=== PATIENT | female | born 1990 | race Hispanic/Latino ===

== ENCOUNTER 2018-11-13 17:14 | Emergency (ER) | payer SELFPAY ==
[2018-11-13 17:21] VITALS: BP 148/96; PULSE 98; RESP 15; TEMP 36.6; O2SAT 99; BMI 51.0
[2018-11-13 20:29] VITALS: BP 140/82; PULSE 95; RESP 18; TEMP 37.1; O2SAT 96
--- NOTE | 2018-11-13 20:32 | ED.URI ---
HPI - URI/Sore Throat <LUZMARIA Harrington - Last Filed: 11/13/18 22:02> General Chief Complaint: Upper Respiratory Symptoms Stated Complaint: red and white stuff back of throats Time Seen by Provider: 11/13/18 20:09 Source: patient Mode of arrival: ambulatory Limitations: no limitations History of Present Illness HPI Narrative: 28-year-old female with history of steatohepatitis here for complaint of sore throat that started since yesterday. She also states she noticed that she has some whitish spots to tonsillar area. She denies any fevers or chills. Positive p.o. intake. No nausea or vomiting. She states she had cold-like symptoms over the past several days as well. These are mostly resolved. She denies any stressors or relievers of her symptoms. No other concerns or complaints at this timeframe MD Complaint: sore throat Related Data Previous Rx's Medication Instructions Recorded amoxicillin-pot clavulanate 1 tab PO Q12H #20 tab 12/20/17 [Augmentin] naproxen 500 mg PO Q12H PRN #20 tab 12/20/17 Allergies Allergy/AdvReac Type Severity Reaction Status Date / Time No Known Drug Allergies Allergy Verified 11/13/18 17:21 Review of Systems <LUZMARIA Harrington - Last Filed: 11/13/18 22:02> Constitutional Denies chills, Denies fatigue, Denies fever(s), Denies lethargy and Denies weakness Eyes Denies change in vision, Denies eye discharge, Denies irritation and Denies loss of vision ENT Ears, Nose, Mouth, and Throat: Reports sore throat Cardiovascular Denies dyspnea and Denies dyspnea on exertion Respiratory Denies cough, Denies dyspnea, Denies dyspnea on exertion and Denies wheezing Gastrointestinal Gastrointestinal: Denies abdominal pain, Denies change in bowel habits, Denies diarrhea, Denies nausea and Denies vomiting Genitourinary Denies hematuria, Denies flank pain, Denies urinary incontinence and Denies urinary urgency Musculoskeletal Denies back pain, Denies muscle weakness, Denies numbness and Denies tingling Integumentary/Breasts Denies pruritus, Denies erythema, Denies rash and Denies wounds Neurologic Denies confusion, Denies loss of vision, Denies numbness, Denies tingling and Denies weakness Psychiatric Denies anxiety, Denies confusion, Denies depression, Denies homicidal ideation and Denies suicidal ideation Endocrine Denies fatigue and Denies flushing Hematologic/Lymphatic Denies easy bruising Allergic/Immunologic Denies wheezing PFSH <LUZMARIA Harrington - Last Filed: 11/13/18 22:02> Medical History Anxiety (Chronic) Non-alcoholic fatty liver disease (Chronic) Obesity (Chronic) Family History (Updated 04/23/17 @ 00:00 by Aixa Gonsalves PA-C) Father Anxiety Mother Depression with anxiety Social History Smoking Status: Never smoker Family History (Updated 04/23/17 @ 00:00 by Aixa Gonsalves PA-C) Father Anxiety Mother Depression with anxiety Social History Smoking Status: Never smoker Exam <LUZMARIA Harrington - Last Filed: 11/13/18 22:02> Initial Vital Signs Initial Vital Signs: Vital Signs Temperature 97.8 F 11/13/18 17:21 Pulse Rate 98 H 11/13/18 17:21 Respiratory Rate 15 11/13/18 17:21 Blood Pressure 148/96 H 11/13/18 17:21 Pulse Oximetry 99 11/13/18 17:21 Const General: cooperative and well developed Nutritional Appearance: well nourished Orientation: alert, awake, oriented x3 and not confused HENKY Mouth: oral mucosae normal and moist mucous membranes Throat: posterior oropharynx abnormal erythema Eyes Conjunctivae: conjunctivae normal Sclera: sclerae normal Pupils: PERRL EOM: EOM intact bilaterally Resp Effort & Inspection: normal respiratory effort, able to speak in complete sentences, no respiratory distress and no use of accessory muscles Auscultation: clear to auscultation bilaterally, no rales, no rhonchi and no wheezes Cardio Rate: regular rate Rhythm: regular rhythm Heart Sounds: no click, no gallops, no murmurs and no rubs Pulses: normal peripheral pulses Skin General: no rashes or lesions noted, No jaundice and No petechiae Neuro General: alert, oriented x3, gait normal and no focal motor deficits Speech: speech normal <Ryan Scott DO - Last Filed: 11/14/18 00:45> Initial Vital Signs Initial Vital Signs: Vital Signs Temperature 97.8 F 11/13/18 17:21 Pulse Rate 98 H 11/13/18 17:21 Respiratory Rate 15 11/13/18 17:21 Blood Pressure 148/96 H 11/13/18 17:21 Pulse Oximetry 99 11/13/18 17:21 Course <LUZMARIA Harrington - Last Filed: 11/13/18 22:02> Vital Signs - 8 hr 11/13/18 17:21 11/13/18 20:29 Temperature 97.8 F 98.7 F Pulse Rate 98 H 95 H Respiratory Rate 15 18 Blood Pressure 148/96 H Blood Pressure [Right Arm] 140/82 Pulse Oximetry 99 96 <Ryan Scott DO - Last Filed: 11/14/18 00:45> Vital Signs - 8 hr 11/13/18 17:21 11/13/18 20:29 Temperature 97.8 F 98.7 F Pulse Rate 98 H 95 H Respiratory Rate 15 18 Blood Pressure 148/96 H Blood Pressure [Right Arm] 140/82 Pulse Oximetry 99 96 MDM - URI/Sore Throat <LUZMARIA Harrington - Last Filed: 11/13/18 22:02> Lab Data Point of Care Testing Rapid Strep A Negative MDM Narrative Medical decision making narrative: Strep test was obtained was negative. Sinus symptoms presents as a viral pharyngitis. [id number] Tylenol or Motrin as needed for any discomfort. Salt water gargles to help with any inflammation. Use lozenges to also help with discomfort. Follow up with primary care provider next week. Plenty of fluids and rest. For any worsening symptoms return to the emergency room. <Ryan Scott DO - Last Filed: 11/14/18 00:45> Lab Data Point of Care Testing Rapid Strep A Negative Discharge Plan Departure Patient Disposition: Home Clinical Impression: Acute viral pharyngitis Discharge Date/Time: 11/13/18 20:56 Interventions: ED Discharge Assessment Last Done: 11/13/18 20:56 Instructions: DI for Viral Pharyngitis Activity Restrictions/Additional Instructions: Strep test was obtained was negative. Sinus symptoms presents as a viral pharyngitis. [id number] Tylenol or Motrin as needed for any discomfort. Salt water gargles to help with any inflammation. Use lozenges to also help with discomfort. Follow up with primary care provider next week. Plenty of fluids and rest. For any worsening symptoms return to the emergency room. Prescriptions: No Action naproxen 500 mg tablet 500 mg PO Q12H PRN (Reason: pain) Qty: 20 RF: 0 amoxicillin-pot clavulanate [Augmentin] 875-125 mg tablet 1 tab PO Q12H Qty: 20 RF: 0 Referrals: Aixa Gonsalves PA-C [Primary Care Provider] - Stand Alone Forms: Work Release Note, Work/School Release <Ryan Scott DO - Last Filed: 11/14/18 00:45> Cosign ED Attending Sarinaature Attestation: I was immediately available in the department for consultation. Documentation has been reviewed. I agree with assessment and plan.
== END 2018-11-13 20:56 | disposition home or self-care (01) ==
PROVIDERS: Emergency Provider Nurse Practitioner Family; Family Provider Physician Assistant; PCP Physician Assistant
DX: J02.9 Acute pharyngitis, unspecified (principal)
CPT/HCPCS: 87880; 99282

== ENCOUNTER → 2018-12-01 09:56 | Outpatient (CLI) | payer OTHER, MEDICAID, SELFPAY | PROVIDERS: Family Provider Physician Assistant; PCP Physician Assistant; Visit Provider Physician Assistant | DX: J02.9 Acute pharyngitis, unspecified (principal) | CPT/HCPCS: 87070 ==

== ENCOUNTER 2019-05-31 22:04 | Emergency (ER) | payer SELFPAY ==
[2019-05-31 22:15] VITALS: BP 150/80; PULSE 108; RESP 26; TEMP 36.8; O2SAT 99; BMI 59.1
--- NOTE | 2019-05-31 22:56 | DI.RAD.S_ITS ---
PROCEDURE: XR CHEST 1V INDICATIONS: shortness of breath TECHNIQUE: One view of the chest was acquired. COMPARISON: CT pulmonary angiogram 05/31/2019. [facility], , CHEST 2 VIEW, 05/21/2012, 13:05. FINDINGS: Surgical changes and devices: None. Lungs and pleura: Lungs are clear. No pleural effusions or pneumothorax. Mediastinum: Mediastinal contours appear normal. Heart size is normal. Bones and chest wall: No suspicious bony lesions. Overlying soft tissues appear unremarkable. IMPRESSION: No acute cardiopulmonary abnormality. Dictated by: Abdulkadir Hassan M.D. on 06/01/2019 at 7:29 Approved by: Abdulkadir Hassan M.D. on 06/01/2019 at 7:30
[2019-05-31 23:04] LABS: Add Manual Diff / Slide Review NO; Basophils Absolute Auto 100 /uL (0-100); Basophils Percent Auto 0.8 % (0-2); Eosinophils Absolute Auto 500 /uL (0-450); Eosinophils Percent Auto 4.2 % (2-4); Hematocrit 36.9 % (36-46); Hemoglobin 12.7 g/dL (12.0-16.0); Lymphocytes Absolute Auto 4600 /uL (1100-4500); Lymphocytes Percent Auto 38.2 % (25-40); Mean Corpuscular HGB Conc 34.4 % (30-36); Mean Corpuscular Hemoglobin 28.7 PG (26-34); Mean Corpuscular Volume 83.5 fL (80-100); Monocytes Absolute Auto 1000 /uL (0-900); Monocytes Percent Auto 7.9 % (3-14); Neutrophils Absolute Auto 5900 /uL (1500-7000); Neutrophils Percent Auto 48.9 % (50-75); Platelet Count 448 X10^3/uL (150-400); Red Blood Cell Count 4.42 X10^6/uL (4.0-5.2); Red Cell Distribution Width 13.4 % (11.6-14.8); White Blood Cell Count 12.1 X10^3/uL (4.5-11.0)
--- NOTE | 2019-05-31 23:05 | ED.SOB ---
HPI - SOB/Dyspnea General Chief Complaint: Shortness of Breath/Dyspnea Stated Complaint: states swelling in her ankles,hard time breathing Time Seen by Provider: 05/31/19 22:17 Source: patient Mode of arrival: Ambulatory History of Present Illness HPI Narrative: Patient is an obese 29-year-old female who presents with increasing shortness of breath. She says it has been ongoing for couple of his weeks progressively getting worse. She says that she typically sleeps with 5 pillows that has not changed. She was going up and downstairs and moving things a few days ago she had a stop frequently. She feels like she can't catch her breath. She denies any chest pain no fevers or productive cough. She has noticed increasing leg swelling as well. In fact her left leg has some erythema on it she is not sure what she did. She denies any travel. She does have a previous smoking history. MD Complaint: shortness of breath Onset (ago): day(s) Severity: moderate Relieving factors: rest Exacerbating factors: exertion and movement Related Data Previous Rx's Medication Instructions Recorded cephalexin [Keflex] 500 mg PO TID #21 cap 06/01/19 Allergies Allergy/AdvReac Type Severity Reaction Status Date / Time No Known Drug Allergies Allergy Verified 12/01/18 09:37 Review of Systems Review of Systems Narrative: GENERAL: Denies chills, fatigue, malaise, fever, sweats, travel HEENT: Denies sinus pain, ear pain, sore throat, difficulty swallowing, neck pain RESPIRATORY: See HPI CARDIOVASCULAR: Denies chest pain, palpitations, orthopnea, edema GASTROINTESTINAL: Denies nausea, vomiting, abdominal pain, diarrhea, constipation, melena. : Denies dysuria, frequency, incontinence, hematuria, urinary retention, flank pain. MUSCULOSKELETAL: Denies weakness, joint pain, or bony pain SKIN: No rash, no erythema, no pruritus NEUROLOGIC: Denies weakness, dizziness, headache, numbness, change in speech, confusion PSYCHIATRIC: No concerning psychosocial issues. 12 point review of systems is negative except for those stated above and HPI Patient History Medical/Surgical History Medical History Anxiety (Chronic) Non-alcoholic fatty liver disease (Chronic) Obesity (Chronic) Family History (Updated 04/23/17 @ 00:00 by Aixa Gonsalves PA-C) Father Anxiety Mother Depression with anxiety Social History Smoking Status: Former smoker Family/Social History Family History Father Anxiety Mother Depression with anxiety Social History Smoking Status: Former smoker alcohol intake frequency: holidays/special occasions only Substance Use Type: does not use Exam Initial Vital Signs Initial Vital Signs: Vital Signs Temperature 98.2 F 05/31/19 22:15 Pulse Rate 108 H 05/31/19 22:15 Respiratory Rate 26 H 05/31/19 22:15 Blood Pressure 150/80 H 05/31/19 22:15 Pulse Oximetry 99 05/31/19 22:15 GENERAL: Overweight well-appearing female HEENT: Head atraumatic,EOMI, pupils reactive, face symmetric CARDIOVASCULAR: Mowing tachycardic regular no murmurs RESPIRATORY: Breath sounds equal bilaterally, no wheezes rales or rhonchi. Speaks in full sentences no difficulty ABDOMEN: Soft, nontender. Normoactive bowel sounds all 4 quadrants. No guarding or rebound. EXTREMITIES: Normal range of motion, no clubbing or edema. Neurovascularly intact NEUROLOGICAL: Alert and oriented x4.Normal gait and speech. SKIN: Warm, dry, no laceration, no petechiae, no rashes or lesions. Course Orders Ordered: ED Orders 05/31/19 22:41 B Type Natriuretic Peptide Stat Complete Blood Count AUTO DIFF Stat Comprehensive Metabolic Panel Stat D Dimer Stat Magnesium Stat Partial Thromboplastin Time Stat Prothrombin Time INR Stat Troponin & CK Cardiac Panel Stat 05/31/19 22:55 Consult to Respiratory Therapy Evaluate & Treat 05/31/19 22:56 XR chest 1V Stat 05/31/19 23:31 CT angio chest PE protocol Stat Discontinued Medications Albuterol/Ipratropium (Duoneb) 3 ml INH NOW ONE Stop: 05/31/19 22:56 Last Admin: 05/31/19 23:21 Dose: 3 ml Documented by: HERNAN Sodium Chloride (Normal Saline 0.9%) 1,000 mls @ 1,000 mls/hr IV BOLUS ONE Stop: 06/01/19 01:47 Last Infusion: 06/01/19 01:55 Dose: 0 mls/hr Documented by: Admin: 06/01/19 00:52 Dose: 1,000 mls/hr Documented by: PATRICIO Ketorolac Tromethamine (Toradol) 30 mg IV NOW ONE Stop: 06/01/19 01:20 Last Admin: 06/01/19 01:25 Dose: 30 mg Documented by: PATRICIO Vital Signs Vital signs: Vital Signs - 8 hr 05/31/19 22:15 05/31/19 23:22 06/01/19 00:15 Temperature 98.2 F Pulse Rate 108 H 110 H Respiratory Rate 26 H 13 Blood Pressure 150/80 H Blood Pressure [Right Arm] 138/81 Pulse Oximetry 99 99 100 06/01/19 01:05 06/01/19 01:55 Temperature 98.1 F Pulse Rate 103 H 102 H Respiratory Rate 20 24 Blood Pressure 136/69 Blood Pressure [Right Arm] 141/83 H Pulse Oximetry 100 99 MDM - SOB/Dyspnea Lab Data Attestation: I reviewed the patient's lab results. Result diagrams: 05/31/19 22:41 05/31/19 22:41 Labs: Lab Results 05/31/19 05/31/19 05/31/19 Range/Units 22:41 22:41 22:41 WBC 12.1 H (4.5-11.0) X10^3/uL RBC 4.42 (4.0-5.2) X10^6/uL Hgb 12.7 (12.0-16.0) g/dL Hct 36.9 (36-46) % MCV 83.5 (80-100) fL MCH 28.7 (26-34) PG MCHC 34.4 (30-36) % RDW 13.4 (11.6-14.8) % Plt Count 448 H (150-400) X10^3/uL Neut % (Auto) 48.9 L (50-75) % Lymph % (Auto) 38.2 (25-40) % [place] % (Auto) 7.9 (3-14) % Eos % (Auto) 4.2 H (2-4) % Baso % (Auto) 0.8 (0-2) % Neut # (Auto) 5900 (5977-0018) /uL Lymph # (Auto) 4600 H (9728-2352) /uL [place] # (Auto) 1000 H (0-900) /uL Eos # (Auto) 500 H (0-450) /uL Baso # (Auto) 100 (0-100) /uL PT 10.4 (10.1-12.7) SECONDS INR 0.9 (0.9-1.3) APTT 35 (26.4-36.2) SECONDS D-Dimer 212 (<230) ng/mL Sodium (137-145) mmol/L Potassium (3.4-5.1) mmol/L Chloride (98-107) mmol/L Carbon Dioxide (22-32) mmol/L BUN (7-17) mg/dL Creatinine (0.52-1.04) mg/dL Estimated GFR (>60) mL/min BUN/Creatinine Ratio (6-22) Glucose (70-100) mg/dL Calcium (8.4-10.2) mg/dL Magnesium 1.9 (1.6-2.3) mg/dL Total Bilirubin (0.2-1.3) mg/dL AST (14-36) IU/L ALT (9-52) IU/L Alkaline Phosphatase (38-126) U/L Total Creatine Kinase 48 (30-135) U/L CK-MB (CK-2) TNP CK-MB (CK-2) Rel Index TNP Troponin I < 0.012 (0.01-0.034) ng/mL B-Natriuretic Peptide < 100 (<100) Total Protein (6.3-8.2) g/dL Albumin (3.5-5.0) g/dL Globulin (1.7-4.1) g/dL Albumin/Globulin Ratio (1.0-2.8) 05/31/19 Range/Units 22:41 WBC (4.5-11.0) X10^3/uL RBC (4.0-5.2) X10^6/uL Hgb (12.0-16.0) g/dL Hct (36-46) % MCV (80-100) fL MCH (26-34) PG MCHC (30-36) % RDW (11.6-14.8) % Plt Count (150-400) X10^3/uL Neut % (Auto) (50-75) % Lymph % (Auto) (25-40) % [place] % (Auto) (3-14) % Eos % (Auto) (2-4) % Baso % (Auto) (0-2) % Neut # (Auto) (3690-8077) /uL Lymph # (Auto) (2797-4302) /uL [place] # (Auto) (0-900) /uL Eos # (Auto) (0-450) /uL Baso # (Auto) (0-100) /uL PT (10.1-12.7) SECONDS INR (0.9-1.3) APTT (26.4-36.2) SECONDS D-Dimer (<230) ng/mL Sodium 138 (137-145) mmol/L Potassium 4.0 (3.4-5.1) mmol/L Chloride 103 (98-107) mmol/L Carbon Dioxide 26 (22-32) mmol/L BUN 15 (7-17) mg/dL Creatinine 0.50 L (0.52-1.04) mg/dL Estimated GFR > 60.0 (>60) mL/min BUN/Creatinine Ratio 30.0 H (6-22) Glucose 148 H (70-100) mg/dL Calcium 9.2 (8.4-10.2) mg/dL Magnesium (1.6-2.3) mg/dL Total Bilirubin 0.3 (0.2-1.3) mg/dL AST 33 (14-36) IU/L ALT 46 (9-52) IU/L Alkaline Phosphatase 159 H (38-126) U/L Total Creatine Kinase (30-135) U/L CK-MB (CK-2) CK-MB (CK-2) Rel Index Troponin I (0.01-0.034) ng/mL B-Natriuretic Peptide (<100) Total Protein 7.6 (6.3-8.2) g/dL Albumin 3.9 (3.5-5.0) g/dL Globulin 3.7 (1.7-4.1) g/dL Albumin/Globulin Ratio 1.1 (1.0-2.8) Point of Care Testing Test Results Negative Urine Dip Bedside Urine Glucose Negative Bedside Urine Bilirubin - Negative Bedside Urine Ketone - Negative Urine Specific [place] 1.020 Bedside Urine Occult Blood - Negative Bedside Urine pH 6.0 Bedside Urine Protein +/- 15 Bedside Urine Urobilinogen +/- 1mg Bedside Urine Nitrite - Negative Bedside Urine Leukocytes - Negative Esterase Imaging Data Chest x-ray: Attestation: I personally reviewed and interpreted this imaging study as follows: My impression: No acute cardiopulmonary process CT scan - chest: 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 interval [address] elevations or depressions no Q-waves MDM Narrative Medical decision making narrative: The patient had no relief after albuterol. She is still tachycardic. Chest x-ray does not show any obvious pneumonia or cardiopulmonary abnormality. BNP is negative lungs are clear unlikely to be CHF. D-dimer is also negative however persistently tachycardic obese female will check for PE. PE scan was suboptimal bolus, D dimer is negative, patient got significantly hypoxic. Not significantly high suspicion for PE. Heart rate does improve with some IV fluids. She has very minimal erythema on her left ankle but it is tender appears to be cellulitis. No significant streaking she is septic. Shortness of breath may be related to her body habitus versus a virus. Discharge Plan Departure Patient Disposition: Home Clinical Impression: Cellulitis of left anterior lower leg Discharge Date/Time: 06/01/19 01:55 Instructions: DI for Cellulitis -- Adult Activity Restrictions/Additional Instructions: *You have been diagnosed with left leg cellulitis *What to do: No clear explanation of her shortness of breath, possible viral syndrome. Monitor redness on the leg *Continue to take medications as directed Keflex 500 mg 3 times a day for 7 days--> SENT TO [facility] [place] *Follow up with your primary care provider in 2-3 days *Return to ER if you should have increasing redness, worsening shortness of breath, worsening chest pain or any new, worsening or concerning symptoms Prescriptions: New cephalexin [Keflex] 500 mg capsule 500 mg PO TID Qty: 21 RF: 0 Referrals: [facility] [Outside] Aixa Gonsalves PA-C [Primary Care Provider] -
[2019-05-31 23:08] LABS: PTT Partial Thromboplastin Tim 35 SECONDS (26.4-36.2)
[2019-05-31 23:15] LABS: Alanine Aminotransferase 46 IU/L (9-52); Albumin 3.9 g/dL (3.5-5.0); Albumin Globulin Ratio 1.1 (1.0-2.8); Alkaline Phosphatase 159 U/L (38-126); Aspartate Aminotransferase 33 IU/L (14-36); Bilirubin Total 0.3 mg/dL (0.2-1.3); Blood Urea Nitrogen 15 mg/dL (7-17); Calcium 9.2 mg/dL (8.4-10.2); Carbon Dioxide 26 mmol/L (22-32); Chloride 103 mmol/L (98-107); Creatine Kinase 48 U/L (30-135); Estimated Glomerular Filt Rate > 60.0 mL/min (>60); Globulin 3.7 g/dL (1.7-4.1); Glucose 148 mg/dL (70-100); HEMOLYSIS 16 (0-50); Magnesium 1.9 mg/dL (1.6-2.3); Sodium 138 mmol/L (137-145); Total Protein 7.6 g/dL (6.3-8.2)
[2019-05-31 23:19] LABS: D Dimer 212 ng/mL (<230); INR 0.9 (0.9-1.3); Prothrombin Time 10.4 SECONDS (10.1-12.7)
[2019-05-31] MEDS: ALBUTEROL/IPRATROPIUM 3 ML AMPUL INH (23:21)
[2019-05-31 23:22] VITALS: O2SAT 99
[2019-05-31 23:26] LABS: B Type Natriuretic Peptide < 100 (<100); Troponin I < 0.012 ng/mL (0.01-0.034)
--- NOTE | 2019-05-31 23:31 | DI.CT.S_ITS ---
PROCEDURE: CT ANGIO CHEST PE PROTOCOL INDICATIONS: shortness of breath TECHNIQUE: After the administration of intravenous contrast, 2 mm thick sections acquired from the pulmonary apices to the posterior costophrenic angles. 3-dimensional maximum intensity projection (MIP) coronal and sagittal reformats were then acquired through the thorax. For radiation dose reduction, the following was used: automated exposure control, adjustment of mA and/or kV according to patient size. COMPARISON: CXR 05/31/2019. FINDINGS: Image quality: Nondiagnostic opacification of the pulmonary arteries. Pulmonary arteries: Poor opacification of the pulmonary arteries. No obvious central pulmonary embolism. Lungs and pleura: Lungs are clear. No pleural effusions or pneumothorax. Central and peripheral airways are patent. Mediastinum: Heart size is normal, without pericardial effusion. No mediastinal or hilar adenopathy. Thoracic aorta is normal in caliber and enhancement. Esophagus is normal in caliber, without hiatal hernia demonstrated. Fluid in the distal esophagus. Bones and chest wall: No suspicious bony lesions. Ribs and thoracic spine appear intact throughout. Thyroid gland is normal. No axillary or supraclavicular adenopathy. Abdomen: Visualized upper abdominal solid organs appear normal in the early arterial phase of enhancement. Diffuse low-attenuation liver suggestive of hepatic steatosis. IMPRESSION: 1. Poor opacification of the pulmonary arteries limits evaluation for pulmonary embolism. No obvious central pulmonary embolism. 2. Lungs are clear. 3. Probable hepatic steatosis. This report is concordant with the overnight preliminary interpretation. Dictated by: Abdulkadir Hassan M.D. on 06/01/2019 at 8:02 Approved by: Abdulkadir Hassan M.D. on 06/01/2019 at 8:07
[2019-06-01 00:15] VITALS: BP 138/81; PULSE 110; RESP 13; O2SAT 100
[2019-06-01] MEDS: SODIUM CHLORIDE 0.9% 1,000 ML 1000 ML IV (00:52)
[2019-06-01 01:05] VITALS: BP 141/83; PULSE 103; RESP 20; O2SAT 100
[2019-06-01] MEDS: KETOROLAC 60 MG/2 ML VIAL 30 MG IV (01:25)
[2019-06-01 01:55] VITALS: BP 136/69; PULSE 102; RESP 24; TEMP 36.7; O2SAT 99
== END 2019-06-01 01:55 | disposition home or self-care (01) ==
PROVIDERS: Emergency Provider Emergency Medicine; Family Provider Physician Assistant; PCP Physician Assistant
DX: L03.116 Cellulitis of left lower limb (principal); R06.02 Shortness of breath; R07.9 Chest pain, unspecified
CPT/HCPCS: 36415; 71045; 71275; 80053; 81003; 81025; 82550; 82553; 83735; 83880; 84484; 85025; 85379; 85610; 85730; 93005; 93041; 94640; 96361; 96374; 99284; 99285; J1885; Q9967

== ENCOUNTER 2019-06-01 11:57 | Emergency (ER) | payer SELFPAY ==
[2019-06-01 12:11] VITALS: BP 143/94; PULSE 94; RESP 18; TEMP 36.3; O2SAT 97
--- NOTE | 2019-06-01 14:04 | ED_ITS ---
HPI - Recheck/Abnormal Lab/Rx <HARDY Dorantes - Last Filed: 06/01/19 16:03> General Chief Complaint: Recheck/Abnormal Lab/Rx Stated Complaint: LEFT LEG PAIN,SOB Time Seen by Provider: 06/01/19 13:04 Source: patient and family Mode of arrival: Wheelchair Limitations: no limitations History of Present Illness HPI narrative: The patient is a 29-year-old female former smoker who presents for chief complaint of worsening redness and pain of her left lower leg. She was evaluated at this facility last night, diagnosed with cellulitis of her anterior aspect of her lower leg. She has not started her antibiotics yet. She presents for chief complaint of worsening redness of her leg. She denies any fevers nausea vomiting or diarrhea. Upon inquiry, she states that she did not have time to fill her antibiotic prescription. She has not taken anything for pain. Related Data Previous Rx's Medication Instructions Recorded cephalexin [Keflex] 500 mg PO TID #21 cap 06/01/19 Allergies Allergy/AdvReac Type Severity Reaction Status Date / Time No Known Drug Allergies Allergy Verified 12/01/18 09:37 Review of Systems <HARDY Dorantes - Last Filed: 06/01/19 16:03> Review of Systems Narrative: GENERAL: Denies chills, fatigue, malaise, fever, sweats. HEENT: Denies sinus pain, ear pain, sore throat, difficulty swallowing, dizziness. RESPIRATORY: Denies dyspnea, cough, wheezing, hemoptysis, sputum. CARDIOVASCULAR: Denies chest pain, palpitations, orthopnea, edema, GASTROINTESTINAL: Denies nausea, vomiting, abdominal pain, diarrhea, constipation, melena. : Denies dysuria, frequency, incontinence, hematuria, urinary retention. MUSCULOSKELETAL: denies weakness, joint pain, or bony pain SKIN: See HPI NEUROLOGIC: Denies weakness, headache, numbness, change in speech, confusion, seizures, incoordination. PSYCHIATRIC: No concerning psychosocial issues. 12 point review of systems is negative except for those stated above Patient History <HARDY Dorantes - Last Filed: 06/01/19 16:03> Medical History Medical History Anxiety (Chronic) Non-alcoholic fatty liver disease (Chronic) Obesity (Chronic) Family History Family History Father Anxiety Mother Depression with anxiety Social History Social History Smoking Status: Former smoker alcohol intake frequency: holidays/special occasions only Substance Use Type: does not use Exam <HARDY Dorantes - Last Filed: 06/01/19 16:03> Narrative Exam Narrative: GENERAL: Morbidly obese female in no acute distress HEAD: Atraumatic. Normocephalic. No temporal or scalp tenderness. EYES: Pupils equal round and reactive. Extraocular motions intact. No scleral icterus. No injection or drainage. ENT: Nose without bleeding, purulent drainage or septal hematoma. Throat without erythema, tonsillar hypertrophy or exudate. Uvula midline. Airway patent. NECK: Trachea midline. No JVD or lymphadenopathy. Supple, nontender, no meningeal signs. CARDIOVASCULAR: Regular rate and rhythm RESPIRATORY: Clear to auscultation. Breath sounds equal bilaterally. No wheezes, rales, or rhonchi. No cough. No increased respiratory effort. No accessory muscle use. GASTROINTESTINAL: Abdomen soft, non-tender, nondistended. No hepato- splenomegaly, or palpable masses. No guarding. EXTREMITIES: No clubbing, cyanosis, or edema. No joint tenderness, effusion, or edema noted. BACK: Nontender without deformity or crepitance. No flank tenderness. NEURO: AOx3. SKIN: 8 x 6 cm erythema on anterior aspect of left lower pearl. 2 x 2 cm very diffuse erythema noted on medial aspect of left thigh. Initial Vital Signs Initial Vital Signs: Vital Signs Temperature 97.4 F L 06/01/19 12:11 Pulse Rate 94 H 06/01/19 12:11 Respiratory Rate 18 06/01/19 12:11 Blood Pressure 143/94 H 06/01/19 12:11 Pulse Oximetry 97 06/01/19 12:11 <Bola Scott DO - Last Filed: 06/01/19 17:29> Initial Vital Signs Initial Vital Signs: Vital Signs Temperature 97.4 F L 06/01/19 12:11 Pulse Rate 94 H 06/01/19 12:11 Respiratory Rate 18 06/01/19 12:11 Blood Pressure 143/94 H 06/01/19 12:11 Pulse Oximetry 97 06/01/19 12:11 Course <HARDY Dorantes - Last Filed: 06/01/19 16:03> Orders Ordered: ED Orders 06/01/19 14:41 periph venous low extrem lt Stat Discontinued Medications Cephalexin HCl (Keflex) 500 mg PO NOW ONE Stop: 06/01/19 13:45 Last Admin: 06/01/19 14:27 Dose: 500 mg Documented by: NORMA Ketorolac Tromethamine (Toradol) 10 mg PO NOW ONE Stop: 06/01/19 13:45 Last Admin: 06/01/19 14:27 Dose: 10 mg Documented by: NORMA Vital Signs Vital signs: Vital Signs - 8 hr 06/01/19 12:11 06/01/19 15:53 Temperature 97.4 F L Pulse Rate 94 H 86 Respiratory Rate 18 19 Blood Pressure 143/94 H Blood Pressure [Left Wrist] 145/97 H Pulse Oximetry 97 96 <Bola Scott DO - Last Filed: 06/01/19 17:29> Orders Ordered: ED Orders 06/01/19 14:41 US periph venous low extrem lt Stat Discontinued Medications Cephalexin HCl (Keflex) 500 mg PO NOW ONE Stop: 06/01/19 13:45 Last Admin: 06/01/19 14:27 Dose: 500 mg Documented by: CELIAAPO Ketorolac Tromethamine (Toradol) 10 mg PO NOW ONE Stop: 06/01/19 13:45 Last Admin: 06/01/19 14:27 Dose: 10 mg Documented by: NORMA Vital Signs Vital signs: Vital Signs - 8 hr 06/01/19 12:11 06/01/19 15:53 Temperature 97.4 F L Pulse Rate 94 H 86 Respiratory Rate 18 19 Blood Pressure 143/94 H Blood Pressure [Left Wrist] 145/97 H Pulse Oximetry 97 96 MDM - Recheck/Abnormal Lab/Rx <HARDY Dorantes - Last Filed: 06/01/19 16:03> Imaging Data Venous US: Radiologist's impression: Ofelia Lang 29 F [address] [address] Ultrasound Report Signed Patient: Ofelia Lang LMR#: [id number] : 1990Acct:[id number] Age/Sex: 29 / FDate of Service: 06/01/19 Loc: ED Accession Number: [id number] Procedure: US periph venous low extrem lt Ordering Provider: Luiza Espino PROCEDURE: US PERIPH VENOUS LOW EXTREM LT INDICATIONS: REDNESS, SWELLING LEFT LEG TECHNIQUE: Real-time imaging, as well as color and pulse Doppler interrogation, were performed of the lower extremity deep veins from the inguinal ligament to the popliteal fossa. COMPARISON: CT pulmonary angiogram 05/31/2019. FINDINGS: The common femoral, femoral and popliteal veins are normally compressible, and free of intraluminal thrombus. Color and pulse Doppler demonstrate normal phasic intraluminal flow. There is normal augmentation response to distal compression maneuver. IMPRESSION: Negative exam. No left lower extremity DVT. Dictated by: Abdulkadir Hassan M.D. on 06/01/2019 at 15:36 Approved by: Abdulkadir Hassan M.D. on 06/01/2019 at 15:37 [facility] Narrative Medical decision making narrative: The patient is a 29-year-old female who presents with a chief complaint of continued pain and erythema of her left lower leg. She was seen at this facility last night and diagnosed with cellulitis. She has not filled or taken any of her antibiotics that were prescribed last night. She received a thorough evaluation last night including lab work, chest x-ray and CTA all which came back negative. The patient presents with her mother today who was concerned about a DVT of her left lower leg. I discussed at length her negative D-dimer, normal CTA but agreed to get an ultrasound due to family concerns and worsening of redness. This came back negative. I suspect that there redness and pain is likely due to an untreated cellulitis as the patient has not taken any of her prescribed antibiotics. I encouraged at length follow up with her PCP in the next few days. Discussed monitoring for fevers or any acute changes or concerns. She was given her 1st dose of antibiotics as well as a dose of Toradol in the emergency department. Patient states understanding of return precautions as well as follow-up care. No questions or concerns upon discharge. Discharge Plan Departure Patient Disposition: Home Clinical Impression: Cellulitis Qualifiers: Site of cellulitis: extremity Site of cellulitis of extremity: lower extremity Laterality: left Qualified Code(s): L03.116 - Cellulitis of left lower limb Discharge Date/Time: 06/01/19 15:54 Instructions: DI for Cellulitis -- Adult Activity Restrictions/Additional Instructions: Please start the antibiotics that were prescribed last night. We gave you a dose here in the emergency department. Please monitor for fever, spreading redness despite antibiotic therapy. Please follow up with primary care provider in a few days. Please come back to the emergency department for any acute concerns such as chest pain, shortness of breath, inability keep down fluids etc Prescriptions: No Action cephalexin [Keflex] 500 mg capsule 500 mg PO TID Qty: 21 RF: 0 Referrals: Aixa Gonsalves PA-C [Primary Care Provider] - <Bola Scott DO - Last Filed: 06/01/19 17:29> Sign Out Provider Sign Out Attestation: I was available for consultation during this patient's emergency department visit. This chart is signed by myself for administrative purposes only. I did not have direct contact with this patient during this visit. They were seen independently by the APC.
[2019-06-01] MEDS: KETOROLAC 10 MG TABLET PO (14:27)
[2019-06-01] MEDS: cephALEXin 250 MG CAPSULE 500 MG PO (14:27)
--- NOTE | 2019-06-01 14:41 | DI.US.S_ITS ---
PROCEDURE: US PERIPH VENOUS LOW EXTREM LT INDICATIONS: REDNESS, SWELLING LEFT LEG TECHNIQUE: Real-time imaging, as well as color and pulse Doppler interrogation, were performed of the lower extremity deep veins from the inguinal ligament to the popliteal fossa. COMPARISON: CT pulmonary angiogram 05/31/2019. FINDINGS: The common femoral, femoral and popliteal veins are normally compressible, and free of intraluminal thrombus. Color and pulse Doppler demonstrate normal phasic intraluminal flow. There is normal augmentation response to distal compression maneuver. IMPRESSION: Negative exam. No left lower extremity DVT. Dictated by: Abdulkadir Hassan M.D. on 06/01/2019 at 15:36 Approved by: Abdulkadir Hassan M.D. on 06/01/2019 at 15:37
[2019-06-01 15:53] VITALS: BP 145/97; PULSE 86; RESP 19; O2SAT 96
== END 2019-06-01 15:54 | disposition home or self-care (01) ==
PROVIDERS: Emergency Provider Nurse Practitioner Family; PCP Physician Assistant
DX: L03.116 Cellulitis of left lower limb (principal)
CPT/HCPCS: 93971; 99282; 99284

== ENCOUNTER 2019-06-21 09:38 | Emergency (ER) | payer SELFPAY ==
[2019-06-21 09:44] VITALS: BP 152/96; PULSE 88; RESP 20; TEMP 36.5; O2SAT 100; BMI 58.3
--- NOTE | 2019-06-21 10:16 | ED_ITS ---
HPI - Nausea/Vomiting/Diarrhea General Chief complaint: Nausea/Vomiting/Diarrhea Stated complaint: Thowing up blood, headache Time Seen by Provider: 06/21/19 10:01 Source: patient Mode of arrival: Ambulatory Limitations: no limitations History of Present Illness HPI Narrative: Patient comes emergency department complaining of bilateral temporal headache and nausea that started early this morning. Patient states t hat the headache started 1st and is a pressure in pain kind of feeling. She states she then became nauseated and vomited several times. Patient has a history of migraines and states this feels similar, but this is worse than other episodes. Patient denies fevers or chills. No recent head injuries. No cough or rhinorrhea. She recently had a cellulitis, but this has resolved. No visual changes or other focal neurologic deficits. No other complaints at this time. Related Data Previous Rx's Medication Instructions Recorded cephalexin [Keflex] 500 mg PO TID #21 cap 06/01/19 ondansetron 4 mg PO Q6H PRN #10 tab 06/21/19 Allergies Allergy/AdvReac Type Severity Reaction Status Date / Time No Known Drug Allergies Allergy Verified 12/01/18 09:37 Review of Systems Constitutional Constitutional: Denies chills, Denies fatigue, Denies fever(s), Denies frequent falls, Reports headache(s), Denies lethargy and Denies weakness Eyes Eyes: Denies change in vision, Denies eye discharge, Denies irritation and Denies loss of vision ENT Ears, Nose, Mouth, and Throat: Denies change in voice, Denies dizziness, Reports headache(s), Denies neck pain, Denies sore throat and Denies throat swelling Cardiovascular Cardiovascular: Denies chest pain, Denies irregular heart rhythm, Denies lightheadedness, Denies palpitations, Denies dyspnea, Denies dyspnea on exertion and Denies orthopnea Respiratory Respiratory: Denies cough, Denies dyspnea, Denies dyspnea on exertion and Denies wheezing Gastrointestinal Gastrointestinal: Denies abdominal pain, Denies change in bowel habits, Denies diarrhea, Reports nausea and Reports vomiting Genitourinary Genitourinary: Denies hematuria, Denies flank pain, Denies urinary incontinence and Denies urinary urgency Musculoskeletal Musculoskeletal: Denies back pain, Denies muscle weakness, Denies neck pain, Denies numbness and Denies tingling Integumentary/Breasts Skin/Breast: Denies pruritus, Denies erythema, Denies rash and Denies wounds Neurologic Neurologic: Denies behavioral changes, Denies confusion, Denies dizziness, Denies frequent falls, Reports headache(s), Denies loss of vision, Denies numbness, Denies tingling and Denies weakness Psychiatric Psychiatric: Denies anxiety, Denies behavioral changes, Denies confusion, Denies depression, Denies homicidal ideation and Denies suicidal ideation Endocrine Endocrine: Denies fatigue, Denies flushing and Denies palpitations Hematologic/Lymphatic Hematologic/Lymphatic: Denies easy bruising Allergic/Immunologic Allergic/Immunologic: Denies urticaria, Denies throat swelling and Denies wheezing Patient History Medical History (Updated 06/21/19 @ 11:59 by Trudi Asher MD) Anxiety (Chronic) Atypical chest pain (Acute) Dyspepsia (Acute) Eczema of both hands (Acute) Migraine (Acute) BRAY (nonalcoholic steatohepatitis) (Acute) Non-alcoholic fatty liver disease (Chronic) Obesity (Chronic) Panic disorder (04/23/17) Family History Father Anxiety Mother Depression with anxiety Social History Smoking Status: Former smoker alcohol intake frequency: holidays/special occasions only Alcohol type: beer, wine and hard liquor Substance Use Type: does not use Exam Initial Vital Signs Initial Vital Signs: Vital Signs Temperature 97.7 F 06/21/19 09:44 Pulse Rate 88 06/21/19 09:44 Respiratory Rate 20 06/21/19 09:44 Blood Pressure 152/96 H 06/21/19 09:44 Pulse Oximetry 100 06/21/19 09:44 Const General: cooperative and well developed Nutritional Appearance: well nourished Orientation: alert, awake, oriented x3 and not confused Other: Patient appears mildly uncomfortable, laying in bed in a darkened room is speaking quietly. [facility] Head: normocephalic and atraumatic Ears: external ears normal Nose: external nose normal and No nasal discharge Face and sinus: face symmetric and No dry mucous membranes Mouth: oral mucosae normal and moist mucous membranes Teeth and gingiva: dentition normal Eyes General: appearance normal, both eyes and all related structures Eyelids: eyelids normal Conjunctivae: conjunctivae normal Sclera: sclerae normal Pupils: PERRL EOM: EOM intact bilaterally Neck Neck: normal visual inspection, trachea midline, No lymphadenopathy, No midline deformity and No JVD Lymphatic: No lymphedema Other: Full range of motion neck; no nuchal rigidity. Chest Chest: normal inspection of the chest Resp Effort & Inspection: normal respiratory effort, able to speak in complete sentences, no respiratory distress and no use of accessory muscles Auscultation: clear to auscultation bilaterally, no rales, no rhonchi and no wheezes Cardio Rate: regular rate Rhythm: regular rhythm Heart Sounds: no click, no gallops, no murmurs and no rubs Pulses: normal peripheral pulses GI Inspection: non-distended Palpation: soft, no hepatosplenomegaly, No guarding, No pulsatile mass and No tender Back/Spine/Pelvis Back: No CVA tenderness Cervical Spine: cervical ROM normal and No pain with cervical ROM Thoracic/Lumbar Spine: thoracic and lumbar spine normal to inspection Skin General: no rashes or lesions noted, No jaundice and No petechiae Neuro General: alert, oriented x3, gait normal and no focal motor deficits Speech: speech normal Extrem General: full ROM, no clubbing, cyanosis or edema, no pedal edema and no calf tenderness Psych Appearance: well kempt Mental Status: mental status grossly normal Attitude: cooperative Thought Content: normal and suicidality Judgment: judgment good Course Course Course Narrative: Patient was treated symptomatically with IV fluids, Compazine, Benadryl, and Toradol, was found to be much improved after this. There is no evidence of a serious or emergent cause of the patient's headache at this time. We have discussed home management of her symptoms, as well as the usual indications for return. Orders Ordered: Discontinued Medications Diphenhydramine HCl (Benadryl) 12.5 mg IV NOW ONE Stop: 06/21/19 10:15 Last Admin: 06/21/19 10:41 Dose: 12.5 mg Documented by: RICHARD Sodium Chloride (Normal Saline 0.9%) 1,000 mls @ 1,000 mls/hr IV BOLUS ONE Stop: 06/21/19 11:13 Last Infusion: 06/21/19 11:40 Dose: 0 mls/hr Documented by: Admin: 06/21/19 10:40 Dose: 1,000 mls/hr Documented by: RICHARD Ketorolac Tromethamine (Toradol) 30 mg IV NOW ONE Stop: 06/21/19 10:15 Last Admin: 06/21/19 10:41 Dose: 30 mg Documented by: RICHARD Prochlorperazine (Compazine) 10 mg IV NOW ONE Stop: 06/21/19 10:15 Last Admin: 06/21/19 10:39 Dose: 10 mg Documented by: RICHARD Vital Signs Vital signs: Vital Signs - 8 hr 06/21/19 09:44 Temperature 97.7 F Pulse Rate 88 Respiratory Rate 20 Blood Pressure 152/96 H Pulse Oximetry 100 MDM - Nausea/Vomiting/Diarrhea Medical Records Attestation: I reviewed the patient's medical records. Discharge Plan Departure Patient Disposition: Home Clinical Impression: Migraine Qualifiers: Migraine type: unspecified Status migrainosus presence: without status migrainosus Intractability: not intractable Qualified Code(s): G43.909 - Migraine, unspecified, not intractable, without status migrainosus Discharge Date/Time: 06/21/19 12:54 Instructions: DI for Migraine Activity Restrictions/Additional Instructions: Please be sure to get plenty of fluids, and take the nausea medication, as needed. Prescriptions: New ondansetron 4 mg tablet,disintegrating 4 mg PO Q6H PRN (Reason: nausea and vomiting) Qty: 10 RF: 0 No Action cephalexin [Keflex] 500 mg capsule 500 mg PO TID Qty: 21 RF: 0 Referrals: Aixa Gonsalves PA-C [Primary Care Provider] -
[2019-06-21 10:39] VITALS: BP 133/79; PULSE 89
[2019-06-21] MEDS: PROCHLORPERAZINE 10 MG/2 ML VIAL IV (10:39)
[2019-06-21] MEDS: SODIUM CHLORIDE 0.9% 1,000 ML 1000 ML IV (10:40)
[2019-06-21] MEDS: KETOROLAC 60 MG/2 ML VIAL 30 MG IV (10:41)
[2019-06-21] MEDS: diphenhydrAMINE 50 MG/ML VIAL 12.5 MG IV (10:41)
[2019-06-21 11:23] VITALS: BP 141/83; PULSE 94; O2SAT 98
[2019-06-21 12:38] VITALS: BP 155/93; PULSE 88; RESP 19; O2SAT 99
== END 2019-06-21 12:54 | disposition home or self-care (01) ==
PROVIDERS: Emergency Provider Emergency Medicine; PCP Physician Assistant
DX: G43.909 Migraine, unspecified, not intractable, without status migrainosus (principal)
CPT/HCPCS: 96361; 96374; 96375; 99283; J0780; J1200; J1885

== ENCOUNTER 2020-01-22 07:05 | Emergency (ER) | payer OTHER, SELFPAY ==
[2020-01-22 07:11] VITALS: BP 161/108; PULSE 101; RESP 18; TEMP 36.5; O2SAT 97; BMI 52.9
[2020-01-22 07:13] VITALS: BP 161/108; PULSE 98; RESP 20; TEMP 36.5; O2SAT 97
--- NOTE | 2020-01-22 07:23 | ED_ITS ---
HPI - General Adult General Chief complaint: Abdominal Pain Stated complaint: PASSING KIDNEY STONE RT SIDE PAIN Time Seen by Provider: 01/22/20 07:07 Source: patient Mode of arrival: Family Vehicle Limitations: no limitations History of Present Illness HPI narrative: 30-year-old female here for evaluation of right-sided flank/abdominal pain that is radiating to her right groin area. She states the symptoms started rather abruptly at approximately 0430 this morning. She was awake at time of the symptoms. She states that it has come and gone. Not worse with palpation or movement. Has had some nausea when the pain is at its maximum. States she has had some urinary hesitancy. No fevers. Did take an Excedrin this morning for the discomfort. She states that at the time of my evaluation her nausea and her pain has much improved however on the ride to the emergency department she states she was in quite a bit of discomfort. No vaginal bleeding. She has normal vaginal discharge. Did have some diarrhea yesterday. No prior abdominal surgeries. She states that back in 2016 she thought that she had passed a kidney stone secondary to having quite a bit of discomfort with urination. She states that the pain today is similar to that. She has never had a CT scan before to evaluate for stones. Related Data Previous Rx's Medication Instructions Recorded cephalexin [Keflex] 500 mg PO TID #21 cap 06/01/19 ondansetron 4 mg PO Q6H PRN #10 tab 06/21/19 Allergies Allergy/AdvReac Type Severity Reaction Status Date / Time No Known Drug Allergies Allergy Verified 12/01/18 09:37 Review of Systems Constitutional Constitutional: Denies fever(s) and Denies headache(s) ENT Ears, Nose, Mouth, and Throat: Denies headache(s) Cardiovascular Cardiovascular: Denies chest pain Respiratory Respiratory: Denies cough Gastrointestinal Gastrointestinal: Reports abdominal pain, Denies change in bowel habits, Reports diarrhea, Reports nausea and Denies vomiting Genitourinary Genitourinary: Denies dysuria, Reports flank pain (Right-sided), Reports urinary hesitancy and Denies urinary urgency Genitourinary: Denies dysuria, Reports flank pain (Right-sided), Reports urinary hesitancy and Denies urinary urgency Musculoskeletal Musculoskeletal: Denies arthralgias, Reports back pain (Right flank pain), Denies deformity and Denies myalgias Integumentary/Breasts Skin/Breast: Denies lesions and Denies rash Neurologic Neurologic: Denies behavioral changes and Denies headache(s) Psychiatric Psychiatric: Denies behavioral changes Hematologic/Lymphatic Hematologic/Lymphatic: Denies easy bleeding and Denies easy bruising Patient History Medical History Anxiety (Chronic) Atypical chest pain (Acute) Dyspepsia (Acute) Eczema of both hands (Acute) Migraine (Acute) BRAY (nonalcoholic steatohepatitis) (Acute) Non-alcoholic fatty liver disease (Chronic) Obesity (Chronic) Panic disorder (04/23/17) Family History Father Anxiety Mother Depression with anxiety Social History Smoking Status: Former smoker Smoking Status: Former smoker alcohol intake frequency: holidays/special occasions only Alcohol type: beer, wine and hard liquor Substance Use Type: does not use Exam Initial Vital Signs Initial Vital Signs: Vital Signs Temperature 97.7 F 01/22/20 07:11 Pulse Rate 101 H 01/22/20 07:11 Respiratory Rate 18 01/22/20 07:11 Blood Pressure 161/108 H 01/22/20 07:11 Pulse Oximetry 97 01/22/20 07:11 Const General: cooperative, comfortable and well developed Limitations: mental status not altered HENMT Head: normal to inspection and normocephalic Resp Effort & Inspection: normal respiratory effort Auscultation: clear to auscultation bilaterally Cardio Rate: tachycardic Rhythm: regular rhythm GI Inspection: non-distended Palpation: soft and tender (Right-sided abdomen) Back/Spine/Pelvis Back: No CVA tenderness Skin Lesions: no lesions Rashes: no rashes Neuro General: patient alert and patient awake Cognition: normal cognition Speech: speech normal Extrem General: normal to inspection and capillary refill normal Psych Appearance: grossly normal and well kempt Scores GCS Ministerio coma scale eye opening: Spontaneous [place] coma scale verbal response: Orientated [place] coma scale motor response: Obey commands [place] coma scale total score: 15 Course Orders Ordered: ED Orders 01/22/20 07:23 CT kidney ureter bladder (KUB) Stat 01/22/20 07:30 Basic Metabolic Panel Stat Complete Blood Count AUTO DIFF Stat Test Serum,Qual Stat Urine Microscopic Stat Discontinued Medications Ketorolac Tromethamine (Toradol) 30 mg IV NOW ONE Stop: 01/22/20 08:26 Last Admin: 01/22/20 08:29 Dose: 30 mg Documented by: ELIER Vital Signs Vital signs: Vital Signs - 8 hr 01/22/20 07:11 01/22/20 07:13 Temperature 97.7 F 97.7 F Pulse Rate 101 H 98 H Respiratory Rate 18 20 Blood Pressure 161/108 H Blood Pressure [Left Arm] 161/108 H Pulse Oximetry 97 97 Medical Decision Making Lab Data Lab results reviewed: Yes I reviewed the patient's lab results. Result diagrams: 01/22/20 07:30 01/22/20 07:30 Labs: Lab Results 01/22/20 01/22/20 01/22/20 Range/Units 07:30 07:30 07:30 WBC 8.4 (4.5-11.0) X10^3/uL RBC 4.76 (4.0-5.2) X10^6/uL Hgb 13.4 (12.0-16.0) g/dL Hct 39.2 (36-46) % MCV 82.4 (80-100) fL MCH 28.3 (26-34) PG MCHC 34.3 (30-36) % RDW 13.4 (11.6-14.8) % Plt Count 457 H (150-400) X10^3/uL Neut % (Auto) 48.7 L (50-75) % Lymph % (Auto) 35.3 (25-40) % [place] % (Auto) 7.7 (3-14) % Eos % (Auto) 7.4 H (2-4) % Baso % (Auto) 0.9 (0-2) % Neut # (Auto) 4100 (6141-1782) /uL Lymph # (Auto) 3000 (2361-5878) /uL [place] # (Auto) 600 (0-900) /uL Eos # (Auto) 600 H (0-450) /uL Baso # (Auto) 100 (0-100) /uL Sodium 137 (137-145) mmol/L Potassium 4.2 (3.4-5.1) mmol/L Chloride 103 (98-107) mmol/L Carbon Dioxide 24 (22-32) mmol/L BUN 12 (7-17) mg/dL Creatinine 0.53 (0.52-1.04) mg/dL Estimated GFR > 60.0 (>60) mL/min BUN/Creatinine Ratio 22.6 H (6-22) Glucose 142 H (70-100) mg/dL Calcium 9.4 (8.4-10.2) mg/dL Serum , Qual Negative (Negative) Urine RBC (0-5/HPF) Urine WBC (0-5/HPF) Ur Squamous Epith Cells (0-5/HPF) Urine Bacteria (None) Urine Mucus (Negative) Ur Culture Indicated? 01/22/20 Range/Units 07:30 WBC (4.5-11.0) X10^3/uL RBC (4.0-5.2) X10^6/uL Hgb (12.0-16.0) g/dL Hct (36-46) % MCV (80-100) fL MCH (26-34) PG MCHC (30-36) % RDW (11.6-14.8) % Plt Count (150-400) X10^3/uL Neut % (Auto) (50-75) % Lymph % (Auto) (25-40) % [place] % (Auto) (3-14) % Eos % (Auto) (2-4) % Baso % (Auto) (0-2) % Neut # (Auto) (5042-2678) /uL Lymph # (Auto) (1614-7074) /uL [place] # (Auto) (0-900) /uL Eos # (Auto) (0-450) /uL Baso # (Auto) (0-100) /uL Sodium (137-145) mmol/L Potassium (3.4-5.1) mmol/L Chloride (98-107) mmol/L Carbon Dioxide (22-32) mmol/L BUN (7-17) mg/dL Creatinine (0.52-1.04) mg/dL Estimated GFR (>60) mL/min BUN/Creatinine Ratio (6-22) Glucose (70-100) mg/dL Calcium (8.4-10.2) mg/dL Serum , Qual (Negative) Urine RBC 10-30/hpf H (0-5/HPF) Urine WBC 0-1/hpf (0-5/HPF) Ur Squamous Epith Cells 1-5 /hpf (0-5/HPF) Urine Bacteria None seen (None) Urine Mucus 1+ H (Negative) Ur Culture Indicated? Cult not indicated Urine Dip Bedside Urine Glucose Negative Bedside Urine Bilirubin - Negative Bedside Urine Ketone +/- 5 Urine Specific [place] 1.020 Bedside Urine Occult Blood +++ Bedside Urine pH 6 Bedside Urine Protein +/- 15 Bedside Urine Urobilinogen +/- 1mg Bedside Urine Nitrite - Negative Bedside Urine Leukocytes - Negative Esterase Point of care testing: Urine Dip Bedside Urine Glucose Negative Bedside Urine Bilirubin - Negative Bedside Urine Ketone +/- 5 Urine Specific [place] 1.020 Bedside Urine Occult Blood +++ Bedside Urine pH 6 Bedside Urine Protein +/- 15 Bedside Urine Urobilinogen +/- 1mg Bedside Urine Nitrite - Negative Bedside Urine Leukocytes - Negative Esterase Imaging Data CT scan - abdomen/pelvis: Radiologist's Impression: [address] [address] [address] Scan Report Signed Patient: Ofelia Church LMR#: [id number] : 1990Acct:[id number] Age/Sex: te of Service: 01/22/20 Loc: ED Accession Number: [id number] Procedure: CT kidney ureter bladder (KUB) Ordering Provider: Bola Scott D.O. PROCEDURE: CT KIDNEY URETER BLADDER (KUB) INDICATIONS: Right-sided colic pain concern for stone TECHNIQUE: Noncontrast 5 mm thick sections acquired from the diaphragms to the symphysis. 5 mm thick coronal and sagittal reformats were then performed. For radiation dose reduction, the following was used: automated exposure control, adjustment of mA and/or kV according to patient size. COMPARISON: [facility], CT, KIDNEY/ URETER/BLADDER, 04/30/2015, 7:14. [facility], CT, ABDOMEN/PELVIS WITH CONTRAST, 08/10/2014, 10:18. FINDINGS: Image quality: Diagnostic. Lung bases: Lung bases are clear. Heart size is normal. Urinary system: Both kidneys are normal in size. No kidney stones. No hydronephrosis or perinephric fat stranding. Mild retained lobulation of the kidneys is present. Both ureters appear non-dilated throughout their expected courses. Bladder wall thickness is normal; no calcified bladder stones. Other solid organs: The liver is mildly enlarged and measures approximately 21 cm in craniocaudal dimension. The liver is noted to be diffusely hypodense when compared to the spleen. Areas of more normal liver density are seen within the region of the gallbladder fossa. No intrahepatic or extrahepatic biliary dilatation is evident. The pancreas and spleen are within normal limits. The adrenals are unremarkable. Peritoneum and bowel: The stomach and duodenum are unremarkable. The small bowel loops are nondilated. The appendix is well-visualized and normal in size. No mesenteric inflammation is appreciated. The colon is within normal limits. There is no fr ee fluid, loculated fluid collection, or free air. Nodes and vessels: No retroperitoneal or mesenteric adenopathy by size criteria. Aorta and inferior vena cava are normal in caliber. Abdominal wall: No ventral hernias. Other pelvic soft tissues: No free pelvic fluid. No inguinal hernias or adenopathy. The uterus and ovaries are not adequately evaluated on CT, but appear to be within normal limits. Bones: No suspicious bony lesions. No vertebral body compression fractures. IMPRESSION: 1. No nephroureterolithiasis or hydronephrosis. 2. Normal appendix. 3. No bowel obstruction. 4. Mild hepatomegaly with corresponding hepatic steatosis. Dictated by: Ze Benjamin M.D. on 01/22/2020 at 8:07 Approved by: Ze Benjamin M.D. on 01/22/2020 at 8:11 MDM Narrative Medical decision making narrative: Creatinine is unremarkable, urinalysis shows blood but no signs of infection. Patient did urinate here in the emergency department states that she thinks that she passed a stone. I was able to evaluate this and does appear that she passed a small stone. Afterwards she states the pain improved although she was ?sore? CT scan shows no other acute pathology. Feel we can hold on further workup for now the patient be safely discharged home. We discussed the use of Tylenol/ibuprofen. She was given return precautions and follow-up instructions. She expressed understanding and agreement. Discharge Plan Departure Patient Disposition: Home Clinical Impression: Renal colic on right side Instructions: Kidney Stones -- Adult Activity Restrictions/Additional Instructions: I suspect that you past year kidney stone while you were here in the emergency department. The CT scan shows no other acute issues in your abdomen. Recommend you contact your primary provider for follow-up. Return to the emergency department for any new or worsening symptoms Prescriptions: No Action cephalexin [Keflex] 500 mg capsule 500 mg PO TID Qty: 21 RF: 0 ondansetron 4 mg tablet,disintegrating 4 mg PO Q6H PRN (Reason: nausea and vomiting) Qty: 10 RF: 0
[2020-01-22 07:35] LABS: Add Manual Diff / Slide Review NO; Basophils Absolute Auto 100 /uL (0-100); Basophils Percent Auto 0.9 % (0-2); Eosinophils Absolute Auto 600 /uL (0-450); Eosinophils Percent Auto 7.4 % (2-4); Hematocrit 39.2 % (36-46); Hemoglobin 13.4 g/dL (12.0-16.0); Lymphocytes Absolute Auto 3000 /uL (1100-4500); Lymphocytes Percent Auto 35.3 % (25-40); Mean Corpuscular HGB Conc 34.3 % (30-36); Mean Corpuscular Hemoglobin 28.3 PG (26-34); Mean Corpuscular Volume 82.4 fL (80-100); Monocytes Absolute Auto 600 /uL (0-900); Monocytes Percent Auto 7.7 % (3-14); Neutrophils Absolute Auto 4100 /uL (1500-7000); Neutrophils Percent Auto 48.7 % (50-75); Platelet Count 457 X10^3/uL (150-400); Red Blood Cell Count 4.76 X10^6/uL (4.0-5.2); Red Cell Distribution Width 13.4 % (11.6-14.8); White Blood Cell Count 8.4 X10^3/uL (4.5-11.0)
[2020-01-22 07:45] LABS: BUN Creatinine Ratio 22.6 (6-22); Blood Urea Nitrogen 12 mg/dL (7-17); Calcium 9.4 mg/dL (8.4-10.2); Carbon Dioxide 24 mmol/L (22-32); Chloride 103 mmol/L (98-107); Estimated Glomerular Filt Rate > 60.0 mL/min (>60); Glucose 142 mg/dL (70-100); HEMOLYSIS < 15 (0-50); Potassium 4.2 mmol/L (3.4-5.1); Sodium 137 mmol/L (137-145)
[2020-01-22 07:48] LABS: Bacteria Urine None Seen
[2020-01-22 07:53] LABS: Pregnancy Test Serum,Qual Negative (Negative)
[2020-01-22 07:55] LABS: RBC Urine 10-30/HPF (0-5/HPF)
[2020-01-22 07:56] LABS: Culture Indicated Urine Cult Not Indicated; Mucus Urine 1+ (Negative); Squamous Epithelial Cell Urine 1-5 /HPF (0-5/HPF); WBC Urine 0-1/HPF (0-5/HPF)
[2020-01-22] MEDS: KETOROLAC 60 MG/2 ML VIAL 30 MG IV (08:29)
--- NOTE | 2020-01-22 08:38 | PC.NURSE ---
patient up to bathroom, steady gate. Patient noticed a stone in the toilet. provider looked at it and stated that is likely a stone.
[2020-01-22 09:25] VITALS: BP 129/74; PULSE 77; RESP 14; O2SAT 98
== END 2020-01-22 09:31 | disposition home or self-care (01) ==
PROVIDERS: Emergency Provider Emergency Medicine
DX: N20.0 Calculus of kidney (principal)
CPT/HCPCS: 36415; 74176; 80048; 81003; 81015; 84703; 85025; 96374; 99284; J1885

== ENCOUNTER → 2020-02-08 08:50 | Outpatient (CLI) | payer OTHER, SELFPAY ==
[2020-02-08 09:54] LABS: Hematocrit 38.9 % (36-46); Hemoglobin 13.3 g/dL (12.0-16.0); Mean Corpuscular HGB Conc 34.1 % (30-36); Mean Corpuscular Hemoglobin 28.4 PG (26-34); Mean Corpuscular Volume 83.4 fL (80-100); Platelet Count 425 X10^3/uL (150-400); Red Blood Cell Count 4.67 X10^6/uL (4.0-5.2); Red Cell Distribution Width 13.3 % (11.6-14.8); White Blood Cell Count 8.3 X10^3/uL (4.5-11.0)
[2020-02-08 09:58] LABS: Hemoglobin A1C% w Est Avg Glu 6.1 % (4.0-6.0)
[2020-02-08 10:21] LABS: Alanine Aminotransferase 79 IU/L (<35); Albumin 4.3 g/dL (3.5-5.0); Albumin Globulin Ratio 1.2 (1.0-2.8); Alkaline Phosphatase 137 U/L (38-126); Aspartate Aminotransferase 50 IU/L (14-36); Bilirubin Total 0.4 mg/dL (0.2-1.3); Blood Urea Nitrogen 12 mg/dL (7-17); Calcium 9.8 mg/dL (8.4-10.2); Carbon Dioxide 27 mmol/L (22-32); Chloride 102 mmol/L (98-107); Cholesterol 154 mg/dL (140-199); Estimated Glomerular Filt Rate > 60.0 mL/min (>60); Globulin 3.6 g/dL (1.7-4.1); Glucose 106 mg/dL (70-100); HDL Cholesterol 42 mg/dL (40-60); HEMOLYSIS < 15 (0-50); LDL Cholesterol Calculated 84 mg/dL (<100); Potassium 4.9 mmol/L (3.4-5.1); Sodium 137 mmol/L (137-145); Total Protein 7.9 g/dL (6.3-8.2); Triglycerides 141 mg/dL (35-150)
[2020-02-08 10:49] LABS: TSH w/ Reflex to FT4 3.16 uIU/mL (0.47-4.68)
== END ==
LOC: LAB 08:51
PROVIDERS: PCP Registered Nurse Diabetes Educator; Referring Provider Registered Nurse Diabetes Educator; Visit Provider Registered Nurse Diabetes Educator
DX: E66.01 Morbid (severe) obesity due to excess calories (principal); K75.81 Nonalcoholic steatohepatitis (NASH); Z68.43 Body mass index [BMI] 50.0-59.9, adult; K76.0 Fatty (change of) liver, not elsewhere classified; R53.83 Other fatigue
CPT/HCPCS: 36415; 80053; 80061; 83036; 84443; 85027

== ENCOUNTER → 2020-03-11 12:09 | Outpatient (CLI) | payer OTHER, SELFPAY ==
[2020-03-11 13:10] LABS: Pregnancy Test Urine Negative (Negative)
[2020-03-11 13:11] LABS: Appearance Urine UA Clear; Color Urine UA Orange
[2020-03-11 13:14] LABS: Bacteria Urine Few (2-10); Culture Indicated Urine Cult Not Indicated; RBC Urine 1-5/HPF (0-5/HPF); Squamous Epithelial Cell Urine 5-10 /HPF (0-5/HPF); WBC Urine 5-10/HPF (0-5/HPF)
== END ==
PROVIDERS: Student in an Organized Health Care Education/Training Program; PCP Registered Nurse Diabetes Educator; Referring Provider Registered Nurse Diabetes Educator; Visit Provider Registered Nurse Diabetes Educator
DX: R31.9 Hematuria, unspecified (principal)
CPT/HCPCS: 81001; 81025

== ENCOUNTER 2020-05-16 16:57 | Emergency (ER) | payer OTHER, SELFPAY ==
[2020-05-16 17:12] VITALS: BP 175/102; PULSE 109; RESP 28; TEMP 37.2; O2SAT 99; BMI 54.8
[2020-05-16 17:22] LABS: Pregnancy Test Urine Negative (Negative)
[2020-05-16] MEDS: SODIUM CHLORIDE 0.9% 1,000 ML 1000 ML IV (17:26)
[2020-05-16 17:31] LABS: Add Manual Diff / Slide Review NO; Basophils Absolute Auto 100 /uL (0-100); Basophils Percent Auto 0.5 % (0-2); Eosinophils Absolute Auto 400 /uL (0-450); Eosinophils Percent Auto 2.6 % (2-4); Hematocrit 37.6 % (36-46); Hemoglobin 12.6 g/dL (12.0-16.0); Lymphocytes Absolute Auto 4100 /uL (1100-4500); Lymphocytes Percent Auto 25.9 % (25-40); Mean Corpuscular HGB Conc 33.6 % (30-36); Mean Corpuscular Hemoglobin 27.8 PG (26-34); Mean Corpuscular Volume 82.8 fL (80-100); Monocytes Absolute Auto 900 /uL (0-900); Monocytes Percent Auto 5.9 % (3-14); Neutrophils Absolute Auto 10300 /uL (1500-7000); Neutrophils Percent Auto 65.1 % (50-75); Platelet Count 453 X10^3/uL (150-400); Red Blood Cell Count 4.55 X10^6/uL (4.0-5.2); Red Cell Distribution Width 13.3 % (11.6-14.8); White Blood Cell Count 15.9 X10^3/uL (4.5-11.0)
[2020-05-16 17:39] LABS: INR 0.9 (0.9-1.3); Prothrombin Time 10.7 SECONDS (10.1-12.7)
[2020-05-16 17:41] LABS: Bilirubin Urine UA NEGATIVE (NEGATIVE); Glucose Urine UA NEGATIVE (Negative); Ketones Urine UA NEGATIVE (NEGATIVE); Leukocyte Esterase Urine UA TRACE (NEGATIVE); Nitrite Urine UA NEGATIVE (Negative); Occult Blood Urine UA 3+ (Negative); Protein Urine UA 2+ (Negative); Specific Gravity Urine UA 1.025 (1.000-1.035); Urobilinogen Urine UA 0.2 E.U./dL (0.2)
[2020-05-16 17:41] LABS: PTT Partial Thromboplastin Tim 37 SECONDS (26.4-36.2)
[2020-05-16 17:42] LABS: Appearance Urine UA CLOUDY; Color Urine UA Red; pH Urine UA 5.5 (4.5-8.0)
[2020-05-16 17:44] LABS: Lactate (Lactic Acid) 1.6 mmol/L (0.7-2.1)
[2020-05-16 17:45] LABS: Alanine Aminotransferase 73 IU/L (<35); Albumin 4.5 g/dL (3.5-5.0); Albumin Globulin Ratio 1.1 (1.0-2.8); Alkaline Phosphatase 151 U/L (38-126); Aspartate Aminotransferase 61 IU/L (14-36); BUN Creatinine Ratio 26.5 (6-22); Bilirubin Total 0.5 mg/dL (0.2-1.3); Blood Urea Nitrogen 13 mg/dL (7-17); Calcium 9.4 mg/dL (8.4-10.2); Carbon Dioxide 26 mmol/L (22-32); Chloride 104 mmol/L (98-107); Estimated Glomerular Filt Rate > 60.0 mL/min (>60); Globulin 4.2 g/dL (1.7-4.1); Glucose 111 mg/dL (70-100); HEMOLYSIS 84 (0-50); Lipase 90 U/L (23-300); Sodium 139 mmol/L (137-145); Total Protein 8.7 g/dL (6.3-8.2)
[2020-05-16 17:46] LABS: Potassium 4.9 mmol/L (3.4-5.1)
[2020-05-16 17:48] LABS: Bacteria Urine Few (2-10); Culture Indicated Urine Specimen Cultured; RBC Urine >100/HPF (0-5/HPF); Squamous Epithelial Cell Urine 1-5 /HPF (0-5/HPF); WBC Urine 10-30/HPF (0-5/HPF)
[2020-05-16 18:00] LABS: Procalcitonin < 0.05 ng/mL (<0.5)
--- NOTE | 2020-05-16 18:36 | ED_ITS ---
HPI - Female Genitourinary <LUZMARIA Simental - Last Filed: 05/17/20 02:08> General Chief complaint: Upper Respiratory Symptoms Stated complaint: BLOOD IN URINE BLADDER INFECTION FEVER Time Seen by Provider: 05/16/20 17:04 Source: patient Mode of arrival: Ambulatory Limitations: no limitations History of Present Illness HPI Narrative: This is a 30-year-old female, former smoker, who has history of pre diabetes, anxiety, fatty liver and GERD with significant other with chief complain of suprapubic abdominal discomfort with left flank pain with dysuria and hematuria that started at 1:00 p.m. today. Patient reports she had another UTI in the beginning of this year but does not frequently get UTIs. Patient reports chills and feeling hot and foggy in her head and mild lightheadedness as associated symptoms. Patient denies history of kidney infection in the past. She denies chest pain, dyspnea, nausea or vomiting. Patient reports her rate is usually in 90s to 100s. Patient contacted primary care for provider JG Little and was instructed to going to ED for an evaluation and treatment. LMP was 04/03/20 and she is recently . Related Data Previous Rx's Medication Instructions Recorded omeprazole 20 mg capsule,delayed 20 mg PO BID #60 cap 02/08/20 release metformin 500 mg tablet 500 mg PO BID #180 tab 04/18/20 cephalexin [Keflex] 500 mg PO Q6H 7 Days #28 cap 05/16/20 Allergies Allergy/AdvReac Type Severity Reaction Status Date / Time No Known Drug Allergies Allergy Verified 02/08/20 07:59 Review of Systems <LUZMARIA Simental - Last Filed: 05/17/20 02:08> Review of Systems Narrative: General: See HPI HEENT: Denies sinus pain, ear pain, sore throat, difficulty swallowing, (+) mild dizziness. Respiratory: Denies dyspnea, cough, wheezing, hemoptysis, sputum. Cardiovascular: Denies chest pain, palpitations, orthopnea, edema. Gastrointestinal: Denies nausea, vomiting, abdominal pain, diarrhea, constipation, melena. : See HPI Musculoskeletal: Denies weakness, joint pain or bony pain. Skin: Denies rash, skin lesions, or other. Neurologic: Denies weakness, headache, numbness, change in speech, confusion, seizures, incoordination. Psychiatric: No concerning psychosocial issues. 12-point review of systems is negative except for those stated above. Patient History <LUZMARIA Simental - Last Filed: 05/17/20 02:08> Medical History Anxiety (Chronic) Atypical chest pain (Acute) Dyspepsia (Acute) Eczema of both hands (Acute) Elevated platelet count (Acute) Fatigue (Acute) GERD (gastroesophageal reflux disease) (Acute) Impaired fasting glucose (Acute) Migraine (Acute) BRAY (nonalcoholic steatohepatitis) (Acute) Non-alcoholic fatty liver disease (Chronic) Obesity (Chronic) Panic disorder (04/23/17) Pre-diabetes (Acute) Family History Father Anxiety Mother Depression with anxiety alcohol intake frequency: 0-2 drinks per day Alcohol type: beer, wine and hard liquor Substance Use Type: does not use Exam <LUZMARIA Simental - Last Filed: 05/17/20 02:08> Narrative Exam Narrative: GEN: Alert, oriented x 3, obese and in no acute distress. Head: Normal cephalic, atraumatic. No scalp or temporal tenderness, palpable mass or rash. EYES: Pupils are equal, round, and reactive to light and accommodation. Extraoc ular muscles are intact bilaterally. There is no subconjunctival hemorrhage, exudate and sclera non-icteric. ENT: Hearing grossly intact. Nose without bleeding, purulent discharge or deviation. Mucous membrane moist, no mucosal lesion. Throat without erythema, tonsillar hypertrophy or exudate. Uvula in midline, airway patent. Neck: Trachea in midline. No JVD, non-tender without lymphadenopathy. No masses or thyroid megaly. Supple, non-tender and no meningeal signs. CARDIAC: Normal regular tachy rate and rhythm without murmurs, gallops, or rubs. No chest wall tenderness. No peripheral edema, cyanosis or pallor. Capillary refill is less than 2 seconds. RESPIRATORY: Lungs are clear to auscultate bilaterally. No cough, wheezes, rales, or rhonchi. No stridor, respiratory distress, increase work of breathing, or accessary muscle used. ABD: Abdomen soft and non-distended, tender to palpate in suprapubic region. No guarding or rebound tenderness to palpate. Bowel sounds are normal in all 4 quadrants. There is no palpable masses or organomegaly. EXT: Full painless ROM of all extremities with no loss of sensation, strength, effusion or edema. SKIN: Warm, dry, normal color for patient. No erythema, lesions or rash over visible areas. BACK: Nontender without deformity or crepitance. Left flank mildly tender to palpate. NEUROLOGICAL: Alert and oriented to place, time and person. Sensation and motor function intact bilaterally. No facial droops, dysphasia. PSYCHIATRIC: Good judgement and reason, without hallucinations, abnormal affect or abnormal behaviors during the examination. Patient is not suicidal. Initial Vital Signs Initial Vital Signs: Vital Signs Temperature 99 F 05/16/20 17:12 Pulse Rate 109 H 05/16/20 17:12 Respiratory Rate 28 H 05/16/20 17:12 Blood Pressure 175/102 H 05/16/20 17:12 Pulse Oximetry 99 05/16/20 17:12 <Ashley Farfan DO - Last Filed: 05/21/20 07:37> Initial Vital Signs Initial Vital Signs: Vital Signs Temperature 99 F 05/16/20 17:12 Pulse Rate 109 H 05/16/20 17:12 Respiratory Rate 28 H 05/16/20 17:12 Blood Pressure 175/102 H 05/16/20 17:12 Pulse Oximetry 99 05/16/20 17:12 Scores <Ruel SarahWARNER NoelP - Last Filed: 05/17/20 02:08> GCS Ministerio coma scale eye opening: Spontaneous Ministerio coma scale verbal response: Orientated Ministerio coma scale motor response: Obey commands Ministerio coma scale total score: 15 qSOFA Altered Mental Status (GCS <15): No Respiratory rate greater than/equal to 22: Yes Systolic blood pressure less than or equal to 100: No qSOFA Total: 1 0-1 Not High Risk 1-3 High risk Course <WARNER SimentalP - Last Filed: 05/17/20 02:08> Orders Ordered: Discontinued Medications Sodium Chloride (Normal Saline 0.9%) 1,000 mls @ 1,000 mls/hr IV BOLUS ONE Stop: 05/16/20 18:09 Last Infusion: 05/16/20 18:57 Dose: 0 mls/hr Documented by: Admin: 05/16/20 17:26 Dose: 1,000 mls/hr Documented by: ANASTASIYA Ceftriaxone Sodium/Dextrose (Rocephin) 1 gm in 50 mls @ 100 mls/hr IV NOW ONE Stop: 05/16/20 18:48 Last Infusion: 05/16/20 19:35 Dose: 0 mls/hr Documented by: Admin: 05/16/20 18:57 Dose: 100 mls/hr Documented by: ALBERTO Vital Signs Vital signs: Vital Signs - 8 hr 05/16/20 19:00 05/16/20 19:39 Pulse Rate 99 H 97 H Respiratory Rate 14 14 Blood Pressure 156/98 H 139/76 Pulse Oximetry 98 99 <Ashley Farfan DO - Last Filed: 05/21/20 07:37> Orders Ordered: Discontinued Medications Sodium Chloride (Normal Saline 0.9%) 1,000 mls @ 1,000 mls/hr IV BOLUS ONE Stop: 05/16/20 18:09 Last Infusion: 05/16/20 18:57 Dose: 0 mls/hr Documented by: Admin: 05/16/20 17:26 Dose: 1,000 mls/hr Documented by: ANASTASIYA Ceftriaxone Sodium/Dextrose (Rocephin) 1 gm in 50 mls @ 100 mls/hr IV NOW ONE Stop: 05/16/20 18:48 Last Infusion: 05/16/20 19:35 Dose: 0 mls/hr Documented by: Admin: 05/16/20 18:57 Dose: 100 mls/hr Documented by: ALBERTO Vital Signs Vital signs: Vital Signs - 8 hr 05/16/20 19:00 05/16/20 19:39 Pulse Rate 99 H 97 H Respiratory Rate 14 14 Blood Pressure 156/98 H 139/76 Pulse Oximetry 98 99 MDM - Female Genitourinary <LUZMARIA Simental - Last Filed: 05/17/20 02:08> Differential Diagnosis Differential diagnosis: Likely urinary tract infection, cystitis and other (Pyelonephritis, kidney stone) Medical Records Attestation: I reviewed the patient's medical records. Lab Data Attestation: I reviewed the patient's lab results. Result diagrams: 05/16/20 17:20 05/16/20 17:20 Labs: Lab Results 05/16/20 05/16/20 05/16/20 Range/Units 17:05 17:05 17:20 WBC 15.9 H (4.5-11.0) X10^3/uL RBC 4.55 (4.0-5.2) X10^6/uL Hgb 12.6 (12.0-16.0) g/dL Hct 37.6 (36-46) % MCV 82.8 (80-100) fL MCH 27.8 (26-34) PG MCHC 33.6 (30-36) % RDW 13.3 (11.6-14.8) % Plt Count 453 H (150-400) X10^3/uL Neut % (Auto) 65.1 (50-75) % Lymph % (Auto) 25.9 (25-40) % [place] % (Auto) 5.9 (3-14) % Eos % (Auto) 2.6 (2-4) % Baso % (Auto) 0.5 (0-2) % Neut # (Auto) 45458 H (0066-2374) /uL Lymph # (Auto) 4100 (9464-3410) /uL [place] # (Auto) 900 (0-900) /uL Eos # (Auto) 400 (0-450) /uL Baso # (Auto) 100 (0-100) /uL PT (10.1-12.7) SECONDS INR (0.9-1.3) APTT (26.4-36.2) SECONDS Sodium (137-145) mmol/L Potassium (3.4-5.1) mmol/L Chloride (98-107) mmol/L Carbon Dioxide (22-32) mmol/L BUN (7-17) mg/dL Creatinine (0.52-1.04) mg/dL Estimated GFR (>60) mL/min BUN/Creatinine Ratio (6-22) Glucose (70-100) mg/dL Lactate (0.7-2.1) mmol/L Calcium (8.4-10.2) mg/dL Total Bilirubin (0.2-1.3) mg/dL AST (14-36) IU/L ALT (<35) IU/L Alkaline Phosphatase (38-126) U/L Total Protein (6.3-8.2) g/dL Albumin (3.5-5.0) g/dL Globulin (1.7-4.1) g/dL Albumin/Globulin Ratio (1.0-2.8) Lipase (23-300) U/L Procalcitonin (<0.5) ng/mL Urine Color Red Urine Appearance Cloudy Urine pH 5.5 (4.5-8.0) Ur Specific [place] 1.025 (1.000-1.035) Urine Protein 2+ H (Negative) Urine Glucose (UA) Negative (Negative) g/dL Urine Ketones Negative (NEGATIVE) Urine Occult Blood 3+ H (Negative) Urine Nitrate Negative (Negative) Urine Bilirubin Negative (NEGATIVE) Urine Urobilinogen 0.2 (0.2) E.U./dL Ur Leukocyte Esterase Trace H (NEGATIVE) Urine RBC >100/hpf H (0-5/HPF) Urine WBC 10-30/hpf H (0-5/HPF) Ur Squamous Epith Cells 1-5 /hpf (0-5/HPF) Urine Bacteria Few (2-10) H (None) Ur Culture Indicated? Specimen cultured Urine Test Negative (Negative) 05/16/20 05/16/20 05/16/20 Range/Units 17:20 17:20 17:20 WBC (4.5-11.0) X10^3/uL RBC (4.0-5.2) X10^6/uL Hgb (12.0-16.0) g/dL Hct (36-46) % MCV (80-100) fL MCH (26-34) PG MCHC (30-36) % RDW (11.6-14.8) % Plt Count (150-400) X10^3/uL Neut % (Auto) (50-75) % Lymph % (Auto) (25-40) % [place] % (Auto) (3-14) % Eos % (Auto) (2-4) % Baso % (Auto) (0-2) % Neut # (Auto) (8991-8792) /uL Lymph # (Auto) (7038-4711) /uL [place] # (Auto) (0-900) /uL Eos # (Auto) (0-450) /uL Baso # (Auto) (0-100) /uL PT 10.7 (10.1-12.7) SECONDS INR 0.9 (0.9-1.3) APTT 37 H D (26.4-36.2) SECONDS Sodium 139 (137-145) mmol/L Potassium 4.9 (3.4-5.1) mmol/L Chloride 104 (98-107) mmol/L Carbon Dioxide 26 (22-32) mmol/L BUN 13 (7-17) mg/dL Creatinine 0.49 L (0.52-1.04) mg/dL Estimated GFR > 60.0 (>60) mL/min BUN/Creatinine Ratio 26.5 H (6-22) Glucose 111 H (70-100) mg/dL Lactate (0.7-2.1) mmol/L Calcium 9.4 (8.4-10.2) mg/dL Total Bilirubin 0.5 (0.2-1.3) mg/dL AST 61 H (14-36) IU/L ALT 73 H (<35) IU/L Alkaline Phosphatase 151 H (38-126) U/L Total Protein 8.7 H (6.3-8.2) g/dL Albumin 4.5 (3.5-5.0) g/dL Globulin 4.2 H (1.7-4.1) g/dL Albumin/Globulin Ratio 1.1 (1.0-2.8) Lipase 90 (23-300) U/L Procalcitonin < 0.05 (<0.5) ng/mL Urine Color Urine Appearance Urine pH (4.5-8.0) Ur Specific [place] (1.000-1.035) Urine Protein (Negative) Urine Glucose (UA) (Negative) g/dL Urine Ketones (NEGATIVE) Urine Occult Blood (Negative) Urine Nitrate (Negative) Urine Bilirubin (NEGATIVE) Urine Urobilinogen (0.2) E.U./dL Ur Leukocyte Esterase (NEGATIVE) Urine RBC (0-5/HPF) Urine WBC (0-5/HPF) Ur Squamous Epith Cells (0-5/HPF) Urine Bacteria (None) Ur Culture Indicated? Urine Test (Negative) 05/16/20 Range/Units 17:20 WBC (4.5-11.0) X10^3/uL RBC (4.0-5.2) X10^6/uL Hgb (12.0-16.0) g/dL Hct (36-46) % MCV (80-100) fL MCH (26-34) PG MCHC (30-36) % RDW (11.6-14.8) % Plt Count (150-400) X10^3/uL Neut % (Auto) (50-75) % Lymph % (Auto) (25-40) % [place] % (Auto) (3-14) % Eos % (Auto) (2-4) % Baso % (Auto) (0-2) % Neut # (Auto) (4236-9736) /uL Lymph # (Auto) (4241-9138) /uL [place] # (Auto) (0-900) /uL Eos # (Auto) (0-450) /uL Baso # (Auto) (0-100) /uL PT (10.1-12.7) SECONDS INR (0.9-1.3) APTT (26.4-36.2) SECONDS Sodium (137-145) mmol/L Potassium (3.4-5.1) mmol/L Chloride (98-107) mmol/L Carbon Dioxide (22-32) mmol/L BUN (7-17) mg/dL Creatinine (0.52-1.04) mg/dL Estimated GFR (>60) mL/min BUN/Creatinine Ratio (6-22) Glucose (70-100) mg/dL Lactate 1.6 (0.7-2.1) mmol/L Calcium (8.4-10.2) mg/dL Total Bilirubin (0.2-1.3) mg/dL AST (14-36) IU/L ALT (<35) IU/L Alkaline Phosphatase (38-126) U/L Total Protein (6.3-8.2) g/dL Albumin (3.5-5.0) g/dL Globulin (1.7-4.1) g/dL Albumin/Globulin Ratio (1.0-2.8) Lipase (23-300) U/L Procalcitonin (<0.5) ng/mL Urine Color Urine Appearance Urine pH (4.5-8.0) Ur Specific [place] (1.000-1.035) Urine Protein (Negative) Urine Glucose (UA) (Negative) g/dL Urine Ketones (NEGATIVE) Urine Occult Blood (Negative) Urine Nitrate (Negative) Urine Bilirubin (NEGATIVE) Urine Urobilinogen (0.2) E.U./dL Ur Leukocyte Esterase (NEGATIVE) Urine RBC (0-5/HPF) Urine WBC (0-5/HPF) Ur Squamous Epith Cells (0-5/HPF) Urine Bacteria (None) Ur Culture Indicated? Urine Test (Negative) [facility] Narrative Medical decision making narrative: This is a 30-year-old female who has history of pre diabetes and GERD presents to ED with hematuria and dysuria which started this afternoon with mild left flank pain and suprapubic pain. Patient reports subjective fever and chills without nausea or vomiting. Reports LMP was about 6 weeks ago and she is recently . Patient nontoxic appearing. Oral temperature was 99? F with slight tachycardia of 109 beats per minute and tachypnea of 28 per minute with slight hypertensive. Urine test was positive for protein, occult blood, trace leuks but negative for nitrate. Urine WBC is 10-30/hpf with few urine bacteria and urine cultures pending. Patient was treated with 1 L of normal saline with concerns for urosepsis. Elevated white count of 15.9 and slightly increased platelet count of 453. Patient's baseline platelet count is elevated from 425-457 in the past. Kidney function test is normal. Creatinine of 0.47 with normal estimated GFR. Today's LFT test is mildly elevated. Sixty-one, ALT 73, alk phosphatase 151 and patient reports is known to have fatty liver. Normal lactate and negative for procalcitonin. Given leukocytosis with left-sided mild flank pain, patient was treated with Rocephin 1 g IV before discharged to home. Patient advised to take Keflex 4 times a day for next 7 days to treated cystitis and mild kidney infection. Patient's heart rates improved to 90s after the treatment which patient states is her baseline. Patient reports improved symptoms. Strict return precautions were discussed with patient patient verbalized understanding and agreement with treatment plan. <Ashley Farfan, DO - Last Filed: 05/21/20 07:37> Lab Data Labs: Lab Results 05/16/20 05/16/20 05/16/20 Range/Units 17:05 17:05 17:20 WBC 15.9 H (4.5-11.0) X10^3/uL RBC 4.55 (4.0-5.2) X10^6/uL Hgb 12.6 (12.0-16.0) g/dL Hct 37.6 (36-46) % MCV 82.8 (80-100) fL MCH 27.8 (26-34) PG MCHC 33.6 (30-36) % RDW 13.3 (11.6-14.8) % Plt Count 453 H (150-400) X10^3/uL Neut % (Auto) 65.1 (50-75) % Lymph % (Auto) 25.9 (25-40) % [place] % (Auto) 5.9 (3-14) % Eos % (Auto) 2.6 (2-4) % Baso % (Auto) 0.5 (0-2) % Neut # (Auto) 89360 H (8009-3299) /uL Lymph # (Auto) 4100 (9959-9495) /uL [place] # (Auto) 900 (0-900) /uL Eos # (Auto) 400 (0-450) /uL Baso # (Auto) 100 (0-100) /uL PT (10.1-12.7) SECONDS INR (0.9-1.3) APTT (26.4-36.2) SECONDS Sodium (137-145) mmol/L Potassium (3.4-5.1) mmol/L Chloride (98-107) mmol/L Carbon Dioxide (22-32) mmol/L BUN (7-17) mg/dL Creatinine (0.52-1.04) mg/dL Estimated GFR (>60) mL/min BUN/Creatinine Ratio (6-22) Glucose (70-100) mg/dL Lactate (0.7-2.1) mmol/L Calcium (8.4-10.2) mg/dL Total Bilirubin (0.2-1.3) mg/dL AST (14-36) IU/L ALT (<35) IU/L Alkaline Phosphatase (38-126) U/L Total Protein (6.3-8.2) g/dL Albumin (3.5-5.0) g/dL Globulin (1.7-4.1) g/dL Albumin/Globulin Ratio (1.0-2.8) Lipase (23-300) U/L Procalcitonin (<0.5) ng/mL Urine Color Red Urine Appearance Cloudy Urine pH 5.5 (4.5-8.0) Ur Specific [place] 1.025 (1.000-1.035) Urine Protein 2+ H (Negative) Urine Glucose (UA) Negative (Negative) g/dL Urine Ketones Negative (NEGATIVE) Urine Occult Blood 3+ H (Negative) Urine Nitrate Negative (Negative) Urine Bilirubin Negative (NEGATIVE) Urine Urobilinogen 0.2 (0.2) E.U./dL Ur Leukocyte Esterase Trace H (NEGATIVE) Urine RBC >100/hpf H (0-5/HPF) Urine WBC 10-30/hpf H (0-5/HPF) Ur Squamous Epith Cells 1-5 /hpf (0-5/HPF) Urine Bacteria Few (2-10) H (None) Ur Culture Indicated? Specimen cultured Urine Test Negative (Negative) 05/16/20 05/16/20 05/16/20 Range/Units 17:20 17:20 17:20 WBC (4.5-11.0) X10^3/uL RBC (4.0-5.2) X10^6/uL Hgb (12.0-16.0) g/dL Hct (36-46) % MCV (80-100) fL MCH (26-34) PG MCHC (30-36) % RDW (11.6-14.8) % Plt Count (150-400) X10^3/uL Neut % (Auto) (50-75) % Lymph % (Auto) (25-40) % [place] % (Auto) (3-14) % Eos % (Auto) (2-4) % Baso % (Auto) (0-2) % Neut # (Auto) (1601-0522) /uL Lymph # (Auto) (0652-8043) /uL [place] # (Auto) (0-900) /uL Eos # (Auto) (0-450) /uL Baso # (Auto) (0-100) /uL PT 10.7 (10.1-12.7) SECONDS INR 0.9 (0.9-1.3) APTT 37 H D (26.4-36.2) SECONDS Sodium 139 (137-145) mmol/L Potassium 4.9 (3.4-5.1) mmol/L Chloride 104 (98-107) mmol/L Carbon Dioxide 26 (22-32) mmol/L BUN 13 (7-17) mg/dL Creatinine 0.49 L (0.52-1.04) mg/dL Estimated GFR > 60.0 (>60) mL/min BUN/Creatinine Ratio 26.5 H (6-22) Glucose 111 H (70-100) mg/dL Lactate (0.7-2.1) mmol/L Calcium 9.4 (8.4-10.2) mg/dL Total Bilirubin 0.5 (0.2-1.3) mg/dL AST 61 H (14-36) IU/L ALT 73 H (<35) IU/L Alkaline Phosphatase 151 H (38-126) U/L Total Protein 8.7 H (6.3-8.2) g/dL Albumin 4.5 (3.5-5.0) g/dL Globulin 4.2 H (1.7-4.1) g/dL Albumin/Globulin Ratio 1.1 (1.0-2.8) Lipase 90 (23-300) U/L Procalcitonin < 0.05 (<0.5) ng/mL Urine Color Urine Appearance Urine pH (4.5-8.0) Ur Specific [place] (1.000-1.035) Urine Protein (Negative) Urine Glucose (UA) (Negative) g/dL Urine Ketones (NEGATIVE) Urine Occult Blood (Negative) Urine Nitrate (Negative) Urine Bilirubin (NEGATIVE) Urine Urobilinogen (0.2) E.U./dL Ur Leukocyte Esterase (NEGATIVE) Urine RBC (0-5/HPF) Urine WBC (0-5/HPF) Ur Squamous Epith Cells (0-5/HPF) Urine Bacteria (None) Ur Culture Indicated? Urine Test (Negative) 05/16/20 Range/Units 17:20 WBC (4.5-11.0) X10^3/uL RBC (4.0-5.2) X10^6/uL Hgb (12.0-16.0) g/dL Hct (36-46) % MCV (80-100) fL MCH (26-34) PG MCHC (30-36) % RDW (11.6-14.8) % Plt Count (150-400) X10^3/uL Neut % (Auto) (50-75) % Lymph % (Auto) (25-40) % [place] % (Auto) (3-14) % Eos % (Auto) (2-4) % Baso % (Auto) (0-2) % Neut # (Auto) (3822-3578) /uL Lymph # (Auto) (7166-9194) /uL [place] # (Auto) (0-900) /uL Eos # (Auto) (0-450) /uL Baso # (Auto) (0-100) /uL PT (10.1-12.7) SECONDS INR (0.9-1.3) APTT (26.4-36.2) SECONDS Sodium (137-145) mmol/L Potassium (3.4-5.1) mmol/L Chloride (98-107) mmol/L Carbon Dioxide (22-32) mmol/L BUN (7-17) mg/dL Creatinine (0.52-1.04) mg/dL Estimated GFR (>60) mL/min BUN/Creatinine Ratio (6-22) Glucose (70-100) mg/dL Lactate 1.6 (0.7-2.1) mmol/L Calcium (8.4-10.2) mg/dL Total Bilirubin (0.2-1.3) mg/dL AST (14-36) IU/L ALT (<35) IU/L Alkaline Phosphatase (38-126) U/L Total Protein (6.3-8.2) g/dL Albumin (3.5-5.0) g/dL Globulin (1.7-4.1) g/dL Albumin/Globulin Ratio (1.0-2.8) Lipase (23-300) U/L Procalcitonin (<0.5) ng/mL Urine Color Urine Appearance Urine pH (4.5-8.0) Ur Specific [place] (1.000-1.035) Urine Protein (Negative) Urine Glucose (UA) (Negative) g/dL Urine Ketones (NEGATIVE) Urine Occult Blood (Negative) Urine Nitrate (Negative) Urine Bilirubin (NEGATIVE) Urine Urobilinogen (0.2) E.U./dL Ur Leukocyte Esterase (NEGATIVE) Urine RBC (0-5/HPF) Urine WBC (0-5/HPF) Ur Squamous Epith Cells (0-5/HPF) Urine Bacteria (None) Ur Culture Indicated? Urine Test (Negative) Discharge Plan Departure Patient Disposition: Home Clinical Impression: Cystitis Discharge Date/Time: 05/16/20 19:39 Instructions: DI for Acute Cystitis Activity Restrictions/Additional Instructions: You have been diagnosed with [cystitis possibly early kidney infection. Lab tests are assuring. Your urine cultures pending. You have received IV fluid and 1st dose of IV medication Rocephin before discharged to home. Please continue to take antibiotic medication for next 7 days.]. What to do: *Take your medications as directed. Keflex 500 mg 4 times a day for next 7 days. Hydrate well. You can take [id number] Tylenol and or Motrin as needed for discomfort. This medication has been transmitted to [facility] in [place]. *Follow up with your primary care provider in 2-3 days, call for an appointment. Let them know you were seen in the ED and that we asked you to be seen in follow up. *Return to ED if you have any new, worsening, or concerning symptoms, such as [worsening pain, unable to tolerate fluids, near fainting, chest pain, breathing difficulty, high fever or any acute concerns]. Prescriptions: New cephalexin [Keflex] 500 mg capsule 500 mg PO Q6H 7 Days Qty: 28 RF: 0 No Action metformin 500 mg tablet 500 mg PO BID Qty: 180 RF: 1 omeprazole 20 mg capsule,delayed release(DR/EC) 20 mg PO BID Qty: 60 RF: 0 Referrals: Faustino Little ARNP [Primary Care Provider] - <Ashley Farfan DO - Last Filed: 05/21/20 07:37> Cosign ED Attending Pa Attestation: I was immediately available in the department for consultation. Documentation has been reviewed. I agree with assessment and plan.
[2020-05-16] MEDS: CEFTRIAXONE 1 GM/50 ML FROZ.PIGGY IV (18:57)
[2020-05-16 19:00] VITALS: BP 156/98; PULSE 99; RESP 14; O2SAT 98
[2020-05-16 19:39] VITALS: BP 139/76; PULSE 97; RESP 14; O2SAT 99
== END 2020-05-16 19:39 | disposition home or self-care (01) ==
PROVIDERS: Emergency Provider Nurse Practitioner Family; PCP Registered Nurse Diabetes Educator
DX: N30.91 Cystitis, unspecified with hematuria (principal); R00.0 Tachycardia, unspecified
CPT/HCPCS: 36415; 80053; 81001; 81025; 83605; 83690; 84145; 85025; 85610; 85730; 87040; 87077; 87086; 87186; 93005; 96361; 96365; 99284

== ENCOUNTER 2020-07-08 18:53 | Emergency (ER) | payer OTHER, SELFPAY ==
[2020-07-08] VITALS (10 sets, daily range): BP systolic 122–134; BP diastolic 73–83; PULSE 83–107; RESP 16–26; TEMP 36.7; O2SAT 96–99; BMI 54.8
--- NOTE | 2020-07-08 20:03 | ED_ITS ---
HPI - Fever General Chief Complaint: Fever Stated Complaint: cough, fever, not feeling great Time Seen by Provider: 07/08/20 19:54 Source: patient Mode of arrival: Ambulatory Limitations: no limitations History of Present Illness HPI Narrative: 30-year-old female nonsmoker with history of diabetes, GERD and cystitis presents with her significant other and a chief complaint of a few days of fever, body ache, some cough and shortness of breath as well as some generalized abdominal pain. She denies exposure to persons known to be positive for COVID. She denies recent travel. She denies runny nose, sore throat. She denies any chest pain. MD complaint: fever Onset (ago): day(s) Temperature Source: subjective Associated symptoms: chills, myalgias, rhinorrhea, cough and abdominal pain Relieving factors: nothing Exacerbating factors: nothing Treatments prior to arrival fever: none Related Data Previous Rx's Medication Instructions Recorded omeprazole 20 mg capsule,delayed 20 mg PO BID #60 cap 02/08/20 release metformin 500 mg tablet 500 mg PO BID #180 tab 04/18/20 Allergies Allergy/AdvReac Type Severity Reaction Status Date / Time No Known Drug Allergies Allergy Verified 07/08/20 19:51 Review of Systems Constitutional Constitutional: Reports chills, Reports fatigue, Reports fever(s), Denies frequent falls, Denies lethargy and Denies weakness Eyes Eyes: Denies change in vision, Denies eye discharge, Denies irritation and Denies loss of vision ENT Ears, Nose, Mouth, and Throat: Denies change in voice, Denies dizziness, Denies neck pain, Reports sore throat and Denies throat swelling Cardiovascular Cardiovascular: Denies chest pain, Denies irregular heart rhythm, Denies lightheadedness, Denies palpitations, Reports dyspnea, Denies dyspnea on exertion and Denies orthopnea Respiratory Respiratory: Reports cough, Reports dyspnea, Denies dyspnea on exertion and Denies wheezing Gastrointestinal Gastrointestinal: Reports abdominal pain, Denies change in bowel habits, Denies diarrhea, Reports nausea and Denies vomiting Musculoskeletal Musculoskeletal: Denies neck pain and Denies numbness Integumentary/Breasts Skin/Breast: Denies pruritus, Denies erythema, Denies rash and Denies wounds Neurologic Neurologic: Denies behavioral changes, Denies confusion, Denies dizziness, Denies frequent falls, Denies loss of vision, Denies numbness and Denies weakness Psychiatric Psychiatric: Denies anxiety, Denies behavioral changes, Denies confusion, Denies depression, Denies homicidal ideation and Denies suicidal ideation Endocrine Endocrine: Reports fatigue, Denies flushing and Denies palpitations Hematologic/Lymphatic Hematologic/Lymphatic: Denies easy bruising Allergic/Immunologic Allergic/Immunologic: Denies urticaria, Denies throat swelling and Denies wheezing Patient History Medical History Anxiety Atypical chest pain Dyspepsia Eczema of both hands Elevated platelet count Fatigue GERD (gastroesophageal reflux disease) Impaired fasting glucose Migraine BRAY (nonalcoholic steatohepatitis) Non-alcoholic fatty liver disease Obesity Panic disorder (04/23/17) Pre-diabetes Family History Father Anxiety Mother Depression with anxiety Social History Smoking Status: Former smoker Smoking Status: Former smoker alcohol intake frequency: 0-2 drinks per day Alcohol type: beer, wine and hard liquor Substance Use Type: does not use Exam Narrative Exam Narrative: GENERAL 30 year old patient appears stated age. Well-nourished, well-developed patient, in mild distress. HEAD: Atraumatic. Normocephalic. EYES: Pupils equal round and reactive. Extraocular motions intact. No scleral icterus. No injection or drainage. ENT: Nose without bleeding, purulent drainage. Throat without erythema, tonsillar hypertrophy or exudate. Airway patent. NECK: Trachea midline. Non tender CARDIOVASCULAR: Regular rate and rhythm without murmurs, gallops, or rubs. RESPIRATORY: Clear to auscultation. Breath sounds equal bilaterally. No wheezes, rales, or rhonchi. GASTROINTESTINAL: Abdomen soft, non-tender, nondistended. EXTREMITIES: No edema or joint tenderness. BACK: Nontender without deformity or crepitance. No flank tenderness. NEURO: AOx3. SKIN: No rash or erythema of visible areas Initial Vital Signs Initial Vital Signs: Vital Signs Pulse Rate 107 H 07/08/20 19:47 Blood Pressure 134/75 07/08/20 19:47 Pulse Oximetry 99 07/08/20 19:47 Course Orders Ordered: ED Orders 07/08/20 21:39 XR acute abdomen series Stat 07/08/20 22:00 Basic Metabolic Panel Stat Complete Blood Count AUTO DIFF Stat Discontinued Medications Lactated Ringer's (Lactated Ringers) 1,000 mls @ 1,000 mls/hr IV BOLUS ONE Stop: 07/08/20 22:37 Last Infusion: 07/08/20 23:48 Dose: 0 mls/hr Documented by: Admin: 07/08/20 22:30 Dose: 1,000 mls/hr Documented by: FRANCES Vital Signs Vital signs: Vital Signs - 8 hr 07/08/20 22:31 07/08/20 23:00 07/08/20 23:30 Pulse Rate 87 90 83 Blood Pressure 122/76 Pulse Oximetry 97 96 96 MDM - Fever Lab Data Result diagrams: 07/08/20 22:00 07/08/20 22:00 Labs: Lab Results 07/08/20 07/08/20 07/08/20 Range/Units 19:45 22:00 22:00 WBC 12.2 H (4.5-11.0) X10^3/uL RBC 4.55 (4.0-5.2) X10^6/uL Hgb 12.5 (12.0-16.0) g/dL Hct 38.0 (36-46) % MCV 83.5 (80-100) fL MCH 27.4 (26-34) PG MCHC 32.8 (30-36) % RDW 13.8 (11.6-14.8) % Plt Count 451 H (150-400) X10^3/uL Neut % (Auto) 55.3 (50-75) % Lymph % (Auto) 34.0 (25-40) % Bulloch % (Auto) 6.6 (3-14) % Eos % (Auto) 3.2 (2-4) % Baso % (Auto) 0.9 (0-2) % Neut # (Auto) 6700 (9160-3323) /uL Lymph # (Auto) 4100 (1862-5274) /uL Bulloch # (Auto) 800 (0-900) /uL Eos # (Auto) 400 (0-450) /uL Baso # (Auto) 100 (0-100) /uL Sodium 137 (137-145) mmol/L Potassium 4.0 (3.4-5.1) mmol/L Chloride 107 (98-107) mmol/L Carbon Dioxide 26 (22-32) mmol/L BUN 17 (7-17) mg/dL Creatinine 0.44 L (0.52-1.04) mg/dL Estimated GFR > 60.0 (>60) mL/min BUN/Creatinine Ratio 38.6 H (6-22) Glucose 105 H (70-100) mg/dL Calcium 9.0 (8.4-10.2) mg/dL COVID-19 PCR Negative (Negative) Urine Dip Bedside Urine Glucose Negative Bedside Urine Bilirubin - Negative Bedside Urine Ketone - Negative Urine Specific Leslie 1.020 Bedside Urine Occult Blood - Negative Bedside Urine pH 6.5 Bedside Urine Protein - Negative Bedside Urine Urobilinogen - Negative Bedside Urine Nitrite - Negative Bedside Urine Leukocytes - Negative Esterase Imaging Data Chest x-ray: My Impression: No acute process MDM Narrative Medical decision making narrative: Multiple etiologies for patient's symptoms considered including: [COVID versus viral syndrome versus other] Patient's symptoms improved over duration of stay with above-stated therapies. Findings and discharge diagnosis discussed with patient/family followed by verbalization of understanding Return precautions discussed with patient/family whom verbalize understanding. Discharge Plan Departure Patient Disposition: Home Clinical Impression: Viral URI with cough Instructions: DI for Viral Upper Respiratory Infection -- Adult Activity Restrictions/Additional Instructions: *You have been diagnosed with [acute viral upper respiratory infection. Your physical exam, chest x-ray and lab work are very reassuring. COVID was negative] *What to do: *Take medications as directed *Follow up with your primary care provider in 2-3 days, call for an appoint ment. Let them know you were seen in the Emergency Department and that we ask that you be seen in follow up *Return to ER if you should have any new, worsening or concerning symptoms, such as [ ] Prescriptions: No Action metformin 500 mg tablet 500 mg PO BID Qty: 180 RF: 1 omeprazole 20 mg capsule,delayed release(DR/EC) 20 mg PO BID Qty: 60 RF: 0 Referrals: Faustino Little ARNP [Primary Care Provider] -
[2020-07-08 20:17] LABS: COVID19 -Nasal RAPID Negative (Negative)
--- NOTE | 2020-07-08 21:39 | DI.RAD.S_ITS ---
PROCEDURE: XR ACUTE ABDOMEN SERIES INDICATIONS: Abdominal pain, cough TECHNIQUE: One view chest and two views of the abdomen were acquired. COMPARISON: [facility], CT, CT KIDNEY URETER BLADDER (KUB), 01/22/2020, 8:36. FINDINGS: Surgical changes and devices: None. Chest: Lungs are clear. Heart size is normal. No pleural effusions. No pneumoperitoneum. Abdomen: Bowel gas pattern is normal. No suspicious calcifications. Visualized solid organ contours appear normal. Bones: No suspicious bony lesions. IMPRESSION: A nonobstructive bowel gas pattern is seen. If clinically appropriate, please consider a repeat plain film study or a dedicated CT of the abdomen and pelvis, if the patient's symptoms persist or worsen. No nga pulmonary abnormality is seen. Note: No significant discrepancy from the preliminary report. Dictated by: Alonzo Villarreal M.D. on 07/09/2020 at 7:33 Approved by: Alonzo Villarreal M.D. on 07/09/2020 at 7:34
[2020-07-08 22:04] LABS: Add Manual Diff / Slide Review NO; Basophils Absolute Auto 100 /uL (0-100); Basophils Percent Auto 0.9 % (0-2); Eosinophils Absolute Auto 400 /uL (0-450); Eosinophils Percent Auto 3.2 % (2-4); Hemoglobin 12.5 g/dL (12.0-16.0); Lymphocytes Absolute Auto 4100 /uL (1100-4500); Mean Corpuscular HGB Conc 32.8 % (30-36); Mean Corpuscular Hemoglobin 27.4 PG (26-34); Mean Corpuscular Volume 83.5 fL (80-100); Monocytes Absolute Auto 800 /uL (0-900); Monocytes Percent Auto 6.6 % (3-14); Neutrophils Absolute Auto 6700 /uL (1500-7000); Neutrophils Percent Auto 55.3 % (50-75); Platelet Count 451 X10^3/uL (150-400); Red Blood Cell Count 4.55 X10^6/uL (4.0-5.2); Red Cell Distribution Width 13.8 % (11.6-14.8); White Blood Cell Count 12.2 X10^3/uL (4.5-11.0)
[2020-07-08 22:16] LABS: BUN Creatinine Ratio 38.6 (6-22); Blood Urea Nitrogen 17 mg/dL (7-17); Carbon Dioxide 26 mmol/L (22-32); Chloride 107 mmol/L (98-107); Estimated Glomerular Filt Rate > 60.0 mL/min (>60); Glucose 105 mg/dL (70-100); HEMOLYSIS < 15 (0-50); Sodium 137 mmol/L (137-145)
[2020-07-08] MEDS: LACTATED RINGERS 1,000 ML 1000 ML IV (22:30)
== END 2020-07-08 23:49 | disposition home or self-care (01) ==
PROVIDERS: Emergency Provider Emergency Medicine; PCP Registered Nurse Diabetes Educator
DX: J06.9 Acute upper respiratory infection, unspecified (principal); R05 Cough; R06.02 Shortness of breath; R10.84 Generalized abdominal pain; R50.9 Fever, unspecified
CPT/HCPCS: 36415; 74022; 80048; 81003; 85025; 87635; 96360; 99283; 99284

== ENCOUNTER 2020-11-09 12:28 | Emergency (ER) | payer SELFPAY ==
[2020-11-09 12:36] VITALS: BP 161/80; PULSE 101; RESP 28; TEMP 36.6; O2SAT 97; BMI 56.7
--- NOTE | 2020-11-09 12:42 | DI.RAD.S_ITS ---
PROCEDURE: XR CHEST 2V INDICATIONS: left sided chest pain, SOB TECHNIQUE: 2 views of the chest were acquired. COMPARISON: [facility], , XR CHEST 1V, 05/31/2019, 23:12. [facility], CR, CHEST 2 VIEW, 05/21/2012, 13:05. FINDINGS: Surgical changes and devices: None. Lungs and pleura: Lungs are clear. No pleural effusions or pneumothorax. Mediastinum: Mediastinal contours are normal. Heart size is normal. Bones and chest wall: No suspicious bony abnormalities. Soft tissues appear unremarkable. IMPRESSION: Quality of visualization reduced by body habitus, no definite acute disease. Dictated by: Eliceo Harmon M.D. on 11/09/2020 at 13:09 Approved by: Eliceo Harmon M.D. on 11/09/2020 at 13:09
--- NOTE | 2020-11-09 13:28 | ED_ITS ---
HPI - SOB/Dyspnea <HARDY Dorantes - Last Filed: 11/09/20 17:19> General Chief Complaint: Shortness of Breath/Dyspnea Stated Complaint: sob/upper left chest discomfort/cough x2 days Time Seen by Provider: 11/09/20 12:45 Source: patient Mode of arrival: Ambulatory Limitations: no limitations History of Present Illness HPI Narrative: The patient is a 30-year-old female former smoker with history of prediabetes, as well as viral upper respiratory infection who presents with a chief complaint of left-sided chest pain, productive cough and low-grade fevers for the past several days. She presents with her she states she has history pediatric asthma, but no other respiratory or along issues. She states that the chest pain is in her left side and only happens with deep breathing. Temperature maximum was 101. Denies any nausea vomiting diarrhea or abdominal pain. Does complain of muscle aches and chills. No specific coronavirus exposures. 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 Denies any recent hospitalizations or episodes of immobility. Related Data Previous Rx's Medication Instructions Recorded omeprazole 20 mg capsule,delayed 20 mg PO BID #60 cap 02/08/20 release metformin 500 mg tablet 500 mg PO BID #180 tab 04/18/20 Allergies Allergy/AdvReac Type Severity Reaction Status Date / Time No Known Drug Allergies Allergy Verified 11/09/20 12:41 Review of Systems <HARDY Dorantes - Last Filed: 11/09/20 17:19> Review of Systems Narrative: GENERAL: See HPI HEENT: Denies sinus pain, ear pain, sore throat, difficulty swallowing, dizziness. RESPIRATORY: See HPI CARDIOVASCULAR: See HPI GASTROINTESTINAL: Denies nausea, vomiting, abdominal pain, diarrhea, constipation, melena. : Denies dysuria, frequency, incontinence, hematuria, urinary retention. MUSCULOSKELETAL: denies weakness, joint pain, or bony pain SKIN: Denies rash, skin lesions, or other NEUROLOGIC: Denies weakness, headache, numbness, change in speech, confusion, seizures, incoordination. PSYCHIATRIC: No concerning psychosocial issues. 12 point review of systems is negative except for those stated above Patient History <HARDY Dorantes - Last Filed: 11/09/20 17:19> Medical History (Updated 11/09/20 @ 15:35 by HARDY Dorantes) Anxiety Atypical chest pain Dyspepsia Eczema of both hands Elevated platelet count Fatigue GERD (gastroesophageal reflux disease) Impaired fasting glucose Migraine BRAY (nonalcoholic steatohepatitis) Non-alcoholic fatty liver disease Obesity Panic disorder (04/23/17) Pre-diabetes Family History Father Anxiety Mother Depression with anxiety Social History Smoking Status: Former smoker Smoking Status: Former smoker alcohol intake frequency: 0-2 drinks per day Alcohol type: beer, wine and hard liquor Substance Use Type: does not use Exam <HARDY Dorantes - Last Filed: 11/09/20 17:19> Narrative Exam Narrative: GENERAL: This is a well-nourished, well-developed patient, in no acute distress HEAD: Atraumatic. Normocephalic. No temporal or scalp tenderness. EYES: Pupils equal round and reactive. Extraocular motions intact. No scleral icterus. No injection or drainage. ENT: Nose without bleeding, purulent drainage or septal hematoma. Wearing a mask Airway patent. NECK: Trachea midline. No JVD or lymphadenopathy. Supple, nontender, no meningea l signs. CARDIOVASCULAR: Regular rate and rhythm. Pain to palpation of left anterior chest wall, costochondral joints RESPIRATORY: Decreased bilaterally to auscultation. Breath sounds equal bilaterally. No wheezes, rales, or rhonchi. Cough during exam. No increased respiratory effort. No accessory muscle use. GASTROINTESTINAL: Abdomen soft, non-tender, nondistended. No hepato- splenomegaly, or palpable masses. No guarding. EXTREMITIES: No clubbing, cyanosis, or edema. No joint tenderness, effusion, or edema noted. BACK: Nontender without deformity or crepitance. No flank tenderness. NEURO: AOx3. SKIN: No rash or erythema. Initial Vital Signs Initial Vital Signs: Vital Signs Temperature 97.8 F 11/09/20 12:36 Pulse Rate 101 H 11/09/20 12:36 Respiratory Rate 28 H 11/09/20 12:36 Blood Pressure 161/80 H 11/09/20 12:36 Pulse Oximetry 97 11/09/20 12:36 <Ale Trejo MD - Last Filed: 11/10/20 18:33> Initial Vital Signs Initial Vital Signs: Vital Signs Temperature 97.8 F 11/09/20 12:36 Pulse Rate 101 H 11/09/20 12:36 Respiratory Rate 28 H 11/09/20 12:36 Blood Pressure 161/80 H 11/09/20 12:36 Pulse Oximetry 97 11/09/20 12:36 Scores <HARDY Dorantes - Last Filed: 11/09/20 17:19> GCS Lenore coma scale eye opening: Spontaneous Lenore coma scale verbal response: Orientated Ministerio coma scale motor response: Obey commands Lenore coma scale total score: 15 PERC Score Age greater than or equal to 50 years: No Heart rate greater than or equal to 100 bpm: Yes Room Air O2 Sat less than 95%: No Unilateral leg swelling: No Recent trauma or surgery: No Hemoptysis: No Prior PE or DVT: No Hormone Use: No Total PERC Score: 1 Course <HARDY Dorantes - Last Filed: 11/09/20 17:19> Orders Ordered: Discontinued Medications Ketorolac Tromethamine (Ketorolac 60 Mg/2 Ml Vial) 60 mg IM NOW ONE Stop: 11/09/20 14:27 Last Admin: 11/09/20 14:46 Dose: 60 mg Documented by: FRANCES Vital Signs Vital signs: Vital Signs - 8 hr 11/09/20 12:36 11/09/20 14:20 11/09/20 14:25 Temperature 97.8 F Pulse Rate 101 H 80 84 Respiratory Rate 28 H 12 Blood Pressure 161/80 H 150/93 H Pulse Oximetry 97 97 98 11/09/20 14:30 11/09/20 15:00 Temperature Pulse Rate 83 74 Respiratory Rate Blood Pressure 123/82 Pulse Oximetry 96 97 <Ale Trejo MD - Last Filed: 11/10/20 18:33> Orders Ordered: Discontinued Medications Ketorolac Tromethamine (Ketorolac 60 Mg/2 Ml Vial) 60 mg IM NOW ONE Stop: 11/09/20 14:27 Last Admin: 11/09/20 14:46 Dose: 60 mg Documented by: FRANCES Vital Signs Vital signs: Vital Signs - 8 hr 11/09/20 12:36 11/09/20 14:20 11/09/20 14:25 Temperature 97.8 F Pulse Rate 101 H 80 84 Respiratory Rate 28 H 12 Blood Pressure 161/80 H 150/93 H Pulse Oximetry 97 97 98 11/09/20 14:30 11/09/20 15:00 Temperature Pulse Rate 83 74 Respiratory Rate Blood Pressure 123/82 Pulse Oximetry 96 97 MDM - SOB/Dyspnea <MIGUEL DorantesP-BC - Last Filed: 11/09/20 17:19> Lab Data Attestation: I reviewed the patient's lab results. Result diagrams: 11/09/20 13:20 11/09/20 13:20 Labs: Lab Results 11/09/20 11/09/20 11/09/20 Range/Units 13:16 13:20 13:20 WBC 9.0 (4.5-11.0) X10^3/uL RBC 4.53 (4.0-5.2) X10^6/uL Hgb 12.6 (12.0-16.0) g/dL Hct 37.4 (36-46) % MCV 82.5 (80-100) fL MCH 27.9 (26-34) PG MCHC 33.8 (30-36) % RDW 13.7 (11.6-14.8) % Plt Count 447 H (150-400) X10^3/uL Neut % (Auto) 51.7 (50-75) % Lymph % (Auto) 37.1 (25-40) % [place] % (Auto) 6.1 (3-14) % Eos % (Auto) 4.3 H (2-4) % Baso % (Auto) 0.8 (0-2) % Neut # (Auto) 4700 (5493-7244) /uL Lymph # (Auto) 3300 (6731-1979) /uL [place] # (Auto) 600 (0-900) /uL Eos # (Auto) 400 (0-450) /uL Baso # (Auto) 100 (0-100) /uL PT 11.1 (10.1-12.7) SECONDS INR 1.0 (0.9-1.3) APTT 36 (26.4-36.2) SECONDS D-Dimer < 200 (<230) ng/mL Sodium (137-145) mmol/L Potassium (3.4-5.1) mmol/L Chloride (98-107) mmol/L Carbon Dioxide (22-32) mmol/L BUN (7-17) mg/dL Creatinine (0.52-1.04) mg/dL Estimated GFR (>60) mL/min BUN/Creatinine Ratio (6-22) Glucose (70-100) mg/dL Calcium (8.4-10.2) mg/dL Magnesium (1.6-2.3) mg/dL Total Bilirubin (0.2-1.3) mg/dL AST (14-36) IU/L ALT (<35) IU/L Alkaline Phosphatase (38-126) U/L Total Creatine Kinase (30-135) U/L CK-MB (CK-2) CK-MB (CK-2) Rel Index Troponin I (0.01-0.034) ng/mL Total Protein (6.3-8.2) g/dL Albumin (3.5-5.0) g/dL Globulin (1.7-4.1) g/dL Albumin/Globulin Ratio (1.0-2.8) SARS-CoV-2 (PCR) Negative (Negative) 11/09/20 Range/Units 13:20 WBC (4.5-11.0) X10^3/uL RBC (4.0-5.2) X10^6/uL Hgb (12.0-16.0) g/dL Hct (36-46) % MCV (80-100) fL MCH (26-34) PG MCHC (30-36) % RDW (11.6-14.8) % Plt Count (150-400) X10^3/uL Neut % (Auto) (50-75) % Lymph % (Auto) (25-40) % [place] % (Auto) (3-14) % Eos % (Auto) (2-4) % Baso % (Auto) (0-2) % Neut # (Auto) (1829-8730) /uL Lymph # (Auto) (3882-5921) /uL [place] # (Auto) (0-900) /uL Eos # (Auto) (0-450) /uL Baso # (Auto) (0-100) /uL PT (10.1-12.7) SECONDS INR (0.9-1.3) APTT (26.4-36.2) SECONDS D-Dimer (<230) ng/mL Sodium 138 (137-145) mmol/L Potassium 3.9 (3.4-5.1) mmol/L Chloride 103 (98-107) mmol/L Carbon Dioxide 29 (22-32) mmol/L BUN 9 (7-17) mg/dL Creatinine 0.46 L (0.52-1.04) mg/dL Estimated GFR > 60.0 (>60) mL/min BUN/Creatinine Ratio 19.6 (6-22) Glucose 133 H (70-100) mg/dL Calcium 9.4 (8.4-10.2) mg/dL Magnesium 1.8 (1.6-2.3) mg/dL Total Bilirubin 0.2 (0.2-1.3) mg/dL AST 44 H (14-36) IU/L ALT 67 H (<35) IU/L Alkaline Phosphatase 115 (38-126) U/L Total Creatine Kinase 38 (30-135) U/L CK-MB (CK-2) TNP CK-MB (CK-2) Rel Index TNP Troponin I < 0.012 (0.01-0.034) ng/mL Total Protein 7.5 (6.3-8.2) g/dL Albumin 3.9 (3.5-5.0) g/dL Globulin 3.6 (1.7-4.1) g/dL Albumin/Globulin Ratio 1.1 (1.0-2.8) SARS-CoV-2 (PCR) (Negative) Imaging Data Chest x-ray: Radiologist's Impression: [address] [place] [id number] ReportSigned Patient: Ofelia Church LMR#: [id number]: [id number]:[id number]/Sex: 30 / FDate of Service: 11/09/20Loc: EDAccession Number: [id number] Procedure: XR chest 2V Ordering Provider: Ale Trejo MD PROCEDURE: XR CHEST 2V INDICATIONS: left sided chest pain, SOB TECHNIQUE: 2 views of the chest were acquired. COMPARISON: [facility], CR, XR CHEST 1V, 05/31/2019, 23:12. [facility], CR, CHEST 2 VIEW, 05/21/2012, 13:05. FINDINGS: Surgical changes and devices: None. Lungs and pleura: Lungs are clear. No pleural effusions or pneumothorax. Mediastinum: Mediastinal contours are normal. Heart size is normal. Bones and chest wall: No suspicious bony abnormalities. Soft tissues appear unremarkable. IMPRESSION: Quality of visualization reduced by body habitus, no definite acute disease. Dictated by: Eliceo Harmon M.D. on 11/09/2020 at 13:09 Approved by: Eliceo Harmon M.D. on 11/09/2020 at 13:09 [facility] Narrative Medical decision making narrative: The patient is a 30-year-old female who presents with a chief complaint of left-sided chest pain with cough as well as low-grade fevers. She tests negative for COVID, lab work is reassuring with no leukocytosis, no elevation of D-dimer. Troponin is negative, not repeated given several day duration of symptoms. EKG has no acute findings. The patient feels improved after ketorolac, but declines any prescriptions stating that she does not ?like to take medication. I discussed at length that pain to palpation of costochondral joints could indicate costochondritis and NSAIDs would be the preferred treatment. However she declines this prescription. I discussed at length the a negative COVID test does not necessarily rule out coronavirus at this point time given early-onset symptoms. Encouraged follow-up with primary care provider, self quarantine while she is symptomatic in any way and coming back to the ER for acute concerns. Patient has no questions or concerns upon discharge states understanding of return precautions as well as follow-up care. <Ale Trejo MD - Last Filed: 11/10/20 18:33> Lab Data Labs: Lab Results 11/09/20 11/09/20 11/09/20 Range/Units 13:16 13:20 13:20 WBC 9.0 (4.5-11.0) X10^3/uL RBC 4.53 (4.0-5.2) X10^6/uL Hgb 12.6 (12.0-16.0) g/dL Hct 37.4 (36-46) % MCV 82.5 (80-100) fL MCH 27.9 (26-34) PG MCHC 33.8 (30-36) % RDW 13.7 (11.6-14.8) % Plt Count 447 H (150-400) X10^3/uL Neut % (Auto) 51.7 (50-75) % Lymph % (Auto) 37.1 (25-40) % [place] % (Auto) 6.1 (3-14) % Eos % (Auto) 4.3 H (2-4) % Baso % (Auto) 0.8 (0-2) % Neut # (Auto) 4700 (9369-5744) /uL Lymph # (Auto) 3300 (3969-7205) /uL [place] # (Auto) 600 (0-900) /uL Eos # (Auto) 400 (0-450) /uL Baso # (Auto) 100 (0-100) /uL PT 11.1 (10.1-12.7) SECONDS INR 1.0 (0.9-1.3) APTT 36 (26.4-36.2) SECONDS D-Dimer < 200 (<230) ng/mL Sodium (137-145) mmol/L Potassium (3.4-5.1) mmol/L Chloride (98-107) mmol/L Carbon Dioxide (22-32) mmol/L BUN (7-17) mg/dL Creatinine (0.52-1.04) mg/dL Estimated GFR (>60) mL/min BUN/Creatinine Ratio (6-22) Glucose (70-100) mg/dL Calcium (8.4-10.2) mg/dL Magnesium (1.6-2.3) mg/dL Total Bilirubin (0.2-1.3) mg/dL AST (14-36) IU/L ALT (<35) IU/L Alkaline Phosphatase (38-126) U/L Total Creatine Kinase (30-135) U/L CK-MB (CK-2) CK-MB (CK-2) Rel Index Troponin I (0.01-0.034) ng/mL Total Protein (6.3-8.2) g/dL Albumin (3.5-5.0) g/dL Globulin (1.7-4.1) g/dL Albumin/Globulin Ratio (1.0-2.8) SARS-CoV-2 (PCR) Negative (Negative) 11/09/20 Range/Units 13:20 WBC (4.5-11.0) X10^3/uL RBC (4.0-5.2) X10^6/uL Hgb (12.0-16.0) g/dL Hct (36-46) % MCV (80-100) fL MCH (26-34) PG MCHC (30-36) % RDW (11.6-14.8) % Plt Count (150-400) X10^3/uL Neut % (Auto) (50-75) % Lymph % (Auto) (25-40) % [place] % (Auto) (3-14) % Eos % (Auto) (2-4) % Baso % (Auto) (0-2) % Neut # (Auto) (3944-4032) /uL Lymph # (Auto) (5321-9579) /uL [place] # (Auto) (0-900) /uL Eos # (Auto) (0-450) /uL Baso # (Auto) (0-100) /uL PT (10.1-12.7) SECONDS INR (0.9-1.3) APTT (26.4-36.2) SECONDS D-Dimer (<230) ng/mL Sodium 138 (137-145) mmol/L Potassium 3.9 (3.4-5.1) mmol/L Chloride 103 (98-107) mmol/L Carbon Dioxide 29 (22-32) mmol/L BUN 9 (7-17) mg/dL Creatinine 0.46 L (0.52-1.04) mg/dL Estimated GFR > 60.0 (>60) mL/min BUN/Creatinine Ratio 19.6 (6-22) Glucose 133 H (70-100) mg/dL Calcium 9.4 (8.4-10.2) mg/dL Magnesium 1.8 (1.6-2.3) mg/dL Total Bilirubin 0.2 (0.2-1.3) mg/dL AST 44 H (14-36) IU/L ALT 67 H (<35) IU/L Alkaline Phosphatase 115 (38-126) U/L Total Creatine Kinase 38 (30-135) U/L CK-MB (CK-2) TNP CK-MB (CK-2) Rel Index TNP Troponin I < 0.012 (0.01-0.034) ng/mL Total Protein 7.5 (6.3-8.2) g/dL Albumin 3.9 (3.5-5.0) g/dL Globulin 3.6 (1.7-4.1) g/dL Albumin/Globulin Ratio 1.1 (1.0-2.8) SARS-CoV-2 (PCR) (Negative) Discharge Plan Departure Patient Disposition: Home Clinical Impression: Chest pain, atypical, Acute costochondritis, Acute viral syndrome Instructions: DI for Atypical Chest Pain, DI for Costochondritis, DI for Viral Syndrome Activity Restrictions/Additional Instructions: Thank you for trusting us with your care today. Follow-up with primary care provider in the next few days. Please come back to the emergency department for any acute concerns. As discussed, your chest x-ray resulted negative, blood work resulted very well, and your COVID test resulted negative As discussed, testing negative for COVID does not necessarily mean that you do not have COVID. Please stay home if you have any symptoms such as cough shor tness of breath or low-grade fevers. Please wash your hands and cover your cough. Prescriptions: No Action metformin 500 mg tablet 500 mg PO BID Qty: 180 RF: 1 omeprazole 20 mg capsule,delayed release(DR/EC) 20 mg PO BID Qty: 60 RF: 0 Referrals: Faustino Little ARNP [Primary Care Provider] - <Ale Trejo MD - Last Filed: 11/10/20 18:33> Cosign ED Attending Cossidature Attestation: I was immediately available in the department for consultation throughout this patient's visit. I agree with documentation as above. Ale Trejo MD
[2020-11-09 13:41] LABS: Add Manual Diff / Slide Review NO; Basophils Absolute Auto 100 /uL (0-100); Basophils Percent Auto 0.8 % (0-2); Eosinophils Absolute Auto 400 /uL (0-450); Eosinophils Percent Auto 4.3 % (2-4); Hematocrit 37.4 % (36-46); Hemoglobin 12.6 g/dL (12.0-16.0); Lymphocytes Absolute Auto 3300 /uL (1100-4500); Lymphocytes Percent Auto 37.1 % (25-40); Mean Corpuscular HGB Conc 33.8 % (30-36); Mean Corpuscular Hemoglobin 27.9 PG (26-34); Mean Corpuscular Volume 82.5 fL (80-100); Monocytes Absolute Auto 600 /uL (0-900); Monocytes Percent Auto 6.1 % (3-14); Neutrophils Absolute Auto 4700 /uL (1500-7000); Neutrophils Percent Auto 51.7 % (50-75); Platelet Count 447 X10^3/uL (150-400); Red Blood Cell Count 4.53 X10^6/uL (4.0-5.2); Red Cell Distribution Width 13.7 % (11.6-14.8)
[2020-11-09 13:44] LABS: COVID19 -Nasal RAPID Negative (Negative)
[2020-11-09 13:47] LABS: Alanine Aminotransferase 67 IU/L (<35); Albumin 3.9 g/dL (3.5-5.0); Albumin Globulin Ratio 1.1 (1.0-2.8); Alkaline Phosphatase 115 U/L (38-126); Aspartate Aminotransferase 44 IU/L (14-36); BUN Creatinine Ratio 19.6 (6-22); Bilirubin Total 0.2 mg/dL (0.2-1.3); Blood Urea Nitrogen 9 mg/dL (7-17); Calcium 9.4 mg/dL (8.4-10.2); Carbon Dioxide 29 mmol/L (22-32); Chloride 103 mmol/L (98-107); Creatine Kinase 38 U/L (30-135); Estimated Glomerular Filt Rate > 60.0 mL/min (>60); Globulin 3.6 g/dL (1.7-4.1); Glucose 133 mg/dL (70-100); HEMOLYSIS < 15 (0-50); Magnesium 1.8 mg/dL (1.6-2.3); Potassium 3.9 mmol/L (3.4-5.1); Sodium 138 mmol/L (137-145); Total Protein 7.5 g/dL (6.3-8.2)
[2020-11-09 13:58] LABS: Troponin I < 0.012 ng/mL (0.01-0.034)
[2020-11-09 14:11] LABS: Prothrombin Time 11.1 SECONDS (10.1-12.7)
[2020-11-09 14:13] LABS: PTT Partial Thromboplastin Tim 36 SECONDS (26.4-36.2)
[2020-11-09 14:14] LABS: D Dimer < 200 ng/mL (<230)
[2020-11-09 14:20] VITALS: PULSE 80; RESP 12; O2SAT 97
[2020-11-09 14:25] VITALS: BP 150/93; PULSE 84; O2SAT 98
[2020-11-09 14:30] VITALS: PULSE 83; O2SAT 96
[2020-11-09] MEDS: KETOROLAC 60 MG/2 ML VIAL IM (14:46)
[2020-11-09 15:00] VITALS: BP 123/82; PULSE 74; O2SAT 97
== END 2020-11-09 15:41 | disposition home or self-care (01) ==
PROVIDERS: Emergency Provider Nurse Practitioner Family; PCP Registered Nurse Diabetes Educator
DX: B34.9 Viral infection, unspecified (principal); R07.89 Other chest pain; Z20.822 Contact with and (suspected) exposure to COVID-19; M94.0 Chondrocostal junction syndrome [Tietze]
CPT/HCPCS: 36415; 71046; 80053; 82550; 83735; 84484; 85025; 85379; 85610; 85730; 87635; 93005; 93010; 96372; 99283; 99284; C9803; J1885

== ENCOUNTER 2021-04-12 09:35 | Emergency (ER) | payer OTHER, SELFPAY ==
[2021-04-12 09:41] VITALS: BP 139/91; PULSE 89; RESP 14; TEMP 36.9; O2SAT 99; BMI 60.4
--- NOTE | 2021-04-12 09:51 | DI.RAD.S_ITS ---
PROCEDURE: XR CHEST 1V INDICATIONS: cough TECHNIQUE: One view of the chest was acquired. COMPARISON: [facility], CR, XR CHEST 2V, 11/09/2020, 12:46. FINDINGS: Suboptimal secondary to body habitus. Surgical changes and devices: None. Lungs and pleura: No pleural effusions or pneumothorax. Low lung volumes. Bibasilar and retrocardiac streaky opacities Mediastinum: Mediastinal contours appear normal. Heart size is normal. Bones and chest wall: No suspicious bony lesions. Overlying soft tissues appear unremarkable. IMPRESSION: Low lung volumes and presumed scattered atelectasis. No definite focal consolidation. If there is persistent clinical diagnostic uncertainty, continued surveillance with short interval radiographic followup after treatment is recommended. Dictated by: Uvaldo Gómez M.D. on 04/12/2021 at 10:40 Approved by: Uvaldo Gómez M.D. on 04/12/2021 at 10:41
--- NOTE | 2021-04-12 09:51 | ED.GENADULT ---
HPI - General Adult General Chief complaint: Upper Respiratory Symptoms Stated complaint: sob/coughing/nausea/headache/fatigue Time Seen by Provider: 04/12/21 09:46 Source: patient Mode of arrival: Ambulatory Limitations: no limitations Related Data Previous Rx's Medication Instructions Recorded omeprazole 20 mg capsule,delayed 20 mg PO BID #60 cap 02/08/20 release metformin 500 mg tablet 500 mg PO BID #180 tab 04/18/20 Allergies Allergy/AdvReac Type Severity Reaction Status Date / Time No Known Drug Allergies Allergy Verified 04/12/21 09:47 Patient History Medical History (Updated 11/24/20 @ 00:00 by ) Anxiety Atypical chest pain Dyspepsia Eczema of both hands Elevated platelet count Fatigue GERD (gastroesophageal reflux disease) Impaired fasting glucose Migraine BRAY (nonalcoholic steatohepatitis) Non-alcoholic fatty liver disease Obesity Panic disorder (04/23/17) Pre-diabetes Family History Father Anxiety Mother Depression with anxiety Social History Smoking Status: Former smoker Smoking Status: Former smoker alcohol intake frequency: 0-2 drinks per day Alcohol type: beer, wine and hard liquor Substance Use Type: does not use Exam Initial Vital Signs Initial Vital Signs: Vital Signs Temperature 98.4 F 04/12/21 09:41 Pulse Rate 89 04/12/21 09:41 Respiratory Rate 14 04/12/21 09:41 Blood Pressure 139/91 H 04/12/21 09:41 Pulse Oximetry 99 04/12/21 09:41 Course Orders Ordered: ED Orders 04/12/21 09:46 COVID19 -Nasal swab/Pre-Proc Stat Vital Signs Vital signs: Vital Signs - 8 hr 04/12/21 09:41 Temperature 98.4 F Pulse Rate 89 Respiratory Rate 14 Blood Pressure 139/91 H Pulse Oximetry 99 Discharge Plan Departure Prescriptions: No Action metformin 500 mg tablet 500 mg PO BID Qty: 180 RF: 1 omeprazole 20 mg capsule,delayed release(DR/EC) 20 mg PO BID Qty: 60 RF: 0 Referrals: Faustino Little ARNP [Primary Care Provider] -
[2021-04-12 10:08] LABS: COVID19 -Nasal RAPID Negative (Negative)
[2021-04-12 11:24] LABS: Adenovirus Not Detected (Not Detect); B. parapertussis Not Detected (Not Detecte); Bordetella pertussis Not Detected (Not Detecte); Chlamydophila pneumoniae Not Detected (Not Detect); Coronavirus 229E Not Detected (Not Detect); Coronavirus HKU1 Not Detected (Not Detect); Coronavirus NL 63 Not Detected (Not Detect); Coronavirus OC43 Not Detected (Not Detect); Human Metapneumovirus Not Detected (Not Detect); Human Rhinovirus/Enterovirus Not Detected (Not Detect); Influenza A Not Detected (Not Detect); Influenza B Not Detected (Not Detect); Mycoplasma pneumoniae Not Detected (Not Detect); Parainfluenza Virus 1 Not Detected (Not Detect); Parainfluenza Virus 2 Not Detected (Not Detect); Parainfluenza Virus 3 Not Detected (Not Detect); Parainfluenza Virus 4 Not Detected (Not Detect); Respiratory Syncytial Virus Not Detected (Not Detect)
[2021-04-12 13:22] VITALS: PULSE 88; O2SAT 99
[2021-04-12 13:27] VITALS: BP 131/92; PULSE 89; O2SAT 99
[2021-04-12 15:13] LABS: SARS- CoV-2 Not Detected (Not Detecte)
--- NOTE | 2021-04-12 15:31 | PC.NURSE ---
Pt left without being discharged.
== END 2021-04-12 15:32 | disposition left against medical advice (07) ==
PROVIDERS: Emergency Provider Emergency Medicine; PCP Registered Nurse Diabetes Educator
DX: R05 Cough (principal); Z20.822 Contact with and (suspected) exposure to COVID-19
CPT/HCPCS: 71045; 81025; 87633; 87635; 99282; C9803

== ENCOUNTER → 2021-04-18 16:22 | Outpatient (CLI) | payer OTHER, SELFPAY ==
[2021-04-18 17:35] LABS: Influenza A - CEPHEID Flu A NEGATIVE (NEGATIVE); Influenza B - CEPHEID Flu B NEGATIVE (NEGATIVE)
[2021-04-18 17:40] LABS: COVID-19 CEPHEID PCR (VTM/NP) Negative (Negative)
== END ==
PROVIDERS: PCP Registered Nurse Diabetes Educator; Visit Provider Nurse Practitioner Family
DX: R06.02 Shortness of breath (principal); R53.83 Other fatigue; Z20.822 Contact with and (suspected) exposure to COVID-19
CPT/HCPCS: 87502; U0003

== ENCOUNTER → 2021-04-18 16:50 | Outpatient (CLI) | payer OTHER, SELFPAY ==
--- NOTE | 2021-04-18 16:52 | DI.RAD.S_ITS ---
PROCEDURE: XR CHEST 2V INDICATIONS: sob with exertion TECHNIQUE: 2 views of the chest were acquired. COMPARISON: [facility], CR, XR CHEST 1V, 04/12/2021, 10:23. [facility], CR, XR CHEST 2V, 11/09/2020, 12:46. FINDINGS: Surgical changes and devices: None. Lungs and pleura: Lungs are difficult to accurately assess due to body habitus-the interstitial prominence present likely is sequela of overlying soft tissues.. No pleural effusions or pneumothorax. Mediastinum: Mediastinal contours are normal. Heart size is normal. Bones and chest wall: No suspicious bony abnormalities. Soft tissues appear unremarkable. IMPRESSION: No definite pneumonia found, large body habitus, which produces a mild interstitial prominence pattern over the lungs bilaterally. The inspiratory volume is mildly reduced. Dictated by: Eliceo Harmon M.D. on 04/19/2021 at 8:37 Approved by: Eliceo Harmon M.D. on 04/19/2021 at 8:37
[2021-04-18 18:22] LABS: Hematocrit 38.8 % (36-46); Hemoglobin 13.2 g/dL (12.0-16.0); Mean Corpuscular Volume 82.3 fL (80-100); Platelet Count 488 X10^3/uL (150-400); Red Blood Cell Count 4.72 X10^6/uL (4.0-5.2); Red Cell Distribution Width 13.4 % (11.6-14.8); White Blood Cell Count 11.6 X10^3/uL (4.5-11.0)
[2021-04-18 18:35] LABS: BUN Creatinine Ratio 22.2 (6-22); Blood Urea Nitrogen 12 mg/dL (7-17); Calcium 9.5 mg/dL (8.4-10.2); Carbon Dioxide 26 mmol/L (22-32); Chloride 102 mmol/L (98-107); Estimated Glomerular Filt Rate > 60.0 mL/min (>60); Glucose 112 mg/dL (70-100); HEMOLYSIS < 15 (0-50); Potassium 3.8 mmol/L (3.4-5.1); Sodium 137 mmol/L (137-145)
== END ==
PROVIDERS: PCP Registered Nurse Diabetes Educator; Referring Provider Nurse Practitioner Family; Visit Provider Nurse Practitioner Family
DX: R53.83 Other fatigue (principal); R06.02 Shortness of breath; Z20.822 Contact with and (suspected) exposure to COVID-19
CPT/HCPCS: 36415; 71046; 80048; 84443; 85027; 87502; U0003

== ENCOUNTER → 2021-06-08 10:21 | Outpatient (CLI) | payer OTHER, SELFPAY | PROVIDERS: PCP Registered Nurse Diabetes Educator; Visit Provider Nurse Practitioner | DX: R30.9 Painful micturition, unspecified (principal) | CPT/HCPCS: 87077; 87086; 87186 ==

== ENCOUNTER → 2021-07-06 15:13 | Outpatient (CLI) | payer OTHER, SELFPAY ==
[2021-07-06 16:01] LABS: Hemoglobin A1C% w Est Avg Glu 6.4 % (4.0-6.0)
[2021-07-06 17:21] LABS: HCG Quantitative /Beta subunit < 2.4 mIU/mL
[2021-07-06 17:40] LABS: TSH w/ Reflex to FT4 1.67 uIU/mL (0.47-4.68)
== END ==
PROVIDERS: PCP Registered Nurse Diabetes Educator; Referring Provider Nurse Practitioner Family; Visit Provider Nurse Practitioner Family
DX: N91.2 Amenorrhea, unspecified (principal); R73.01 Impaired fasting glucose
CPT/HCPCS: 36415; 83036; 84443; 84702

== ENCOUNTER → 2021-08-07 16:48 | Outpatient (CLI) | payer OTHER, SELFPAY ==
[2021-08-07 19:11] LABS: Prolactin 14.9 ng/mL (3.0-18.6)
[2021-08-07 20:04] LABS: Follicle Stimulating Hormone 1.66 mIU/mL
[2021-08-08 08:47] LABS: Luteinizing Hormone 1.65 mIU/mL
[2021-08-08 09:02] LABS: Testosterone 14.4 ng/dL (5.71-77.0)
[2021-08-10 21:38] LABS: Estrogen 432 pg/mL (.)
== END ==
PROVIDERS: Nurse Practitioner Family; PCP Registered Nurse Diabetes Educator; Referring Provider Registered Nurse Diabetes Educator; Visit Provider Registered Nurse Diabetes Educator
DX: N91.5 Oligomenorrhea, unspecified (principal)
CPT/HCPCS: 36415; 82672; 83001; 83002; 84146; 84403

== ENCOUNTER → 2021-09-14 11:47 | Outpatient (CLI) | payer OTHER, SELFPAY ==
[2021-09-14 12:39] LABS: Pregnancy Test Urine Negative (Negative)
== END ==
PROVIDERS: PCP Registered Nurse Diabetes Educator; Referring Provider Nurse Practitioner Family; Visit Provider Nurse Practitioner Family
DX: R30.0 Dysuria (principal)
CPT/HCPCS: 81025; 87086

== ENCOUNTER 2021-09-16 15:43 | Emergency (ER) | payer OTHER, SELFPAY ==
[2021-09-16 16:09] VITALS: BP 144/104; PULSE 98; RESP 18; TEMP 36.1; O2SAT 98; BMI 62.3
[2021-09-16] MEDS: ONDANSETRON 4 MG/2 ML INJ IV ×2 (16:29→19:49)
[2021-09-16 16:50] LABS: Alanine Aminotransferase 95 IU/L (<35); Albumin 4.3 g/dL (3.5-5.0); Alkaline Phosphatase 131 U/L (38-126); Aspartate Aminotransferase 64 IU/L (14-36); Bilirubin Total 0.7 mg/dL (0.2-1.3); Blood Urea Nitrogen 11 mg/dL (7-17); Calcium 9.4 mg/dL (8.4-10.2); Carbon Dioxide 29 mmol/L (22-32); Chloride 105 mmol/L (98-107); Estimated Glomerular Filt Rate > 60.0 mL/min (>60); Globulin 4.2 g/dL (1.7-4.1); Glucose 109 mg/dL (70-100); HEMOLYSIS < 15 (0-50); Lipase 46 U/L (23-300); Potassium 4.2 mmol/L (3.4-5.1); Sodium 139 mmol/L (137-145); Total Protein 8.5 g/dL (6.3-8.2)
[2021-09-16 16:53] LABS: Add Manual Diff / Slide Review NO; Basophils Absolute Auto 100 /uL (0-100); Basophils Percent Auto 0.7 % (0-2); Eosinophils Absolute Auto 400 /uL (0-450); Eosinophils Percent Auto 4.1 % (2-4); Hematocrit 38.7 % (36-46); Hemoglobin 12.8 g/dL (12.0-16.0); Lymphocytes Absolute Auto 3300 /uL (1100-4500); Lymphocytes Percent Auto 35.1 % (25-40); Mean Corpuscular Hemoglobin 26.8 PG (26-34); Mean Corpuscular Volume 81.3 fL (80-100); Monocytes Absolute Auto 600 /uL (0-900); Monocytes Percent Auto 6.8 % (3-14); Neutrophils Absolute Auto 5000 /uL (1500-7000); Neutrophils Percent Auto 53.3 % (50-75); Platelet Count 491 X10^3/uL (150-400); Red Blood Cell Count 4.76 X10^6/uL (4.0-5.2); Red Cell Distribution Width 13.6 % (11.6-14.8); White Blood Cell Count 9.3 X10^3/uL (4.5-11.0)
[2021-09-16 17:29] LABS: Bilirubin Urine UA NEGATIVE (NEGATIVE); Glucose Urine UA NEGATIVE (Negative); Ketones Urine UA 1+ (NEGATIVE); Leukocyte Esterase Urine UA TRACE (NEGATIVE); Nitrite Urine UA POSITIVE (Negative); Occult Blood Urine UA 3+ (Negative); Protein Urine UA 1+ (Negative)
[2021-09-16 17:35] LABS: Appearance Urine UA Slightly Cloudy; Color Urine UA Amber; pH Urine UA 5.5 (4.5-8.0)
[2021-09-16 17:51] LABS: RBC Urine >100/HPF (0-5/HPF); WBC Urine 1-5/HPF (0-5/HPF)
[2021-09-16 17:52] LABS: Bacteria Urine Occasional (0-1); Culture Indicated Urine Specimen Cultured; Squamous Epithelial Cell Urine 0-1 /HPF (0-5/HPF)
[2021-09-16 17:53] LABS: Pregnancy Test Urine Negative (Negative)
--- NOTE | 2021-09-16 19:40 | DI.CT.S_ITS ---
PROCEDURE: CT ABDOMEN PELVIS W CON INDICATIONS: right sided pain upper, lower TECHNIQUE: After the administration of intravenous contrast, axial sections acquired from the lung bases to the pubic symphysis. Coronal and sagittal reformats were performed. For radiation dose reduction, the following was used: automated exposure control, adjustment of mA and/or kV according to patient size. COMPARISON: [facility], CT, ABDOMEN/PELVIS WITH CONTRAST, 08/10/2014, 10:18. [facility], CT, ABDOMEN/PELVIS WITH CONTRAST, 08/12/2007, 13:25. FINDINGS: Image quality: Excellent. Lung bases: Unremarkable. Heart: No significant findings. ABDOMEN: Liver: Hepatic steatosis, moderate hepatomegaly measuring up to 23.8 cm craniocaudad, previously present with the prior craniocaudad length of 20.9 cm. . Gallbladder: No inflammation seen. Biliary ducts: Unremarkable. Pancreas: Unremarkable. Spleen: Unremarkable. Adrenal Glands: Unremarkable. Kidneys and Ureters: Unremarkable. Stomach and Bowel: Stomach, small bowel loops, and colon are unremarkable. Peritoneum: No abnormal intraperitoneal fluid. No free air. Ventral Wall: No hernias. Abdominal Nodes: No retroperitoneal or mesenteric adenopathy by size criteria. Vessels: Aorta and inferior vena cava are normal in size. PELVIS: Pelvic Organs: Unremarkable. Bladder: Unremarkable. Pelvic Nodes: No enlarged lymph nodes. Miscellaneous: No hernias are seen. Normal appendix found right lower quadrant, no sign of ascites. Bones: Unremarkable. IMPRESSION: Moderate hepatomegaly, mildly worsened from the comparison study in 2013. Current craniocaudad length is 23.8 cm versus 20.9 cm previously and there is diffuse fatty infiltration, mildly worsened. No ascites or varices has developed. Normal appearing appendix located. No additional source of right lower sided abdominal/pelvic pain is found. Dictated by: Eliceo Harmon M.D. on 09/16/2021 at 20:14 Approved by: Eliceo Harmon M.D. on 09/16/2021 at 20:19
--- NOTE | 2021-09-16 19:42 | ED_ITS ---
HPI - Abdominal Pain General Chief Complaint: Abdominal Pain Stated Complaint: possible kidney stone Time Seen by Provider: 09/16/21 19:23 Source: patient Mode of arrival: Ambulatory History of Present Illness HPI narrative: 31-year-old female with history of prediabetes, prior kidney stones presenting today with worsening back pain and abdominal pain. She was having dysuria and frequency, she went to the walk-in clinic 09/14/2021, she was found have leukocytes in her urine started on Keflex. However the following day they called her and said her urine did not grow anything and she does not have a UTI. Symptoms have been ongoing now for 1 week. She is having increasing pain she has body aches sweats and chills. She is nauseous as well. Pain is sometimes radiating from her flank to her back, feels like prior stone. He denies any chest pain palpitations or shortness of breath. Related Data Previous Rx's Medication Instructions Recorded albuterol sulfate 90 mcg/actuation 2 puff INHALATION Q6H PRN #8.5 g 04/18/21 aerosol inhaler metformin 500 mg tablet 500 mg PO BID #180 tab 05/10/21 cephalexin 500 mg capsule 500 mg PO QID 5 Days #20 cap 09/14/21 phenazopyridine 200 mg tablet 200 mg PO TID 0 Days #6 tab 09/14/21 (Pyridium) cephalexin 500 mg capsule 500 mg PO QID #8 cap 09/16/21 ondansetron 4 mg disintegrating 4 mg PO Q8H PRN #10 tab 09/16/21 tablet Allergies Allergy/AdvReac Type Severity Reaction Status Date / Time No Known Drug Allergies Allergy Verified 09/16/21 16:09 Review of Systems Review of Systems Narrative: GENERAL: Denies chills, fatigue, malaise, fever, sweats, travel HEENT: Denies sinus pain, ear pain, sore throat, difficulty swallowing, neck pain RESPIRATORY: Denies dyspnea, cough, wheezing, hemoptysis, sputum. CARDIOVASCULAR: Denies chest pain, palpitations, orthopnea, edema GASTROINTESTINAL: See HPI : See HPI MUSCULOSKELETAL: Denies weakness, joint pain, or bony pain SKIN: No rash, no erythema, no pruritus NEUROLOGIC: Denies weakness, dizziness, headache, numbness, change in speech, confusion PSYCHIATRIC: No concerning psychosocial issues. 12 point review of systems is negative except for those stated above and HPI Patient History Medical History Anxiety Atypical chest pain BMI 60.0-69.9, adult Dyspepsia Eczema of both hands Elevated platelet count Fatigue GERD (gastroesophageal reflux disease) Impaired fasting glucose Migraine BRAY (nonalcoholic steatohepatitis) Non-alcoholic fatty liver disease Obesity Panic disorder (04/23/17) Pre-diabetes Prediabetes (06/2021) SOB (shortness of breath) on exertion URI (upper respiratory infection) Family History Father Anxiety Mother Depression with anxiety Social History Smoking Status: Former smoker Smoking Status: Former smoker alcohol intake frequency: 0-2 drinks per day Alcohol type: beer, wine and hard liquor Substance Use Type: does not use Exam Initial Vital Signs Initial Vital Signs: Vital Signs Temperature 97.0 F L 09/16/21 16:09 Pulse Rate 98 H 09/16/21 16:09 Respiratory Rate 18 09/16/21 16:09 Blood Pressure 144/104 H 09/16/21 16:09 Pulse Oximetry 98 09/16/21 16:09 GENERAL: Alert 31-year-old female with BMI of 62 in no acute distress. HEENT: Head atraumatic,EOMI, pupils reactive, face symmetric, moist mucous membranes CARDIOVASCULAR: Regular rate and rhythm without murmurs, rubs or gallops. RESPIRATORY: Breath sounds equal bilaterally, no wheezes rales or rhonchi. ABDOMEN: Soft obese, tender right upper quadrant tender right lower quadrant no guarding no rebound minimal epigastric pain : Mild rightCVA tenderness EXTREMITIES: Normal range of motion, no clubbing or edema. Neurovascularly intact NEUROLOGICAL: Alert and oriented x4.Normal gait and speech. SKIN: Warm, dry, no laceration, no petechiae, no rashes or lesions. Course Orders Ordered: ED Orders 09/16/21 17:11 Test Urine Stat Urinalysis and Microscopic Stat Urine Culture Stat 09/16/21 19:40 CT abdomen pelvis w con Stat Discontinued Medications Ceftriaxone Sodium 1,000 mg/ (Sodium Chloride) 100 mls @ 200 mls/hr IV NOW ONE Stop: 09/16/21 19:41 Last Infusion: 09/16/21 21:05 Dose: 0 mls/hr Documented by: Admin: 09/16/21 19:48 Dose: 200 mls/hr Documented by: LISSET Ketorolac Tromethamine (Ketorolac 30 Mg/Ml Vial) 15 mg IV NOW ONE Stop: 09/16/21 19:41 Last Admin: 09/16/21 19:49 Dose: 15 mg Documented by: LISSET Ondansetron HCl (Ondansetron 4 Mg/2 Ml Inj) 4 mg IV NOW ONE Stop: 09/16/21 16:14 Last Admin: 09/16/21 16:29 Dose: 4 mg Documented by: FRANCES Ondansetron HCl (Ondansetron 4 Mg/2 Ml Inj) 4 mg IV NOW ONE Stop: 09/16/21 19:41 Last Admin: 09/16/21 19:49 Dose: 4 mg Documented by: LISSET Vital Signs Vital signs: Vital Signs - 8 hr 09/16/21 21:06 Pulse Rate 68 Respiratory Rate 18 Blood Pressure 150/88 H Pulse Oximetry 97 MDM - Abdominal Pain Lab Data Result diagrams: 09/16/21 16:23 09/16/21 16:23 Labs: Lab Results 09/16/21 09/16/21 09/16/21 Range/Units 16:23 16:23 17:11 WBC 9.3 (4.5-11.0) X10^3/uL RBC 4.76 (4.0-5.2) X10^6/uL Hgb 12.8 (12.0-16.0) g/dL Hct 38.7 (36-46) % MCV 81.3 (80-100) fL MCH 26.8 (26-34) PG MCHC 33.0 (30-36) % RDW 13.6 (11.6-14.8) % Plt Count 491 H (150-400) X10^3/uL Neut % (Auto) 53.3 (50-75) % Lymph % (Auto) 35.1 (25-40) % [place] % (Auto) 6.8 (3-14) % Eos % (Auto) 4.1 H (2-4) % Baso % (Auto) 0.7 (0-2) % Neut # (Auto) 5000 (8692-7973) /uL Lymph # (Auto) 3300 (1355-6656) /uL Dawes # (Auto) 600 (0-900) /uL Eos # (Auto) 400 (0-450) /uL Baso # (Auto) 100 (0-100) /uL Sodium 139 (137-145) mmol/L Potassium 4.2 (3.4-5.1) mmol/L Chloride 105 (98-107) mmol/L Carbon Dioxide 29 (22-32) mmol/L BUN 11 (7-17) mg/dL Creatinine 0.50 L (0.52-1.04) mg/dL Estimated GFR > 60.0 (>60) mL/min BUN/Creatinine Ratio 22.0 (6-22) Glucose 109 H (70-100) mg/dL Calcium 9.4 (8.4-10.2) mg/dL Total Bilirubin 0.7 (0.2-1.3) mg/dL AST 64 H (14-36) IU/L ALT 95 H (<35) IU/L Alkaline Phosphatase 131 H (38-126) U/L Total Protein 8.5 H (6.3-8.2) g/dL Albumin 4.3 (3.5-5.0) g/dL Globulin 4.2 H (1.7-4.1) g/dL Albumin/Globulin Ratio 1.0 (1.0-2.8) Lipase 46 (23-300) U/L Urine Color Sandi Urine Appearance Slightly cloudy Urine pH 5.5 (4.5-8.0) Ur Specific [place] 1.020 (1.000-1.035) Urine Protein 1+ H (Negative) Urine Glucose (UA) Negative (Negative) g/dL Urine Ketones 1+ H (NEGATIVE) Urine Occult Blood 3+ H (Negative) Urine Nitrate Positive H (Negative) Urine Bilirubin Negative (NEGATIVE) Urine Urobilinogen 1.0 (0.2) E.U./dL Ur Leukocyte Esterase Trace H (NEGATIVE) Urine RBC >100/hpf H (0-5/HPF) Urine WBC 1-5/hpf (0-5/HPF) Ur Squamous Epith Cells 0-1 /hpf (0-5/HPF) Urine Bacteria Occasional (0-1) (None) Ur Culture Indicated? Specimen cultured Urine Test (Negative) 09/16/21 Range/Units 17:11 WBC (4.5-11.0) X10^3/uL RBC (4.0-5.2) X10^6/uL Hgb (12.0-16.0) g/dL Hct (36-46) % MCV (80-100) fL MCH (26-34) PG MCHC (30-36) % RDW (11.6-14.8) % Plt Count (150-400) X10^3/uL Neut % (Auto) (50-75) % Lymph % (Auto) (25-40) % Dawes % (Auto) (3-14) % Eos % (Auto) (2-4) % Baso % (Auto) (0-2) % Neut # (Auto) (3436-3745) /uL Lymph # (Auto) (7456-8949) /uL Dawes # (Auto) (0-900) /uL Eos # (Auto) (0-450) /uL Baso # (Auto) (0-100) /uL Sodium (137-145) mmol/L Potassium (3.4-5.1) mmol/L Chloride (98-107) mmol/L Carbon Dioxide (22-32) mmol/L BUN (7-17) mg/dL Creatinine (0.52-1.04) mg/dL Estimated GFR (>60) mL/min BUN/Creatinine Ratio (6-22) Glucose (70-100) mg/dL Calcium (8.4-10.2) mg/dL Total Bilirubin (0.2-1.3) mg/dL AST (14-36) IU/L ALT (<35) IU/L Alkaline Phosphatase (38-126) U/L Total Protein (6.3-8.2) g/dL Albumin (3.5-5.0) g/dL Globulin (1.7-4.1) g/dL Albumin/Globulin Ratio (1.0-2.8) Lipase (23-300) U/L Urine Color Urine Appearance Urine pH (4.5-8.0) Ur Specific [place] (1.000-1.035) Urine Protein (Negative) Urine Glucose (UA) (Negative) g/dL Urine Ketones (NEGATIVE) Urine Occult Blood (Negative) Urine Nitrate (Negative) Urine Bilirubin (NEGATIVE) Urine Urobilinogen (0.2) E.U./dL Ur Leukocyte Esterase (NEGATIVE) Urine RBC (0-5/HPF) Urine WBC (0-5/HPF) Ur Squamous Epith Cells (0-5/HPF) Urine Bacteria (None) Ur Culture Indicated? Urine Test Negative (Negative) Imaging Data CT scan - abdomen/pelvis: Radiologist's Impression: PROCEDURE:? CT ABDOMEN PELVIS W CON ? INDICATIONS:? right sided pain upper, lower ? TECHNIQUE:? After the administration of intravenous contrast, axial sections acquired from the lung bases to the pubic symphysis.? Coronal and sagittal reformats were performed.? For radiation dose reduction, the following was used:? automated exposure control, adjustment of mA and/or kV according to patient size.? ? COMPARISON:? [facility], CT, ABDOMEN/PELVIS WITH CONTRAST, 08/10/2014, 10:18.? [facility], CT, ABDOMEN/PELVIS WITH CONTRAST, 08/12/2007, 13:25. ? FINDINGS:? Image quality:? Excellent.? ? Lung bases:? Unremarkable. Heart:? No significant findings. ? ABDOMEN: Liver:? Hepatic steatosis, moderate hepatomegaly measuring up to 23.8 cm craniocaudad, previously present with the prior craniocaudad length of 20.9 cm.? .? ? Gallbladder:? No inflammation seen.? ? Biliary ducts:? Unremarkable.? ? Pancreas:? Unremarkable.? ? Spleen:? Unremarkable.? ? Adrenal Glands:? Unremarkable.? ? Kidneys and Ureters:? Unremarkable.? ? ? Stomach and Bowel:? Stomach, small bowel loops, and colon are unremarkable.? Peritoneum:? No abnormal intraperitoneal fluid.? No free air.? ? Ventral Wall: ? No hernias.? Abdominal Nodes:? No retroperitoneal or mesenteric adenopathy by size criteria.? Vessels:? Aorta and inferior vena cava are normal in size.? ? PELVIS: Pelvic Organs:? Unremarkable.? ? Bladder:? Unremarkable.? ? Pelvic Nodes: No enlarged lymph nodes.? Miscellaneous: No hernias are seen.? Normal appendix found right lower quadrant, no sign of ascites. ? ? Bones:? Unremarkable.? IMPRESSION:? Moderate hepatomegaly, mildly worsened from the comparison study in 2013.? Current craniocaudad length is 23.8 cm versus 20.9 cm previously and there is diffuse fatty infiltration, mildly worsened. ? No ascites or varices has developed.? Normal appearing appendix located.? No additional source of right lower sided abdominal/pelvic pain is found. ? ? Dictated by: Eliceo Harmon M.D. on 09/16/2021 at 20:14 ? ? Approved by: Eliceo Harmon M.D. on 09/16/2021 at 20:19 ? MDM Narrative Medical decision making narrative: Patient has nitrates and leukocytes in her urine today. It is cloudy symptoms are consistent with UTI although urine from 2 days ago did not show show any growth. At this time I give her dose of Rocephin in the ED she can continue Keflex as previously prescribed she has only taken 1 or [address] is negative for appendicitis kidney stone or gallbladder issue. She is not septic. All she is feeling better and ready knee able to go home. I have extended her Keflex prescription for a total of 7 days Discharge Plan Departure Patient Disposition: Home Clinical Impression: UTI (urinary tract infection) Instructions: DI for Urinary Tract Infection (UTI) Activity Restrictions/Additional Instructions: *You have been diagnosed with a UTI *What to do: At this time it appears that you do have a bladder infection. Continue your antibiotics as previously prescribed. We will call you in 2-3 days if we need to change her antibiotics. If you do not hear from us please finish your course of antibiotics. *Continue to take medications as directed Keflex 500 mg 4 times daily for total of 7 days (your previously prescribed 5 days)--> SENT TO [facility] Zofran 4 mg every 8 hours if needed for nausea or vomiting *Follow up with your primary care provider in 2-3 days or call [phone] *Return to ER if you should have increasing pain fever persistent vomiting any new, worsening or concerning symptoms Prescriptions: New cephalexin 500 mg capsule 500 mg PO QID Qty: 8 0RF ondansetron 4 mg tablet,disintegrating 4 mg PO Q8H PRN (Reason: nausea and vomiting) Qty: 10 0RF No Action cephalexin 500 mg capsule 500 mg PO QID 5 Days Qty: 20 0RF phenazopyridine [Pyridium] 200 mg tablet 200 mg PO TID 0 Days Qty: 6 0RF metformin 500 mg tablet 500 mg PO BID Qty: 180 1RF albuterol sulfate 90 mcg/actuation HFA aerosol inhaler 2 puff inhalation Q6H PRN (Reason: shortness of breath or wheezing) Qty: 8.5 0RF Referrals: Faustino Little ARNP [Primary Care Provider] -
[2021-09-16] MEDS: cefTRIAXone 1,000 MG in SODIUM CHLORIDE 0.9% 100 ML 200 ML IV (19:48)
[2021-09-16] MEDS: KETOROLAC 30 MG/ML VIAL 15 MG IV (19:49)
[2021-09-16 21:06] VITALS: BP 150/88; PULSE 68; RESP 18; O2SAT 97
== END 2021-09-16 21:05 | disposition home or self-care (01) ==
PROVIDERS: Emergency Medicine; Emergency Provider Emergency Medicine; PCP Registered Nurse Diabetes Educator
DX: N39.0 Urinary tract infection, site not specified (principal)
CPT/HCPCS: 36415; 74177; 80053; 81001; 81025; 83690; 85025; 87086; 96365; 96375; 96376; 99284; J0696; J1885; J2405

== ENCOUNTER 2023-08-19 15:11 | Emergency (ER) | payer OTHER, SELFPAY ==
[2023-08-19 15:21] VITALS: BP 119/113; PULSE 104; RESP 18; TEMP 36.3; O2SAT 99; BMI 62.4
[2023-08-19 16:16] LABS: Influenza A - CEPHEID Flu A NEGATIVE (NEGATIVE); Influenza B - CEPHEID Flu B NEGATIVE (NEGATIVE); Respiratory Syncytial Virus Negative (Negative)
[2023-08-19 16:23] LABS: COVID-19 CEPHEID 4-PLEX PCR Negative (Negative)
[2023-08-19 16:42] VITALS: BP 138/85; PULSE 97; RESP 22; TEMP 36.8; O2SAT 100
[2023-08-19 17:58] VITALS: BP 189/107; PULSE 96; RESP 24; O2SAT 98
[2023-08-19 18:05] VITALS: BP 133/98; RESP 18
--- NOTE | 2023-08-20 11:40 | ED.URI ---
HPI - URI/Sore Throat <Trent Burns PA-C - Last Filed: 08/20/23 12:52> General Chief Complaint: Upper Respiratory Symptoms Stated Complaint: trouble breathing/headache/cat scratch Time Seen by Provider: 08/19/23 16:32 Source: patient Mode of arrival: Ambulatory History of Present Illness HPI Narrative: 33-year-old female presents to the ED with a cough for 2 weeks. Patient also was scratched by her cat earlier today and has some scratches on her palm. Denies fever, chills, chest pain, shortness of breath, nausea, vomiting, diarrhea. Patient states that the cough is the most troublesome symptom that she is experiencing, and that it causes the back of her head to hurt when she coughs. Patient is also concerned about her elevated initial blood pressure in the ED. patient does not currently have a PCP. Patient endorses full range of motion of her hands. Related Data Previous Rx's Medication Instructions Recorded albuterol sulfate 90 mcg/actuation 2 puff inhalation Q6H PRN 04/18/21 aerosol inhaler shortness of breath or wheezing #8.5 grams metformin 500 mg tablet 500 mg PO BID #180 tabs 05/10/21 phenazopyridine 200 mg tablet 200 mg PO TID 6 doses #6 tabs 09/14/21 (Pyridium) cephalexin 500 mg capsule 500 mg PO QID #8 caps 09/16/21 ondansetron 4 mg disintegrating 4 mg PO Q8H PRN nausea and 09/16/21 tablet vomiting #10 tabs Allergies Allergy/AdvReac Type Severity Reaction Status Date / Time No Known Drug Allergies Allergy Verified 08/19/23 15:21 Review of Systems <Trent Burns PA-C - Last Filed: 08/20/23 12:52> Constitutional Constitutional: Denies chills, Denies fatigue, Denies fever(s), Denies frequent falls, Reports headache(s), Denies lethargy and Denies weakness Eyes Eyes: Denies change in vision, Denies eye discharge, Denies irritation and Denies loss of vision ENT Ears, Nose, Mouth, and Throat: Denies change in voice, Denies dizziness, Reports headache(s), Denies neck pain, Denies sore throat and Denies throat swelling Cardiovascular Cardiovascular: Denies chest pain, Denies irregular heart rhythm, Denies lightheadedness, Denies palpitations, Denies dyspnea, Denies dyspnea on exertion and Denies orthopnea Respiratory Respiratory: Reports cough, Denies dyspnea, Denies dyspnea on exertion and Denies wheezing Gastrointestinal Gastrointestinal: Denies abdominal pain, Denies change in bowel habits, Denies diarrhea, Denies nausea and Denies vomiting Musculoskeletal Musculoskeletal: Denies neck pain and Denies numbness Integumentary/Breasts Skin/Breast: Denies pruritus, Denies erythema, Denies rash and Reports wounds Neurologic Neurologic: Denies behavioral changes, Denies confusion, Denies dizziness, Denies frequent falls, Reports headache(s), Denies loss of vision, Denies numbness and Denies weakness Psychiatric Psychiatric: Denies anxiety, Denies behavioral changes, Denies confusion, Denies depression, Denies homicidal ideation and Denies suicidal ideation Endocrine Endocrine: Denies fatigue, Denies flushing and Denies palpitations Hematologic/Lymphatic Hematologic/Lymphatic: Denies easy bruising Allergic/Immunologic Allergic/Immunologic: Denies urticaria, Denies throat swelling and Denies wheezing Patient History <Trent Burns PA-C - Last Filed: 08/20/23 12:52> Medical History Prediabetes (06/2021) BMI 60.0-69.9, adult URI (upper respiratory infection) SOB (shortness of breath) on exertion Pre-diabetes Impaired fasting glucose Elevated platelet count GERD (gastroesophageal reflux disease) Fatigue Migraine Obesity Non-alcoholic fatty liver disease Anxiety Panic disorder (04/23/17) Atypical chest pain Eczema of both hands BRAY (nonalcoholic steatohepatitis) Dyspepsia Family History Father Anxiety Mother Depression with anxiety Social History Smoking Status: Former smoker Smoking Status: Former smoker alcohol intake frequency: 0-2 drinks per day Alcohol type: beer, wine and hard liquor Substance Use Type: does not use Exam <Trent Burns PA-C - Last Filed: 08/20/23 12:52> Narrative Exam Narrative: Const General:?cooperative, healthy appearing and comfortable [facility] Head:?normal to inspection Ears:?hearing grossly normal bilaterally Nose:?external nose normal Face and sinus:?normal facial exam and sinuses nontender Mouth:?oral mucosae normal Throat:?posterior oropharynx normal Eyes General:?appearance normal, both eyes and all related structures Neck Neck:?normal visual inspection and no lymphadenopathy noted Resp Effort & Inspection:?normal respiratory effort Auscultation:?clear to auscultation bilaterally Cardio Rate:?regular rate Rhythm:?regular rhythm Integumentary There are multiple scratches on the palm of her hands. No signs of infection. Full range of motion of the hands. Strength and sensation intact. Patient is neurovascularly intact. Neuro General:?patient alert, patient awake and patient oriented x3 Initial Vital Signs Initial Vital Signs: Vital Signs Temperature 97.4 F L 08/19/23 15:21 Pulse Rate 104 H 08/19/23 15:21 Respiratory Rate 18 08/19/23 15:21 Blood Pressure 119/113 H 08/19/23 15:21 Pulse Oximetry 99 08/19/23 15:21 Oxygen Delivery Method Room Air 08/19/23 15:21 <Ashley Farfan DO - Last Filed: 08/20/23 13:30> Initial Vital Signs Initial Vital Signs: Vital Signs Temperature 97.4 F L 08/19/23 15:21 Pulse Rate 104 H 08/19/23 15:21 Respiratory Rate 18 08/19/23 15:21 Blood Pressure 119/113 H 08/19/23 15:21 Pulse Oximetry 99 08/19/23 15:21 Oxygen Delivery Method Room Air 08/19/23 15:21 MDM - URI/Sore Throat <Trent Burns PA-C - Last Filed: 08/20/23 12:52> Lab Data Labs: Lab Results 08/19/23 Range/Units 15:26 SARS-CoV-2 (PCR) Negative (Negative) Influenza A (RT-PCR) Flu a negative (NEGATIVE) Influenza B (RT-PCR) Flu b negative (NEGATIVE) RSV (PCR) Negative (Negative) MDM Narrative Medical decision making narrative: 33-year-old female presents to the ED with a cough for 2 weeks. Respiratory panel was negative for influenza, COVID, RSV. Counseled patient on viral illnesses, symptom management with cough medications. Patient declined Tessalon Perles or a codeine cough syrup. Counseled patient that Mucinex might be helpful for her symptoms. Recommend good hydration. Recommend use of a home blood pressure cuff to monitor her blood pressure at home, establish care with a PCP go over the blood pressure log. Patient's initial blood pressure was 119/113. Patient's blood pressure was repeated in the ED and came down to 135/85. It was noted that patient's blood pressure went up when she got increasingly anxious. Counseled patient that blood pressures can fluctuate daily and get elevated with pain or illness. Patient's scratches were evaluated, antibiotics recommended. Patient declined antibiotics at this time. Patient agrees to monitor the scratches and return to the ED if she notes any signs of infection. ED return precautions were discussed with patient. Patient verbalized understanding. Medical records reviewed: Yes <Ashley Farfan DO - Last Filed: 08/20/23 13:30> Lab Data Labs: Lab Results 08/19/23 Range/Units 15:26 SARS-CoV-2 (PCR) Negative (Negative) Influenza A (RT-PCR) Flu a negative (NEGATIVE) Influenza B (RT-PCR) Flu b negative (NEGATIVE) RSV (PCR) Negative (Negative) Discharge Plan Departure Patient Disposition: Home Clinical Impression: Cough Qualifiers: Cough type: acute Qualified Code(s): R05.1 - Acute cough Instructions: Cough Activity Restrictions/Additional Instructions: Were evaluated in the ED today for a cough and a cat scratch injury. It appears that your cough is due to a viral upper respiratory infection. You may take [id number] cough medications, Mucinex for the cough. Please continue to stay well hydrated. Please monitor the scratch injuries for signs of infection which include worsening redness, pain, swelling, discharge, warmth. Return to the ED if you note any signs of infection. Your 1st blood pressure reading in the ED was elevated, however subsequent readings were normal. Please establish care with a primary care doctor to monitor your blood pressure and overall health. You may also buy a blood pressure cuff and test your blood pressure readings at the same time twice daily and keep a log to take to your primary care doctor. Prescriptions: No Action phenazopyridine [Pyridium] 200 mg tablet 200 mg PO TID 0 Days Qty: 6 0RF metformin 500 mg tablet 500 mg PO BID Qty: 180 1RF albuterol sulfate 90 mcg/actuation HFA aerosol inhaler 2 puff inhalation Q6H PRN (Reason: shortness of breath or wheezing) Qty: 8.5 0RF cephalexin 500 mg capsule 500 mg PO QID Qty: 8 0RF ondansetron 4 mg tablet,disintegrating 4 mg PO Q8H PRN (Reason: nausea and vomiting) Qty: 10 0RF Referrals: Faustino Little ARNP [Primary Care Provider] - Stand Alone Forms: Patient Portal/API ED Sign-out <Ashley Farfan DO - Last Filed: 08/20/23 13:30> Cosign ED Attending Cosignature Attestation: I was available for consultation.
== END 2023-08-19 18:12 | disposition home or self-care (01) ==
PROVIDERS: Emergency Medicine; Emergency Provider Student in an Organized Health Care Education/Training Program; PCP Registered Nurse Diabetes Educator
DX: R05.1 Acute cough (principal)
CPT/HCPCS: 0241U; 99281; 99282

== ENCOUNTER → 2024-01-16 09:19 | Outpatient (CLI) | payer BC, SELFPAY ==
[2024-01-16 10:01] LABS: Add Manual Diff / Slide Review NO; Basophils Absolute Auto 100 /uL (0-100); Basophils Percent Auto 0.8 % (0-2); Eosinophils Absolute Auto 500 /uL (0-450); Eosinophils Percent Auto 5.1 % (2-4); Hematocrit 37.5 % (36-46); Hemoglobin 12.7 g/dL (12.0-16.0); Lymphocytes Absolute Auto 3600 /uL (1100-4500); Lymphocytes Percent Auto 39.4 % (25-40); Mean Corpuscular HGB Conc 33.8 % (30-36); Mean Corpuscular Hemoglobin 27.3 PG (26-34); Mean Corpuscular Volume 80.8 fL (80-100); Monocytes Absolute Auto 700 /uL (0-900); Monocytes Percent Auto 7.7 % (3-14); Neutrophils Absolute Auto 4300 /uL (1500-7000); Platelet Count 501 X10^3/uL (150-400); Red Blood Cell Count 4.64 X10^6/uL (4.0-5.2); Red Cell Distribution Width 13.7 % (11.6-14.8); White Blood Cell Count 9.2 X10^3/uL (4.5-11.0)
[2024-01-16 10:18] LABS: Alanine Aminotransferase 56 IU/L (<35); Albumin 4.3 g/dL (3.5-5.0); Albumin Globulin Ratio 1.1 (1.0-2.8); Alkaline Phosphatase 131 U/L (38-126); Aspartate Aminotransferase 41 IU/L (14-36); Bilirubin Total 0.7 mg/dL (0.2-1.3); Blood Urea Nitrogen 15 mg/dL (7-17); Calcium 9.1 mg/dL (8.4-10.2); Carbon Dioxide 28 mmol/L (22-32); Chloride 105 mmol/L (98-107); Cholesterol 169 mg/dL (140-199); Estimated Glomerular Filt Rate > 60 mL/min (>60); Globulin 3.9 g/dL (1.7-4.1); Glucose 158 mg/dL (70-100); HDL Cholesterol 43 mg/dL (40-60); HEMOLYSIS < 15 (0-50); LDL Cholesterol Calculated 102 mg/dL (<100); Potassium 4.3 mmol/L (3.4-5.1); Sodium 138 mmol/L (137-145); Total Protein 8.2 g/dL (6.3-8.2); Triglycerides 118 mg/dL (35-150)
[2024-01-16 10:33] LABS: Creatinine Urine Random 131.12 mg/dL
[2024-01-16 10:37] LABS: Microalbumin Urine Random 1.1 mg/dL (0-1.6)
[2024-01-16 10:49] LABS: TSH w/ Reflex to FT4 2.38 uIU/mL (0.47-4.68)
== END ==
PROVIDERS: PCP Student in an Organized Health Care Education/Training Program; Referring Provider Student in an Organized Health Care Education/Training Program; Visit Provider Student in an Organized Health Care Education/Training Program
DX: E11.9 Type 2 diabetes mellitus without complications (principal); R06.02 Shortness of breath; E07.9 Disorder of thyroid, unspecified
CPT/HCPCS: 36415; 80053; 80061; 82043; 82570; 84443; 85025

== ENCOUNTER → 2024-03-06 09:03 | Outpatient (CLI) | payer BC, SELFPAY ==
--- NOTE | 2024-03-06 09:08 | DIAB.MNT ---
Initial Diabetes Medical Nutrition Therapy Assessment Name: Ofelia Lang Date: 03/06/24 Time: [id number] Dx: Type II Diabetes Provider: Khadra Diaz Learning Style: Doing/Listening/Watching Ofelia presents for intial DM visit, accompanied by her spouse Ryan. Seems like a new diagnosis per hgA1c. Was off Metformin for a bit due to insurance gap. Focusing on low CHO and high protein. [place] to cook from grandmother, who also had DM. Did a calculator online to determine protein recs, which ended up showing a rec 120g PRO per day, which she felt was impossible. States the highest protein intake she gets is 70g. Eye exam in 12 months: no (insurance barrier with work insurance-- plans to improve in the next few months) Dental exam in 12 months: yes (free cleaning last July at a free clinic) Checks feet at home, some numbness in small toes on each foot. Improved over the last few months with wt loss. Not on any GLP1 due to cost. Taking Metformin for Dm and phentermine for wt loss. Plans to start GLP1 after insurance coverage is worked out. Feeling off in the evening and morning. Feels like sugar crash. Considering increasing Metformin. Endorses some lethargy in the morning. Interested in BG monitoring for symptoms. Has old meter/strips, no rx. Reports h/o mother focusing on Ofelia's wt, which led her to yo-yo diet. Diet Recall: 830-9a: protein shake OR eggs with sausage or serrato 130-2p: 1c Serbian yogurt with 1TBS chance and 1TBS pb with sprinkle chocolate chips and handful berries 6-7p: protein, veggie, low CHO tortilla or regular bun sn: nothing or SF pudding OR 2-3c watermelon OR 1 sheryl *some nights may not eat until 1030p-12a due to gnosticist events Anthropometrics: Ht: 61 Wt: 340# Physical Activity: Goal to run again once wt is under 250#. Got a standing desk at work. 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 Trying to move more at work. Feels like she does not know where to start. Self-Monitoring Blood Glucose: None, provider said not necessary at this time per pt. Has a meter at home. Had been checking on and off at home. Has One Touch meter at home. May not need to check, as discussed with provider, but she is interested in knowing what her symptom numbers may be. Diabetes Medications: 500mg Metformin AM Pertinent Labs: HgA1c: 7% 12/2023 Past Medical History: (Last Reviewed 08/20/23 @ 12:51 by Trent Burns PA-C) Anxiety Atypical chest pain BMI 60.0-69.9, adult Dyspepsia Eczema of both hands Elevated platelet count Fatigue GERD (gastroesophageal reflux disease) Impaired fasting glucose Migraine BRAY (nonalcoholic steatohepatitis) Non-alcoholic fatty liver disease Obesity Panic disorder (04/23/17) Pre-diabetes Prediabetes (06/2021) SOB (shortness of breath) on exertion URI (upper respiratory infection) Nutrition Rx: Carbohydrates: Meal:30g Snack:15-30g Nutrition Diagnosis: - Food and nutrition related knowledge deficit r/t no previous mnt aeb pt report - Physical inactivity r/t limitations with comfort / body size aeb pt report Intervention: This participant was very receptive. Provided appropriate educational handouts. Discussed the following topics: Completed intake assessment. Discussed barriers to care. Pathophysiology of T2DM HgA1c, its correlation to blood glucose numbers, and rationale for goal Option of self-monitoring, how often, and when to check. Suggested checking at different times to evaluate meals/symtoms Plate Method, impact of macronutrients on blood sugar, meal timing, carbohydrate counting, pairing macronutrients and spreading out carbohydrates for better blood glucose management Recommended servings for carbohydrates at meals and snacks Protein recs Brainstormed appropriate meal plan based on food preferences Role of physical activity and following provider guidelines for safety Created SMART goals for patient self-care and success. Goals: Keep fruit to 1-2 c per serving Pair PRO with CHO Try to eat q 3-5 hours Aim for veggies 2x per day Try BG monitoring prn Try nadine at home Follow-up: JAYLEN CABALLERO follow-up in 2-3 weeks Leah Serna RDN, ADA Certified Diabetes Care and Administrator Pesticide P: [phone] Thank you for this referral
== END ==
PROVIDERS: PCP Student in an Organized Health Care Education/Training Program; Referring Provider Student in an Organized Health Care Education/Training Program
DX: E11.9 Type 2 diabetes mellitus without complications (principal); Z79.84 Long term (current) use of oral hypoglycemic drugs; Z71.3 Dietary counseling and surveillance
CPT/HCPCS: 97802

== ENCOUNTER → 2024-03-27 09:07 | Outpatient (CLI) | payer BC, SELFPAY ==
--- NOTE | 2024-04-16 11:42 | DIAB.MNTFU ---
Follow-up Diabetes Medical Nutrition Therapy Assessment Name: Ofelia Lang Date: 03/27/24 Time: 915-10a Dx: Type II Diabetes Ofelia presents for DM visit, accompanied by her spouse Ryan. Reduced fruit intake. Has added some sweet potatoes. Eating protein foods with carbs now more consistently. Increased veggie intake. Still working on meal timing. Had a busy week and difficulty. Trying to eat at 1130a-12p at work. Then adding snack at 2p. Trying to eat before youth group to avoid long periods of fasting. Eye exam in 12 months: no (insurance barrier with work insurance-- plans to improve in the next few months) Dental exam in 12 months: yes (free cleaning last July at a free clinic) Checks feet at home, some numbness in small toes on each foot. Improved over the last few months with wt loss. Not on any GLP1 due to cost. Taking Metformin for Dm and phentermine for wt loss with recently added topiramate. States this has reduced her feeling off in the evening and morning. Plans to start GLP1 after insurance coverage is worked out. Diet Recall: 830-9a: protein shake OR eggs with sausage or serrato 1130-2p: leftovers; sweet potato with beef+ veggies sn: nothing or fruit or veggies and hummus 6-7p: protein, veggie, sweet potatoes or bread sn: nothing or fruit or sami yogurt frozen bar Anthropometrics: Ht: 61 Wt: 340# Physical Activity: Goal to run again once wt is under 250# per report. Got a standing desk at work. 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 Trying to move more at work. wants to go to the gym. No nadine yet. Time is the main barrier. Is interested in shooting hoops at [employer] or park. Self-Monitoring Blood Glucose: Wore a sample CGM from provider. Reviewed in bing results, indicating mostly in goal BG. Diabetes Medications: 500mg Metformin AM Pertinent Labs: HgA1c: 7% 12/2023 Past Medical History: (Last Reviewed 08/20/23 @ 12:51 by Trent Burns PA-C) Anxiety Atypical chest pain BMI 60.0-69.9, adult Dyspepsia Eczema of both hands Elevated platelet count Fatigue GERD (gastroesophageal reflux disease) Impaired fasting glucose Migraine BRAY (nonalcoholic steatohepatitis) Non-alcoholic fatty liver disease Obesity Panic disorder (04/23/17) Pre-diabetes Prediabetes (06/2021) SOB (shortness of breath) on exertion URI (upper respiratory infection) Nutrition Rx: Carbohydrates: Meal:30g Snack:15-30g Nutrition Diagnosis: - Food and nutrition related knowledge deficit r/t no previous mnt aeb pt report- in progress - Physical inactivity r/t limitations with comfort / body size aeb pt report- in progress Intervention: This participant was very receptive. Provided appropriate educational handouts. Discussed the following topics: Reviewed diet changes Assessed CGM results Discussed her interest in phys activity and what feels comfortable/fun Nutrition recommendations based on foods she enjoys Created SMART goals for patient self-care and success. Goals: Keep fruit to 1-2 c per serving- met Pair PRO with CHO- met Try to eat q 3-5 hours- in progress Aim for veggies 2x per day- in progress Try BG monitoring prn- met Try nadine at home- d/c Try adding movement you enjoy, ie shooting hoops - new Follow-up: JAYLEN CABALLERO follow-up in 2-3 weeks Leah Serna RDN, ADA Certified Diabetes Care and Art Education Professor P: [phone] Thank you for this referral
== END ==
PROVIDERS: PCP Student in an Organized Health Care Education/Training Program; Referring Provider Student in an Organized Health Care Education/Training Program; Visit Provider Student in an Organized Health Care Education/Training Program
DX: E11.9 Type 2 diabetes mellitus without complications (principal); Z79.84 Long term (current) use of oral hypoglycemic drugs; Z71.3 Dietary counseling and surveillance
CPT/HCPCS: 97803

== ENCOUNTER → 2024-04-24 11:03 | Outpatient (CLI) | payer BC, SELFPAY ==
--- NOTE | 2024-04-24 11:07 | DIAB.MNTFU ---
Follow-up Diabetes Medical Nutrition Therapy Assessment Name: Ofelia Church Date: 04/24/24 Time: 11:10a-12p Dx: Type II Diabetes Ofelia presents for DM visit, accompanied by her spouse Ryan. Noticed walking up stairs without struggle, which is improvement. Increased heartburn over the last week, attributed to longer periods of fasting per report. Emotions/Mental Health: Today she reported h/o complicated relationship with food. Mother worried she would get T2DM at a young age. Would discourage sugar and other CHO foods. Would consume sf foods/candies as a child. As an adult turns to food for comfort, especially when feeling insecure. Will feel stress about how much food in the house if finances are tight. No food insecurity as a child. Reports feeling like she was the only child of three in the house that was monitored for wt and food intake. As an adult feels she has over eaten as a punishment for herself at times. Endorses feeling as though depression is coming on. States she is unsure if this is seasonal or if comes on randomly. Things that help: movement, music, prayer, checking what is true v emotions, keeping a to-do list, work/life balance. When depressed notices that she may lack in self care, ie showers and brushing hair. Reports taking vitamin D, unsure of type or dose. Diet Recall: 830-9a: protein shake 1-2p: nothing or leftovers; sweet potato with beef+ veggies sn: nothing or pickles or small chocolate 6-7p: small sandwich (pepperoni, cheese, ham, salami) + 2/3-1c fruit (grapes, sheryl, watermelon) 930p: nothing OR Austrian yogurt frozen bar Beverages: sf soda, water, instant coffee in protein shake struggling to eat enough during the day. Gets busy and forgets to eat. Medications reducing appetite. Ongoing: Eye exam in 12 months: no (insurance barrier with work insurance-- plans to improve in the next few months) Dental exam in 12 months: yes (free cleaning last July at a free clinic) Checks feet at home, some numbness in small toes on each foot. Improved over the last few months with wt loss. Not on any GLP1 due to cost. Taking Metformin for Dm and phentermine for wt loss with recently added topiramate. States this has reduced her feeling off in the evening and morning. Plans to start GLP1 after insurance coverage is worked out. Anthropometrics: Ht: 61 Wt: 310# reported Hx Wt: 340# Physical Activity: Goal to run again once wt is under 250# per report. Got a standing desk at work. 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 Trying to move more at work. wants to go to the gym. More walking recently, ie music festival. Shooting hoops. Noticed more energy with movement. Self-Monitoring Blood Glucose: None, wore CGM last visit and numbers in goal. Diabetes Medications: 500mg Metformin AM Pertinent Labs: HgA1c: 7% 12/2023 Past Medical History: (Last Reviewed 08/20/23 @ 12:51 by Trent Burns PA-C) Anxiety Atypical chest pain BMI 60.0-69.9, adult Dyspepsia Eczema of both hands Elevated platelet count Fatigue GERD (gastroesophageal reflux disease) Impaired fasting glucose Migraine BRAY (nonalcoholic steatohepatitis) Non-alcoholic fatty liver disease Obesity Panic disorder (04/23/17) Pre-diabetes Prediabetes (06/2021) SOB (shortness of breath) on exertion URI (upper respiratory infection) Nutrition Rx: Carbohydrates: Meal:30g Snack:15-30g Nutrition Diagnosis: - Food and nutrition related knowledge deficit r/t no previous mnt aeb pt report- in progress - Physical inactivity r/t limitations with comfort / body size aeb pt report- improved - Inconsistent energy intake r/t forgetting meals/snack aeb diet recall- new Intervention: This participant was very receptive. Provided appropriate educational handouts. Discussed the following topics: Discussed meal timing Encouraged small freq meals/snacks for health and reduced binging risk Discussed food relationship hx and strategies Encouraged movement that feels good to help with emotions and health Reflux MNT recs Created SMART goals for patient self-care and success. Goals: Try adding movement you enjoy, ie shooting hoops - met Set timer for meal/snack time- new If not hungry mid day, try shake or smoothie- new check vitamin D supplement for dose and D3- new Keep up movement for mental health- new Follow-up: JAYLEN CABALLERO follow-up in 2-3 weeks Leah Serna RDN, ADA Certified Diabetes Care and Ice Scraper P: [phone] Thank you for this referral
== END ==
PROVIDERS: PCP Student in an Organized Health Care Education/Training Program; Referring Provider Student in an Organized Health Care Education/Training Program
DX: E11.9 Type 2 diabetes mellitus without complications (principal); Z79.84 Long term (current) use of oral hypoglycemic drugs; Z71.3 Dietary counseling and surveillance
CPT/HCPCS: 97803

== ENCOUNTER → 2024-04-30 09:29 | Outpatient (CLI) | payer BC, SELFPAY | PROVIDERS: PCP Student in an Organized Health Care Education/Training Program; Visit Provider Physician Assistant | DX: R31.9 Hematuria, unspecified (principal) | CPT/HCPCS: 87077; 87086; 87186 ==

== ENCOUNTER 2024-05-03 20:32 | Emergency (ER) | payer BC, SELFPAY ==
[2024-05-03 20:36] VITALS: BP 165/105; PULSE 107; RESP 22; TEMP 36.6; O2SAT 100; BMI 57.8
--- NOTE | 2024-05-03 21:00 | ED.GENADULT ---
HPI - General Adult General Chief complaint: Abdominal Pain Stated complaint: R Side Kidney Pain Time Seen by Provider: 05/03/24 20:44 Source: patient Mode of arrival: Ambulatory History of Present Illness HPI narrative: Patient is a 74-year-old female. On Saturday of last week was seen in the walk-in clinic and diagnosed with pyelonephritis. She was placed on Cipro. Subsequent urine culture did show a pansensitive E coli. She has been taking the antibiotic as directed. She was treated for multiple days for pyelonephritis. She also states she has not had a bowel movement since . She did take MiraLax earlier today. She states that the blood that she was having in her urine is now gone. She was not having any dysuria. Some nausea but no vomiting. No fevers. Does have nausea medication at home. She states that they thought that maybe she had had a kidney stone at the time of the pyelonephritis but no imaging studies were done. She comes in the emergency department today for continued right-sided pain. Related Data Home Medications Medication Instructions Recorded Confirmed Saccharomyces boulardii 250 mg 250 mg PO BID 04/30/24 04/30/24 capsule (Daily Probiotic (S. boulardii)) docosahexaenoic acid 200 mg mg PO 04/30/24 04/30/24 capsule ( DHA) Previous Rx's Medication Instructions Recorded metformin 500 mg tablet 500 mg PO DAILY #30 tabs 01/16/24 ondansetron 4 mg disintegrating 4 mg PO Q8H #30 tabs 01/16/24 tablet phentermine 37.5 mg tablet 37.5 mg PO DAILY #30 tabs 01/31/24 fluticasone propionate 44 2 puff inhalation BID #10.6 grams 02/10/24 mcg/actuation HFA aerosol inhaler fluticasone propionate 50 2 spray intranasal DAILY #16 grams 03/20/24 mcg/actuation nasal spray,suspension (Flonase Allergy Relief) topiramate 25 mg tablet 25 mg PO DAILY #30 tabs 03/20/24 ciprofloxacin HCl 500 mg tablet 500 mg PO BID #14 tabs 04/30/24 tamsulosin 0.4 mg capsule (Flomax) 0.4 mg PO DAILY #14 caps 04/30/24 Allergies Allergy/AdvReac Type Severity Reaction Status Date / Time No Known Drug Allergies Allergy Verified 04/30/24 09:20 Review of Systems Review of Systems ROS Unobtainable: All systems reviewed & are unremarkable except as noted in HPI and below Patient History Medical History Prediabetes (06/2021) BMI 60.0-69.9, adult URI (upper respiratory infection) SOB (shortness of breath) on exertion Pre-diabetes Impaired fasting glucose Elevated platelet count GERD (gastroesophageal reflux disease) Fatigue Migraine Obesity Non-alcoholic fatty liver disease Anxiety Panic disorder (04/23/17) Atypical chest pain Eczema of both hands BRAY (nonalcoholic steatohepatitis) Dyspepsia Family History Father Anxiety Mother Depression with anxiety Social History Smoking Status: Former smoker Smoking Status: Former smoker alcohol intake frequency: holidays/special occasions only Alcohol type: wine Substance Use Type: does not use Exam Initial Vital Signs Initial Vital Signs: Vital Signs Temperature 97.9 F 05/03/24 20:36 Pulse Rate 107 H 05/03/24 20:36 Respiratory Rate 22 05/03/24 20:36 Blood Pressure 165/105 H 05/03/24 20:36 Pulse Oximetry 100 05/03/24 20:36 Oxygen Delivery Method Room Air 05/03/24 20:36 Const General: cooperative, comfortable and No ill appearing HENMT Head: normal to inspection and normocephalic Resp Effort & Inspection: normal respiratory effort Auscultation: clear to auscultation bilaterally Cardio Rate: regular rate Rhythm: regular rhythm GI Inspection: normal to inspection and non-distended Palpation: tender Skin General: no rashes or lesions noted Neuro General: patient alert, patient awake and moves all extremities Extrem General: normal to inspection Course Orders Ordered: ED Orders 05/03/24 20:53 Complete Blood Count AUTO DIFF Stat Comprehensive Metabolic Panel Stat Lipase Stat 05/03/24 20:59 Urine Microscopic Stat 05/03/24 21:03 CT abdomen pelvis w con Stat Discontinued Medications Ketorolac Tromethamine (Ketorolac 30 Mg/Ml Vial) 15 mg IV NOW ONE Stop: 05/03/24 21:05 Last Admin: 05/03/24 21:58 Dose: Not Given Documented By: BS Ondansetron HCl (Ondansetron 4 Mg/2 Ml Inj) 4 mg IV NOW ONE Stop: 05/03/24 21:05 Last Admin: 05/03/24 21:09 Dose: 4 mg Documented By: AMADO Vital Signs Vital signs: Vital Signs - 8 hr 05/03/24 20:36 05/03/24 21:55 05/03/24 21:56 Temperature 97.9 F Pulse Rate 107 H 102 H 87 Respiratory Rate 22 Blood Pressure 165/105 H Pulse Oximetry 100 100 Oxygen Delivery Method Room Air 05/03/24 21:56 05/03/24 22:00 05/03/24 22:00 Temperature Pulse Rate 90 Respiratory Rate Blood Pressure 142/95 H 142/91 H Pulse Oximetry 100 Oxygen Delivery Method Room Air 05/03/24 22:30 Temperature Pulse Rate 98 H Respiratory Rate 18 Blood Pressure Pulse Oximetry 100 Oxygen Delivery Method Medical Decision Making Medical Records Medical records reviewed: Yes I reviewed the patient's medical records. Lab Data Lab results reviewed: Yes I reviewed the patient's lab results. 05/03/24 20:53 05/03/24 20:53 Labs: Lab Results 05/03/24 05/03/24 Range/Units 20:53 20:59 WBC 12.6 H (4.5-11.0) X10^3/uL RBC 4.99 (4.0-5.2) X10^6/uL Hgb 13.6 (12.0-16.0) g/dL Hct 40.9 (36-46) % MCV 81.9 (80-100) fL MCH 27.3 (26-34) PG MCHC 33.3 (30-36) % RDW 14.3 (11.6-14.8) % Plt Count 509 H (150-400) X10^3/uL Neut % (Auto) 54.1 (50-75) % Lymph % (Auto) 35.4 (25-40) % [place] % (Auto) 6.5 (3-14) % Eos % (Auto) 3.4 (2-4) % Baso % (Auto) 0.6 (0-2) % Neut # (Auto) 6800 (2210-4996) /uL Lymph # (Auto) 4400 (0826-1217) /uL [place] # (Auto) 800 (0-900) /uL Eos # (Auto) 400 (0-450) /uL Baso # (Auto) 100 (0-100) /uL Sodium 137 (137-145) mmol/L Potassium 3.9 (3.4-5.1) mmol/L Chloride 104 (98-107) mmol/L Carbon Dioxide 23 (22-32) mmol/L BUN 11 (7-17) mg/dL Creatinine 0.62 (0.52-1.04) mg/dL Estimated GFR > 60 (>60) mL/min BUN/Creatinine Ratio 17.7 (6-22) Glucose 115 H (70-100) mg/dL Calcium 9.3 (8.4-10.2) mg/dL Total Bilirubin 0.5 (0.2-1.3) mg/dL AST 44 H (14-36) IU/L ALT 65 H (<35) IU/L Alkaline Phosphatase 168 H (38-126) U/L Total Protein 8.9 H (6.3-8.2) g/dL Albumin 4.4 (3.5-5.0) g/dL Globulin 4.5 H (1.7-4.1) g/dL Albumin/Globulin Ratio 1.0 (1.0-2.8) Lipase 56 (23-300) U/L Urine RBC 1-5/hpf D (0-5/HPF) Urine WBC 1-5/hpf (0-5/HPF) Ur Squamous Epith Cells 1-5 /hpf (0-5/HPF) Urine Bacteria None seen (None) Urine Mucus 1+ H (Negative) Ur Culture Indicated? Cult not indicated Vol Urine Centrifuged 10ml (spun) Point of Care Testing Test Results Negative Urine Dip Bedside Urine Glucose Negative Bedside Urine Bilirubin - Negative Bedside Urine Ketone - Negative Urine Specific [place] 1.025 Bedside Urine Occult Blood + Bedside Urine pH 5.5 Bedside Urine Protein - Negative Bedside Urine Urobilinogen - Negative Bedside Urine Nitrite - Negative Bedside Urine Leukocytes - Negative Esterase Point of care testing: Point of Care Testing Test Results Negative Urine Dip Bedside Urine Glucose Negative Bedside Urine Bilirubin - Negative Bedside Urine Ketone - Negative Urine Specific [place] 1.025 Bedside Urine Occult Blood + Bedside Urine pH 5.5 Bedside Urine Protein - Negative Bedside Urine Urobilinogen - Negative Bedside Urine Nitrite - Negative Bedside Urine Leukocytes - Negative Esterase Imaging Data CT scan - abdomen/pelvis: Radiologist's Impression: PROCEDURE: CT ABDOMEN PELVIS W CON INDICATIONS: R sided flank pain hx of pyelo on ABX TECHNIQUE: After the administration of intravenous contrast, axial sections acquired from the lung bases to the pubic symphysis. Coronal and sagittal reformats were performed. For radiation dose reduction, the following was used: automated exposure control, adjustment of mA and/or kV according to patient size. COMPARISON: [facility], CT, CT ABDOMEN PELVIS W CON, 09/16/2021, 19:50. FINDINGS: Image quality: Diagnostic Lower chest: Left base atelectasis. Mildly patulous distal esophagus. Normal heart size where visualized. A prominent left cardiophrenic lymph node is again seen. Liver: Hepatomegaly and possible steatosis. Gallbladder and biliary system: Unremarkable, nondilated Pancreas: No ductal dilation Spleen: Nonenlarged Adrenals: No discrete nodules Kidneys: No solid mass or hydronephrosis Vessels and lymph nodes: The main portal vein is patent. No abdominal aortic aneurysm or pathologic lymph nodes by size criteria. Bowel and peritoneum: No evidence of small bowel obstruction. No pathologic ascites. There is increased fecal loading in the proximal colon. The appendix appears nondilated. Body wall: Unremarkable Pelvis: Bladder is unremarkable and under distended. Reproductive organs are not well evaluated on this study, overall unremarkable. Bones: Mild lower lumbar degenerative changes. No acute or suspicious abnormality. IMPRESSION: No obstructing calcified stone. Hepatomegaly and possible steatosis. Other findings above. MDM Narrative Medical decision making narrative: Patient is nontoxic appearing. Does have a leukocytosis however his afebrile. Is tolerating oral intake. Review of her medical record shows that she does have a pansensitive E coli so the ciprofloxacin that she was taking should be appropriate. CT scan today does not show any signs of kidney stone/ureteral stone. There is no signs of pyelonephritis on the CT scan. No other acute intra-abdominal issues noted as well. She does have quite a bit of stool in the right hemicolon which does correspond to where she was having discomfort today. I discuss this with her. Informed her that she was most likely going to need to increase the amount of laxatives that she was taken. Encouraged her to continue to take the antibiotics. Given her presentation today I do not feel that admission to the hospital was warranted she was still tolerating oral intake and can continue to take her current antibiotics. No indication to change her antibiotics. She was given return precautions. Expressed understanding and agreement with plan. Discharge Plan Departure Patient Disposition: Home Clinical Impression: Pyelonephritis, Abdominal pain, Constipation Instructions: DI for Abdominal Pain-Adult, DI for Constipation Activity Restrictions/Additional Instructions: You do need to continue to take the antibiotics as directed until they are gone. I also recommend that you increase your use of the MiraLax at home. You can do this multiple times a day if needed. Contact your primary care doctor for a follow-up. Return to the emergency department for new symptoms. Prescriptions: No Action metformin 500 mg tablet 500 mg PO DAILY Qty: 30 3RF ondansetron 4 mg tablet,disintegrating 4 mg PO Q8H Qty: 30 0RF phentermine 37.5 mg tablet 37.5 mg PO DAILY Qty: 30 3RF Rx Instructions: must administer 30 minutes before or 1-2 hours after breakfast fluticasone propionate [Flonase Allergy Relief] 50 mcg/actuation spray,suspension 2 spray intranasal DAILY Qty: 16 0RF Rx Instructions: administer into each nostril topiramate 25 mg tablet 25 mg PO DAILY Qty: 30 3RF DHA 200 mg capsule PO Saccharomyces boulardii [Daily Probiotic (S. boulardii)] 250 mg capsule 250 mg PO BID ciprofloxacin HCl 500 mg tablet 500 mg PO BID Qty: 14 0RF tamsulosin [Flomax] 0.4 mg capsule 0.4 mg PO DAILY Qty: 14 0RF fluticasone propionate 44 mcg/actuation HFA aerosol inhaler 2 puff inhalation BID Qty: 10.6 0RF Referrals: Neeta Langley MD [Primary Care Provider] - Stand Alone Forms: Patient Portal/API
--- NOTE | 2024-05-03 21:03 | DI.CT.S_ITS ---
PROCEDURE: CT ABDOMEN PELVIS W CON INDICATIONS: R sided flank pain hx of pyelo on ABX TECHNIQUE: After the administration of intravenous contrast, axial sections acquired from the lung bases to the pubic symphysis. Coronal and sagittal reformats were performed. For radiation dose reduction, the following was used: automated exposure control, adjustment of mA and/or kV according to patient size. COMPARISON: [facility], CT, CT ABDOMEN PELVIS W CON, 09/16/2021, 19:50. FINDINGS: Image quality: Diagnostic Lower chest: Left base atelectasis. Mildly patulous distal esophagus. Normal heart size where visualized. A prominent left cardiophrenic lymph node is again seen. Liver: Hepatomegaly and possible steatosis. Gallbladder and biliary system: Unremarkable, nondilated Pancreas: No ductal dilation Spleen: Nonenlarged Adrenals: No discrete nodules Kidneys: No solid mass or hydronephrosis Vessels and lymph nodes: The main portal vein is patent. No abdominal aortic aneurysm or pathologic lymph nodes by size criteria. Bowel and peritoneum: No evidence of small bowel obstruction. No pathologic ascites. There is increased fecal loading in the proximal colon. The appendix appears nondilated. Body wall: Unremarkable Pelvis: Bladder is unremarkable and under distended. Reproductive organs are not well evaluated on this study, overall unremarkable. Bones: Mild lower lumbar degenerative changes. No acute or suspicious abnormality. IMPRESSION: No obstructing calcified stone. Hepatomegaly and possible steatosis. Other findings above. Dictated by: Marin Echols M.D. on 05/03/2024 at 21:58 Approved by: Marin Echols M.D. on 05/03/2024 at 22:01
[2024-05-03] MEDS: ONDANSETRON 4 MG/2 ML INJ IV (21:09)
[2024-05-03 21:16] LABS: Add Manual Diff / Slide Review NO; Basophils Absolute Auto 100 /uL (0-100); Basophils Percent Auto 0.6 % (0-2); Eosinophils Absolute Auto 400 /uL (0-450); Eosinophils Percent Auto 3.4 % (2-4); Hematocrit 40.9 % (36-46); Hemoglobin 13.6 g/dL (12.0-16.0); Lymphocytes Absolute Auto 4400 /uL (1100-4500); Lymphocytes Percent Auto 35.4 % (25-40); Mean Corpuscular HGB Conc 33.3 % (30-36); Mean Corpuscular Hemoglobin 27.3 PG (26-34); Mean Corpuscular Volume 81.9 fL (80-100); Monocytes Absolute Auto 800 /uL (0-900); Monocytes Percent Auto 6.5 % (3-14); Neutrophils Absolute Auto 6800 /uL (1500-7000); Neutrophils Percent Auto 54.1 % (50-75); Platelet Count 509 X10^3/uL (150-400); Red Blood Cell Count 4.99 X10^6/uL (4.0-5.2); Red Cell Distribution Width 14.3 % (11.6-14.8); White Blood Cell Count 12.6 X10^3/uL (4.5-11.0)
[2024-05-03 21:19] LABS: Alanine Aminotransferase 65 IU/L (<35); Albumin 4.4 g/dL (3.5-5.0); Alkaline Phosphatase 168 U/L (38-126); Aspartate Aminotransferase 44 IU/L (14-36); BUN Creatinine Ratio 17.7 (6-22); Bilirubin Total 0.5 mg/dL (0.2-1.3); Blood Urea Nitrogen 11 mg/dL (7-17); Calcium 9.3 mg/dL (8.4-10.2); Carbon Dioxide 23 mmol/L (22-32); Chloride 104 mmol/L (98-107); Estimated Glomerular Filt Rate > 60 mL/min (>60); Globulin 4.5 g/dL (1.7-4.1); Glucose 115 mg/dL (70-100); HEMOLYSIS < 15 (0-50); Lipase 56 U/L (23-300); Potassium 3.9 mmol/L (3.4-5.1); Sodium 137 mmol/L (137-145); Total Protein 8.9 g/dL (6.3-8.2)
[2024-05-03 21:20] LABS: Bacteria Urine None Seen; Culture Indicated Urine Cult Not Indicated; Mucus Urine 1+ (Negative); RBC Urine 1-5/HPF (0-5/HPF); Squamous Epithelial Cell Urine 1-5 /HPF (0-5/HPF); Urine Volume 10mL (spun); WBC Urine 1-5/HPF (0-5/HPF)
[2024-05-03 21:55] VITALS: PULSE 102
[2024-05-03 21:56] VITALS: BP 142/95; PULSE 87; O2SAT 100
[2024-05-03 22:00] VITALS: BP 142/91; PULSE 90; O2SAT 100
[2024-05-03 22:30] VITALS: PULSE 98; RESP 18; O2SAT 100
== END 2024-05-03 22:30 | disposition home or self-care (01) ==
PROVIDERS: Emergency Provider Emergency Medicine; PCP Student in an Organized Health Care Education/Training Program
DX: N12 Tubulo-interstitial nephritis, not specified as acute or chronic (principal); K59.00 Constipation, unspecified; R10.9 Unspecified abdominal pain; R11.0 Nausea
CPT/HCPCS: 36415; 74177; 80053; 81003; 81015; 81025; 83690; 85025; 96374; 99284; J2405; Q9967

== ENCOUNTER → 2024-05-15 11:01 | Outpatient (CLI) | payer BC, SELFPAY ==
--- NOTE | 2024-05-15 11:11 | DIAB.MNTFU ---
Follow-up Diabetes Medical Nutrition Therapy Assessment Name: Ofelia Church Date: 05/15/24 Time: 1105-12 Dx: Type II Diabetes Ofelia presents for DM visit, accompanied by her spouse Ryan. Had ED visit with right side pain. Reports potential UTI, bladder infection, kidney stone? Took antibiotics, now improved-- no pain. Having lunch more often, sometimes skipping breakfast though. Eating lunch and dinner consistently. Sick of protein drinks. Wants to try clear low sugar protein supplement. Diet Recall: 830-9a: nothing or protein shake 1-2p: leftovers; sweet potato with beef+ veggies OR sandwich 6 +/- half c fruit OR sf chocolate OR handful chips sn: nothing 6-7p: small sandwich (pepperoni, cheese, ham, salami) + 2/3-1c fruit (grapes, sheryl, watermelon) OR tomato/pesto/mozz sandwich 930p: Swedish yogurt frozen bar Beverages: sf soda, water, instant coffee in protein shake, sugar free mocha, tea Last visit we discussed emotional/mental health with food relationship. She had reported feeling somewhat targeted in her home about weight loss by her mom. Today she was tearful about an interaction with her mom, where the family was making pizza's for a birthday, and her mom told her she should not eat any pizza. This certainly hurt her feelings. Also today, she reports avoiding bad foods. Endorses struggles with avoiding foods that are considered treats, even in small portions. Foods then seem to call to her, and she is trying to avoid stress eating them. Reports she thinks she is likely low in vitamin D, but not sure what to take. Ongoing: Eye exam in 12 months: no (insurance barrier with work insurance-- plans to improve in the next few months) Dental exam in 12 months: yes (free cleaning last July at a free clinic) Not on any GLP1 due to cost. Taking Metformin for Dm and phentermine for wt loss with recently added topiramate. States this has reduced her feeling off in the evening and morning. Plans to start GLP1 after insurance coverage is worked out. Anthropometrics: Ht: 61 Wt: 310# reported previously Hx Wt: 340# Physical Activity: Goal to run again once wt is under 250# per report. Got a standing desk at work. 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 Trying to move more at work. wants to go to the gym. Likes the gym. Wants to make more time for it. Started water aerobics once per week with sister in law. Self-Monitoring Blood Glucose: None, wore CGM last visit and numbers in goal. Diabetes Medications: 500mg Metformin AM Pertinent Labs: HgA1c: 7% 12/2023 Past Medical History: (Last Reviewed 08/20/23 @ 12:51 by Trent Burns PA-C) Anxiety Atypical chest pain BMI 60.0-69.9, adult Dyspepsia Eczema of both hands Elevated platelet count Fatigue GERD (gastroesophageal reflux disease) Impaired fasting glucose Migraine BRAY (nonalcoholic steatohepatitis) Non-alcoholic fatty liver disease Obesity Panic disorder (04/23/17) Pre-diabetes Prediabetes (06/2021) SOB (shortness of breath) on exertion URI (upper respiratory infection) Nutrition Rx: Carbohydrates: Meal:30g Snack:15-30g Nutrition Diagnosis: - Food and nutrition related knowledge deficit r/t no previous mnt aeb pt report- in progress - Physical inactivity r/t limitations with comfort / body size aeb pt report- improved / in progress - Inconsistent energy intake r/t forgetting meals/snack aeb diet recall- in progress Intervention: This participant was very receptive. Provided appropriate educational handouts. Discussed the following topics: Discussed meal timing Encouraged small freq meals/snacks for health and reduced binging risk Discussed food relationship hx and strategies Encouraged healthy boundaries with family regarding her body and/or diet Discouraged good food bad food mentality Encouraged moderation in all foods and guilt free jacky of eating tasty things Encouraged movement that feels good to help with emotions and overall health Reviewed vitamin D3 general recs Easy breakfast ideas Created SMART goals for patient self-care and success. Goals: Set timer for meal/snack time- improved If not hungry mid day, try shake or smoothie- d/c check vitamin D supplement for dose and D3- not met Keep up movement for mental health- met If getting D vit, choose D3- new Check out gym 1x - new Try other breakfast options- new Follow-up: JAYLEN CABALLERO follow-up in June due to patient scheduling conflicts. Leah Serna RDN, ADA Certified Diabetes Care and [employer] Mix[employer] Operator P: [phone] Thank you for this referral
== END ==
PROVIDERS: PCP Student in an Organized Health Care Education/Training Program; Referring Provider Student in an Organized Health Care Education/Training Program
DX: E11.9 Type 2 diabetes mellitus without complications (principal); Z79.84 Long term (current) use of oral hypoglycemic drugs; Z71.3 Dietary counseling and surveillance
CPT/HCPCS: 97803